=== PATIENT | female | born 1935 | race Caucasian/White ===

== ENCOUNTER 2017-03-31 20:13 | Emergency (ER) | payer MEDICARE, OTHER ==
--- NOTE | 2017-03-31 21:23 | ERNOTE ---
Abdominal HPI - General Chief Complaint: Abdominal Pain Time Seen by Provider: 03/31/17 21:13 Source: patient, family Exam Limitations: no limitations - Immun/Allergies/Home Medications Immunizatons: IMMUNIZATION HX Immunizations Up to Date No Immunizations Comment 2007 History of Influenza Vaccine No Hx Pneumococcal Vaccination Yes Allergies/Adverse Reactions: Allergies prednisone Adverse Reaction (Intermediate, Verified 05/14/16 17:05) fast HR, "feels like heart is going to jump out of skin" Sulfa (Sulfonamide Antibiotics) [Sulfa(Sulfonamide Antibiotics)] Adverse Reaction (Mild, Verified 05/14/16 17:05) RASH Home Medications: HOME MEDICATIONS Atorvastatin Calcium 10 mg PO HS 05/24/12 [Last Taken 11/26/15] Beta-Carotene(A) W-C , E/Min [Ocuvite] 1 tab PO DAILY 05/24/12 [Last Taken 11/26] Metoprolol Tartrate 25 mg PO BID 05/24/12 [Last Taken 11/27/15] Omeprazole [Prilosec Generic] 20 mg PO BID 05/24/12 [Last Taken 11/27/15] Acetaminophen [Tylenol] 1,000 mg PO Q6H PRN 05/21/15 [Last Taken Unknown] Blood Sugar Diagnostic, Drum [Accu-Chek Compact] 1 each MC DAILY 05/21/15 [Last Taken 11/27/15] Cholecalciferol (Vitamin D3) [Vitamin D] 1,000 unit PO DAILY 05/21/15 [Last Taken 11/27/15] Furosemide [Lasix] 20 mg PO 2XW 05/21/15 [Last Taken 11/24/15] Glimepiride [Amaryl] 8 mg PO DAILY@0700 05/21/15 [Last Taken 11/27/15] Losartan Potassium [Cozaar] 50 mg PO DAILY 05/21/15 [Last Taken 11/27/15] Potassium Chloride [Klor-Con 10] 10 meq PO 2XW 05/21/15 [Last Taken 11/24/15] sitaGLIPtin PHOSPHATE [Januvia] 25 mg PO DAILY 05/21/15 [Last Taken 11/27/15] traMADol HCL [Ultram] 50 mg PO Q6H PRN 05/21/15 [Last Taken Unknown] traZODone HCL [Desyrel] 100 mg PO HS PRN 05/21/15 [Last Taken 11/26/15] Azelastine/Fluticasone [Dymista Nasal [place]] 1 spray NS BID 10/29/15 [Last Taken 11/27/15] Cyanocobalamin [Vitamin B-12] 1,000 mcg PO DAILY 10/29/15 [Last Taken 11/27/15] HYDROcodone/ACETAMINOPHEN [Lortab 5-325 mg Tablet] 1 each PO Q6H PRN 10/29/15 [ Last Taken Unknown] Propylene Glycol/Peg 400 [Systane 0.3-0.4% Eye Drops] 1 drop OP BID 10/29/15 [ Last Taken 11/27/15] clonazePAM [Klonopin] 0.5 mg PO DAILY PRN 10/29/15 [Last Taken Unknown] Estrogens, Conjugated [Premarin] 0.5 gm VG 2XW 11/27/15 [Last Taken Unknown] Levofloxacin [Levaquin] 500 mg PO Q48H #5 tablet 04/01/17 [Last Taken Unknown] - History of Present Illness Narrative: Pt states she had abdominal pain that started in the RLQ and moved to the RUQ then across the upper abdomen. Timing: getting worse Quality: moderate, cramping Activities at Onset: none Modifying Factors - (Worsens): Present: movement Review of Systems - Review of Systems Constitutional: Absent: recent illness EYE: Absent: no symptoms reported ENT: Absent: no symptoms reported Respiratory: Absent: shortness of breath Cardiology: Absent: chest pain Gastrointestinal/Abdominal: Present: See HPI, diarrhea, abdominal pain. Absent : nausea, vomiting Genitourinary: Present: no symptoms reported Musculoskeletal: Present: no symptoms reported Skin: Present: no symptoms reported Neurological: Present: no symptoms reported Endocrine: Present: no symptoms reported Hematologic/Lymphatic: Present: no symptoms reported Psych: Present: no symptoms reported - Patient's Past Medical History Patient History - Medical: Arthritis, Cataracts, Diabetes Type 2, Depression, GERD, Osteoarthritis, Renal Disease, Other Patient History - Cardiac/Respiratory: Hypertension, Hyperlipidemia Patient History - Cancer: No Hx of Cancer Patient History - Surgical Procedures: Cataracts, Cholecystectomy, Colonoscopy, Hysterectomy, Other Patient History - Other: None - Family History Father Family History - Medical: , Other Family History - Cardiac/Respiratory: No pertinent hx Brother Family History - Medical:  Family History - Cardiac/Respiratory: No pertinent hx Mother Family History - Medical: , Alzheimer's Disease - Social History Living Situations: alone Abuse History: No History of abuse Psych History: No pertinent hx Smoking Status: Never smoker Have you smoked in the past 12 months: No Do you dip or chew tobacco: No Alcohol Use: none Drug Use: none - Immunizations Immunizations Up to Date: No Hx Pneumococcal Vaccination: Yes History of Influenza Vaccine: No Physical Exam - Physical Exam General Appearance: Present: wd/wn, alert, no apparent distress Head Exam: Present: normal inspection, no evidence of injury Neck: Present: normal inspection, nontender Respiratory: Present: no respiratory distress, normal breath sounds, lungs clear Cardiovascular/Chest: Present: regular rate, rhythm, no murmur, normal peripheral pulses Gastrointestinal/Abdominal: Present: tenderness - RUQ and RLQ, abnormal bowel sounds - hyperactive Back Exam: Present: normal inspection, normal range of motion Extremity Exam: Present: normal inspection, normal range of motion, no edema Neurological Exam: Present: alert, oriented, normal mood/affect Skin Exam: Present: normal color, warm/dry Lymphatic Exam: Present: no adenopathy ED Progress - Results and Orders Patient's Lab Results:: I have reviewed the patient's lab results. Results and Orders: Laboratory Tests 03/31/17 03/31/17 03/31/17 21:10 21:36 21:36 WBC 11.3 H Hgb 9.7 L Hct 28.0 L Plt Count 248 Sodium 135 Potassium 4.7 H Chloride 100 Carbon Dioxide 19.8 L BUN 61 H Creatinine 2.73 H D Random Glucose 203 H Calcium 8.6 Total Bilirubin 0.2 AST 14 ALT 26 Alkaline Phosphatase 138 Total Protein 7.3 Albumin 3.3 L Amylase 121 H Lipase 210 Urine Color Yellow Urine Appearance Cloudy Urine pH 6.0 Ur Specific [place] 1.015 Urine Protein 100 H Urine Glucose (UA) Negative Urine Ketones Negative Urine Blood 50 H Urine Nitrate Negative Urine Bilirubin Negative Prot Sulfosalicylic Acd 3+ H Urine Urobilinogen Normal Ur Leukocyte Esterase 500 H Urine RBC >50 H Urine WBC >50 H Urine Culture Comments Culture to follow - Vital Signs Patient's Vital Signs:: I have reviewed the patient's vital signs. Vital Signs: Vital Signs 03/31/17 20:28 Temperature 36.0 C L Pulse Rate 94 Respiratory 20 Rate Blood Pressure 141/63 O2 Sat by Pulse 96 Oximetry - Progress/Reassessment Chief Complaint: Abdominal Pain Departure - Departure Clinical Impression: Pyelonephritis Disposition: Home self-care Condition: Good Instructions: Pyelonephritis, Adult, [id number] Referrals: Melina Floyd DO [Primary Care Provider] - Prescriptions: Levofloxacin [Levaquin] 500 mg PO Q48H #5 tablet
[2017-03-31 21:34] LABS: Urine Bilirubin Negative (NEGATIVE); Urine Blood 50 /ul (NEGATIVE); Urine Ketone Negative (NEGATIVE); Urine Nitrite Negative (NEGATIVE); Urine Protein 100 mg/dL (NEGATIVE); Urine Specific Gravity 1.015 SP.GR. (1.005-1.010); Urine Urobilinogen Normal (NORMAL)
[2017-03-31 21:37] LABS: Hemoglobin 9.7 gm/dL (12.5-16.0); Mean Cell Volume 104.9 fl (78-100); Mean Corpuscular Hemoglobin 36.3 pg (27-31); Mean Corpuscular Hgb Conc 34.6 g/dl (32-36); Mean Platelet Volume 10.1 fl (6.0-9.5); Neutrophil # 5.8 K/mm3 (1.3-6.0); Neutrophil % 51.6 % (42-75.0); Platelet Count 248 K/mm3 (150-450); Red Blood Count 2.67 M/mm3 (4.2-5.4); Red Cell Distribution Width 14.6 % (11.5-14.0); White Blood Count 11.3 K/mm3 (4.0-10.5)
[2017-03-31 21:52] LABS: Urine Appearance Cloudy; Urine Color Yellow
[2017-03-31 21:53] LABS: Urine RBC >50 /hpf (0-5); Urine WBC >50 /hpf (0-5)
[2017-03-31 21:54] LABS: Albumin * 3.3 gm/dl (3.4-5.0); Anion Gap 19.9 mmol/L (6.8-13.8); BUN/Creatinine Ratio 22.3 (9.0-21.6); Bilirubin, Total 0.2 mg/dL (0.0-1.1); Ca. Corrected For Albumin 8.8 mg/dL (8.4-10.2); Calcium * 8.6 mg/dL (7.9-10.9); Carbon Dioxide 19.8 mmol/L (24-32.6); Potassium 4.7 mmol/L (3.4-4.6); Total Protein 7.3 gm/dL (6.2-8.2)
[2017-03-31] MEDS ORDERED: NORMAL SALINE 1,000 ML IV ONE (23:39)
[2017-04-01 01:14] VITALS: BP 157/86
[2017-04-01] MEDS ORDERED: LEVOFLOXACIN 500 MG TABLET PO ONE (02:25)
[2017-04-01] MEDS ORDERED: LEVOFLOXACIN 500 MG TABLET ONE (02:32)
[2017-04-01] MEDS ORDERED: LEVOFLOXACIN 250 MG TABLET ONE (02:33)
== END 2017-04-01 02:38 | disposition home or self-care (01) ==
LOC: ER 20:13
DX: N12 Tubulo-interstitial nephritis, not specified as acute or chronic (principal)

== ENCOUNTER 2017-04-11 08:45 | Inpatient (IN) | payer MEDICARE, OTHER ==
[2017-04-11 09:21] LABS: Hemoglobin A1C 8.6 % (4.00-6.0)
[2017-04-11 09:32] LABS: Anion Gap 17.4 mmol/L (6.8-13.8); Blood Urea Nitrogen 73 mg/dL (3-23); Calcium * 8.1 mg/dL (7.9-10.9); Carbon Dioxide 19.9 mmol/L (24-32.6); Chloride 101 mmol/L (97-106); Glucose * 214 mg/dL (70-110); Potassium 5.3 mmol/L (3.4-4.6); Sodium 133 mmol/L (132-142)
--- NOTE | 2017-04-11 15:22 | HP ---
Chief Complaint - Chief Complaint Date of Service: 04/11/17 Time of Service: 15:09 Chief Complaint: Worsening kidney function History of Present Illness: The patient has a 3 month diabetes follow-up visit with me next week so in preparation for this visit she had her diabetes labs including a BMP and a A1c completed earlier today. Her creatinine is significantly elevated at 3.3. Of note, the patient's baseline creatinine is around 1.5-1.7. The patient follows with lay ups assembler, Dr. Sheldon and I called him today to discuss her worsening kidney function and he agreed with admission to the hospital for further workup and evaluation. The patient denies any new issues or concerns but continues to complain of nausea and vague abdominal pain which has been going on for at least the past 3 months. The patient was recently in the emergency department where she was found to have a urinary tract infection and was treated with oral Levaquin. Overall, the patient states that she feels at her baseline. She denies any new medications other than the antibiotic (levaquin) she was prescribed through the emergency department. - Patient's Past Medical History Patient History - Medical: Arthritis, Cataracts, Diabetes Type 2, Depression, GERD, Osteoarthritis, Renal Disease, Other Patient History - Cardiac/Respiratory: Hypertension, Hyperlipidemia Patient History - Cancer: No Hx of Cancer Patient History - Surgical Procedures: Cataracts, Cholecystectomy, Colonoscopy, Hysterectomy, Other Patient History - Other: None - Family History Father Family History - Medical: , Other Family History - Cardiac/Respiratory: No pertinent hx Brother Family History - Medical:  Family History - Cardiac/Respiratory: No pertinent hx Mother Family History - Medical: , Alzheimer's Disease - Social History Living Situations: alone Abuse History: No History of abuse Psych History: No pertinent hx Have you smoked in the past 12 months: No Do you dip or chew tobacco: No Alcohol Use: none Drug Use: none - Immunizations Immunizations Up to Date: No Hx Pneumococcal Vaccination: Yes History of Influenza Vaccine: No Review Of Systems (GEN) - Review of Systems Generalized/Overall Review: Present: Fatigue - chronic EENTM: Present: No Symptoms Reported Respiratory: Present: No Symptoms Reported Cardiac: Present: Edema - chronic Abdominal: Present: Nausea, Abdominal Pain Genitourinary: Present: No Symptoms Reported Musculoskeletal: Present: Joint Pain - chronic Neurological: Present: No Symptoms Reported Skin: Present: No Symptoms Reported Endocrine: Present: No Symptoms Reported Misc: All systems neg except as marked Immunizations: IMMUNIZATION HX Immunizations Up to Date No History of Influenza Vaccine No Hx Pneumococcal Vaccination Yes Allergies/Adverse Reactions: Allergies Allergy/AdvReac Type Severity Reaction Status Date / Time prednisone AdvReac Intermediate fast HR, Verified 05/14/16 17:05 "feels like heart is going to jump out of skin" Sulfa (Sulfonamide AdvReac Mild RASH Verified 05/14/16 17:05 Antibiotics) [Sulfa(Sulfonamide Antibiotics)] Home Medications: HOME MEDICATIONS Atorvastatin Calcium 10 mg PO HS 05/24/12 [Last Taken 11/26/15] Beta-Carotene(A) W-C , E/Min [Ocuvite] 1 tab PO DAILY 05/24/12 [Last Taken 11/26] Metoprolol Tartrate 25 mg PO BID 05/24/12 [Last Taken 11/27/15] Omeprazole [Prilosec Generic] 20 mg PO BID 05/24/12 [Last Taken 11/27/15] Acetaminophen [Tylenol] 1,000 mg PO Q6H PRN 05/21/15 [Last Taken Unknown] Blood Sugar Diagnostic, Drum [Accu-Chek Compact] 1 each MC DAILY 05/21/15 [Last Taken 11/27/15] Cholecalciferol (Vitamin D3) [Vitamin D] 1,000 unit PO DAILY 05/21/15 [Last Taken 11/27/15] Furosemide [Lasix] 20 mg PO 2XW 05/21/15 [Last Taken 11/24/15] Glimepiride [Amaryl] 8 mg PO DAILY@0700 05/21/15 [Last Taken 11/27/15] Losartan Potassium [Cozaar] 50 mg PO DAILY 05/21/15 [Last Taken 11/27/15] Potassium Chloride [Klor-Con 10] 10 meq PO 2XW 05/21/15 [Last Taken 11/24/15] sitaGLIPtin PHOSPHATE [Januvia] 25 mg PO DAILY 05/21/15 [Last Taken 11/27/15] traMADol HCL [Ultram] 50 mg PO Q6H PRN 05/21/15 [Last Taken Unknown] traZODone HCL [Desyrel] 100 mg PO HS PRN 05/21/15 [Last Taken 11/26/15] Azelastine/Fluticasone [Dymista Nasal [place]] 1 spray NS BID 10/29/15 [Last Taken 11/27/15] Cyanocobalamin [Vitamin B-12] 1,000 mcg PO DAILY 10/29/15 [Last Taken 11/27/15] HYDROcodone/ACETAMINOPHEN [Lortab 5-325 mg Tablet] 1 each PO Q6H PRN 10/29/15 [ Last Taken Unknown] Propylene Glycol/Peg 400 [Systane 0.3-0.4% Eye Drops] 1 drop OP BID 10/29/15 [ Last Taken 11/27/15] clonazePAM [Klonopin] 0.5 mg PO DAILY PRN 10/29/15 [Last Taken Unknown] Estrogens, Conjugated [Premarin] 0.5 gm VG 2XW 11/27/15 [Last Taken Unknown] Levofloxacin [Levaquin] 500 mg PO Q48H #5 tablet 04/01/17 [Last Taken Unknown] Exam - Exam Vital Signs: Vital Signs - Last Taken Temp 36.0 C L 03/31/17 20:28 Pulse Resp BP 157/86 04/01/17 05:29 Pulse Ox Constitutional: Present: Alert, Oriented x3, Cooperative, Well developed, Well nourished, No distress, Elderly ENT Exam: Present: hard of hearing, moist mucous membranes Eye Exam: bilateral eye: normal inspection, EOMI Respiratory: Present: lungs clear, normal breath sounds, no respiratory distress , no accessory muscle use Cardiovascular/Chest: Present: regular rate, rhythm, edema Abdomen: Present: soft, nontender, hypoactive Extremity: Present: lower extremity edema Skin Exam: Present: other - Bilateral LE venous stasis dermatitis Neurologic: Present: alert, normal mood/affect, oriented x 3 Appearance: Present: appropriate appearance, appropriate insight, neat Eye contact: Present: cooperative, good eye contact, normal speech Thoughts: Present: normal thought pattern, no apparent hallucination Diagnostic Studies: Abnormal Lab Results 04/11/17 04/11/17 Range/Units 08:58 08:58 Potassium 5.3 H (3.4-4.6) mmol/L Carbon Dioxide 19.9 L (24-32.6) mmol/L Anion Gap 17.4 H (6.8-13.8) mmol/L BUN 73 H (3-23) mg/dL Creatinine 3.32 H D (0.4-1.4) mg/dL Est GFR (Non-Af Amer) 14 L D (60-130) mL/min BUN/Creatinine Ratio 22.0 H (9.0-21.6) Random Glucose 214 H (70-110) mg/dL Hemoglobin A1c 8.6 H (4.00-6.0) % Laboratory Results Sodium 133 mmol/L (132-142) 04/11/17 08:58 Plasma Sodium 135 mmol/L (130-142) 04/11/17 08:58 Potassium 5.3 mmol/L (3.4-4.6) H 04/11/17 08:58 Chloride 101 mmol/L (97-106) 04/11/17 08:58 Carbon Dioxide 19.9 mmol/L (24-32.6) L 04/11/17 08:58 Anion Gap 17.4 mmol/L (6.8-13.8) H 04/11/17 08:58 BUN 73 mg/dL (3-23) H 04/11/17 08:58 Creatinine 3.32 mg/dL (0.4-1.4) H D 04/11/17 08:58 Est GFR (Non-Af Amer) 14 mL/min (60-130) L D 04/11/17 08:58 BUN/Creatinine Ratio 22.0 (9.0-21.6) H 04/11/17 08:58 Random Glucose 214 mg/dL (70-110) H 04/11/17 08:58 Mean Blood Glucose 200 mg/dL 04/11/17 08:58 Hemoglobin A1c 8.6 % (4.00-6.0) H 04/11/17 08:58 Calcium 8.1 mg/dL (7.9-10.9) 04/11/17 08:58 Assessment/Plan - Narrative Narrative: IMPRESSION & PLAN: MONIQUE on CKD Stage 3 -Admit to Med-Surg, inpatient status. Patient will need to be inpatient for more than 2 midnights to allow for appropriate work-up and treatment of the patients MONIQUE. -Unknown etiology at this time. Further work-up ordered to help identify the possible cause of the patients acute renal failure. Work-up includes: -Recheck BMP -UA with culture if indicated -Microalbumin -Urine electrolytes and urine creatinine (calculate FeUN as patient is on Lasix) -Urine and serum osmolality -Bilateral renal ultrasound -Hold nephrotoxic medications including -Strict I&Os -Daily standing weight -IVF hydration with NS @ 125cc/hr CHRONIC STABLE MEDICAL CONDITIONS: Type 2 Diabetes Mellitus: Hold home medications. Monitor BG AC, HS and PRN. Medium dose correctional insulin TID with meals. Consistent carb diet. Anxiety and Depression: Continue home medications alprazolam PRN, Lexapro Hyperlipidemia: Hold home atorvastatin for now while working up MONIQUE Benign Essential Hypertension: Hold home losartan due to MONIQUE. Continue home metoprolol. Monitor BP with goal BP less than 140/90mmHg. GERD: Discontinue home omeprazole. Start famotidine 20mg daily. Insomnia: Continue home trazodone. MDS with history of Macrocytic Anemia: Follows with heme/onc, Dr. Hare. Peripheral smear on 04/24/2012 was unremarkable. BMB on 05/03/2012 showed early MDS. VTE ppx: Heparin, SCDs Code Status: Full Code per patient request - Assessment/Plan (1) MONIQUE (acute kidney injury) Problem: Acute (2) Acute renal failure (ARF) Problem: Acute (3) CKD (chronic kidney disease) stage 3, GFR 30-59 ml/min Problem: Chronic (4) Type 2 diabetes mellitus Problem: Chronic (5) Anxiety and depression Problem: Chronic (6) Hyperlipidemia Problem: Chronic (7) Benign essential hypertension Problem: Chronic (8) GERD (gastroesophageal reflux disease) Problem: Chronic (9) Insomnia Problem: Chronic (10) MDS (myelodysplastic syndrome) Problem: Chronic (11) Macrocytic anemia Problem: Chronic
[2017-04-11 15:56] LABS: Mean Corpuscular Hgb Conc 33.6 g/dl (32-36); Mean Platelet Volume 10.4 fl (6.0-9.5); Neutrophil # 7.6 K/mm3 (1.3-6.0); Neutrophil % 61.9 % (42-75.0); Platelet Count 220 K/mm3 (150-450); Red Blood Count 2.14 M/mm3 (4.2-5.4); Red Cell Distribution Width 14.6 % (11.5-14.0); White Blood Count 12.2 K/mm3 (4.0-10.5)
[2017-04-11 16:04] LABS: Hematocrit 22.9 % (37.0-47.0); Hemoglobin 7.7 gm/dL (12.5-16.0)
[2017-04-11 16:12] LABS: Urine Bilirubin Negative (NEGATIVE); Urine Blood 250 /ul (NEGATIVE); Urine Ketone Negative (NEGATIVE); Urine Nitrite Negative (NEGATIVE); Urine Protein 30 mg/dL (NEGATIVE); Urine Urobilinogen Normal (NORMAL)
[2017-04-11 16:14] LABS: ALT 19 U/L (19-67); AST 14 U/L (0-48); Albumin * 2.8 gm/dl (3.4-5.0); Alkaline Phosphatase * 119 U/L (50-170); Anion Gap 18.4 mmol/L (6.8-13.8); BUN/Creatinine Ratio 21.4 (9.0-21.6); Bilirubin, Total 0.3 mg/dL (0.0-1.1); Bilirubin,Indirect 0.2 mg/dL (0.1-0.7); Blood Urea Nitrogen 69 mg/dL (3-23); Calcium * 8.3 mg/dL (7.9-10.9); Carbon Dioxide 16.6 mmol/L (24-32.6); Chloride 105 mmol/L (97-106); Glucose * 106 mg/dL (70-110); Sodium 135 mmol/L (132-142); Total Protein 6.4 gm/dL (6.2-8.2)
[2017-04-11 16:23] LABS: Urine Amorphous Sediment Few - 1+ (NONE-FEW); Urine Appearance Clear; Urine Bacteria TRACE; Urine Color Yellow
[2017-04-11 16:36] LABS: Microalbumin 225 mcg/L; Microalbumin/Creatinine Ratio 511 mcg/mgCR (0-30); Urine Creatinine 44 mg/dL (60-200)
[2017-04-11] MEDS: INSULIN LISPRO 100 UNITS/ML VIAL SC SCH (17:28)
[2017-04-11] MEDS: HEPARIN SODIUM,PORCINE 5,000 UNITS/ML VIAL SC SCH (17:29)
[2017-04-11] MEDS: NORMAL SALINE 1,000 ML IV PRN (17:29)
[2017-04-11] MEDS ORDERED: MORPHINE SULFATE 2 MG/ML DISP.SYRIN IV PRN (17:31)
[2017-04-11] MEDS ORDERED: ONDANSETRON HCL/PF 2 MG/ML VIAL IV PRN (17:31)
[2017-04-11 19:41] LABS: Urine Bilirubin Negative (NEGATIVE); Urine Blood 250 /ul (NEGATIVE); Urine Ketone Negative (NEGATIVE); Urine Nitrite Negative (NEGATIVE); Urine Protein 100 mg/dL (NEGATIVE); Urine Urobilinogen Normal (NORMAL)
[2017-04-11 19:53] LABS: Urine Amorphous Sediment Moderate - 2+ (NONE-FEW); Urine Appearance Cloudy; Urine Bacteria 3+; Urine Color Pale Yellow
[2017-04-11] MEDS ORDERED: FLU VACC QS2017-18(6MOS UP)/PF 60 MCG/0.5 ML SYRINGE IM ONE (20:00)
[2017-04-11] MEDS: NYSTATIN 15 APPL BTL TP SCH ×2 (20:24→21:01)
[2017-04-12] MEDS: HEPARIN SODIUM,PORCINE 5,000 UNITS/ML VIAL SC SCH ×2 (03:35→15:44)
[2017-04-12 06:13] LABS: Hematocrit 33.6 % (37.0-47.0); Hemoglobin 11.5 gm/dL (12.5-16.0); Mean Cell Volume 98.2 fl (78-100); Mean Corpuscular Hemoglobin 33.6 pg (27-31); Mean Corpuscular Hgb Conc 34.2 g/dl (32-36); Mean Platelet Volume 10.2 fl (6.0-9.5); Platelet Count 202 K/mm3 (150-450); Red Blood Count 3.42 M/mm3 (4.2-5.4); Red Cell Distribution Width 16.9 % (11.5-14.0)
[2017-04-12 06:33] LABS: Anion Gap 16.4 mmol/L (6.8-13.8); BUN/Creatinine Ratio 23.2 (9.0-21.6); Calcium * 8.3 mg/dL (7.9-10.9); Carbon Dioxide 20.3 mmol/L (24-32.6); Estimated Creat Clear 13.1; Potassium 4.7 mmol/L (3.4-4.6)
[2017-04-12] MEDS: INSULIN LISPRO 100 UNITS/ML VIAL SC SCH ×3 (06:47→17:24)
[2017-04-12] MEDS: NORMAL SALINE 1,000 ML IV PRN ×2 (07:52→15:44)
[2017-04-12] MEDS: NYSTATIN 15 APPL BTL TP SCH ×2 (08:48→21:52)
[2017-04-12] MEDS: FAMOTIDINE 20 MG TABLET PO SCH (08:48)
[2017-04-12] MEDS ORDERED: ACETAMINOPHEN 500 MG TABLET PO PRN (08:56)
[2017-04-12] MEDS ORDERED: ALPRAZolam 0.5 MG TABLET PO PRN (08:56)
[2017-04-12] MEDS ORDERED: SENNOSIDES/DOCUSATE SODIUM 1 TAB TABLET PO PRN (08:56)
[2017-04-12] MEDS ORDERED: POLYVINYL ALCOHOL 150 DROP BTL OP SCH (09:06)
--- NOTE | 2017-04-12 09:51 | PN ---
Subjective - Date and Time Seen Date: 04/12/17 Time: 09:49 Subjective Narrative: Patient seen and examined at bedside this AM. No acute issues overnight. Patient admits to feeling well this AM and states that overall she feels markedly better than yesterday. Her fatigue is better and her abdominal pain is gone this AM. Objective - Review of Systems Generalized/Overall Review: Reports: Weakness - generalized, improved, Fatigue - improved EENTM: Reports: No Symptoms Reported Respiratory: Reports: No Symptoms Reported Cardiac: Reports: Edema - chronic Abdominal: Reports: No Symptoms Reported. Denies: Nausea, Vomiting, Abdominal Pain Genitourinary Symptoms: Reports: No Symptoms Reported Musculoskeletal Complaints: Reports: Joint Pain - chronic Neurological: Reports: No Symptoms Reported Skin: Reports: No Symptoms Reported Endocrine: Reports: No Symptoms Reported Misc: All systems neg except as marked - Vitals Vitals: Last Vital Signs Temp 36.8 C 04/12/17 07:08 Pulse 107 H 04/12/17 07:08 Resp 18 04/12/17 07:08 BP 140/59 04/12/17 07:08 Pulse Ox 96 04/12/17 07:08 - Abnormal Lab Findings Abnormal Lab Findings: Abnormal Lab Results 04/11/17 04/11/17 04/11/17 Range/Units 14:40 15:49 16:00 WBC 12.2 H (4.0-10.5) K/mm3 RBC 2.14 L (4.2-5.4) M/mm3 Hgb 7.7 L* D (12.5-16.0) gm/dL Hct 22.9 L* (37.0-47.0) % MCV 107.0 H (78-100) fl MCH 36.0 H (27-31) pg RDW 14.6 H (11.5-14.0) % MPV 10.4 H (6.0-9.5) fl Immature Gran % (Auto) 1.60 H (0.001-0.429) % Immature Gran # (Auto) 0.19 H (0.000-0.0310) K/mm3 Monocytes % 9.7 H (0.0-9) % Neutrophils # 7.6 H (1.3-6.0) K/mm3 Monocytes # 1.2 H (0.0-1.0) k/mm3 Potassium 5.0 H (3.4-4.6) mmol/L Chloride (97-106) mmol/L Carbon Dioxide 16.6 L (24-32.6) mmol/L Anion Gap 18.4 H (6.8-13.8) mmol/L BUN 69 H (3-23) mg/dL Creatinine 3.22 H (0.4-1.4) mg/dL Est GFR (Non-Af Amer) 15 L (60-130) mL/min BUN/Creatinine Ratio (9.0-21.6) Random Glucose (70-110) mg/dL Albumin 2.8 L (3.4-5.0) gm/dl Urine Protein 30 H (NEGATIVE) mg/dL Urine Blood 250 H (NEGATIVE) /ul Prot Sulfosalicylic Acd (0) mg/dL Ur Leukocyte Esterase 100 H (NEGATIVE) /ul Urine RBC 5-10 H (0-5) /hpf Urine WBC 5-10 H (0-5) /hpf Ur Epithelial Cells 5-10 H (0-5) /hpf Amorphous Sediment (NONE-FEW) Urine Bacteria (NONE) Ur Random Potassium (25-125) mmol/L Urine Creatinine (60-200) mg/dL Microalb/Creat Ratio (0-30) mcg/mgCR Urine Calcium (2.0-17.0) mg/dL Crossmatch 04/11/17 04/11/17 04/11/17 Range/Units 16:15 16:15 17:29 WBC (4.0-10.5) K/mm3 RBC (4.2-5.4) M/mm3 Hgb (12.5-16.0) gm/dL Hct (37.0-47.0) % MCV (78-100) fl MCH (27-31) pg RDW (11.5-14.0) % MPV (6.0-9.5) fl Immature Gran % (Auto) (0.001-0.429) % Immature Gran # (Auto) (0.000-0.0310) K/mm3 Monocytes % (0.0-9) % Neutrophils # (1.3-6.0) K/mm3 Monocytes # (0.0-1.0) k/mm3 Potassium (3.4-4.6) mmol/L Chloride (97-106) mmol/L Carbon Dioxide (24-32.6) mmol/L Anion Gap (6.8-13.8) mmol/L BUN (3-23) mg/dL Creatinine (0.4-1.4) mg/dL Est GFR (Non-Af Amer) (60-130) mL/min BUN/Creatinine Ratio (9.0-21.6) Random Glucose (70-110) mg/dL Albumin (3.4-5.0) gm/dl Urine Protein 100 H (NEGATIVE) mg/dL Urine Blood 250 H (NEGATIVE) /ul Prot Sulfosalicylic Acd 4+ H (0) mg/dL Ur Leukocyte Esterase 75 H (NEGATIVE) /ul Urine RBC 5-10 H (0-5) /hpf Urine WBC 10-25 H (0-5) /hpf Ur Epithelial Cells (0-5) /hpf Amorphous Sediment Moderate - 2+ H (NONE-FEW) Urine Bacteria 3+ H (NONE) Ur Random Potassium 24.7 L (25-125) mmol/L Urine Creatinine 44 L (60-200) mg/dL Microalb/Creat Ratio 511 H (0-30) mcg/mgCR Urine Calcium 1.6 L (2.0-17.0) mg/dL Crossmatch 04/11/17 04/12/17 04/12/17 Range/Units 19:01 06:12 06:12 WBC 12.0 H (4.0-10.5) K/mm3 RBC 3.42 L (4.2-5.4) M/mm3 Hgb 11.5 L (12.5-16.0) gm/dL Hct 33.6 L (37.0-47.0) % MCV (78-100) fl MCH 33.6 H (27-31) pg RDW 16.9 H (11.5-14.0) % MPV 10.2 H (6.0-9.5) fl Immature Gran % (Auto) (0.001-0.429) % Immature Gran # (Auto) (0.000-0.0310) K/mm3 Monocytes % (0.0-9) % Neutrophils # (1.3-6.0) K/mm3 Monocytes # (0.0-1.0) k/mm3 Potassium 4.7 H (3.4-4.6) mmol/L Chloride 109 H (97-106) mmol/L Carbon Dioxide 20.3 L (24-32.6) mmol/L Anion Gap 16.4 H (6.8-13.8) mmol/L BUN 57 H (3-23) mg/dL Creatinine 2.46 H D (0.4-1.4) mg/dL Est GFR (Non-Af Amer) 20 L D (60-130) mL/min BUN/Creatinine Ratio 23.2 H (9.0-21.6) Random Glucose 122 H (70-110) mg/dL Albumin (3.4-5.0) gm/dl Urine Protein (NEGATIVE) mg/dL Urine Blood (NEGATIVE) /ul Prot Sulfosalicylic Acd (0) mg/dL Ur Leukocyte Esterase (NEGATIVE) /ul Urine RBC (0-5) /hpf Urine WBC (0-5) /hpf Ur Epithelial Cells (0-5) /hpf Amorphous Sediment (NONE-FEW) Urine Bacteria (NONE) Ur Random Potassium (25-125) mmol/L Urine Creatinine (60-200) mg/dL Microalb/Creat Ratio (0-30) mcg/mgCR Urine Calcium (2.0-17.0) mg/dL Crossmatch See Detail - Exam Constitutional: Present: Alert, Oriented x3, Cooperative, Well developed, Well nourished, No distress, Elderly ENT Exam: Present: hard of hearing, moist mucous membranes Respiratory: Present: lungs clear, normal breath sounds, no respiratory distress , no accessory muscle use Cardiovascular/Chest: Present: regular rate, rhythm, systolic murmur, edema Abdomen: Present: soft, nontender, hypoactive Extremity: Present: lower extremity edema, other - venous stasis dermatitis skin changes to bilateral LEs Skin Exam: Present: other - venous stasis dermatitis skin changes to bilateral LEs Neurologic: Present: alert, normal mood/affect, oriented x 3 Appearance: Present: appropriate appearance, appropriate insight, neat, no memory impairment Eye contact: Present: cooperative, good eye contact, normal speech Thoughts: Present: normal thought pattern, no apparent hallucination Assessment/Plan Plan Narrative: IMPRESSION & PLAN: MONIQUE on CKD Stage 3 -Admit to Med-Surg, inpatient status. Patient will need to be inpatient for more than 2 midnights to allow for appropriate work-up and treatment of the patients MONIQUE. -Unknown etiology at this time but likely pre-renal given the improvement in kidney function this AM following IVF hydration. Further work-up ordered to help identify the possible cause of the patients acute renal failure. Work-up includes: -Urine culture pending. Hold off on antibiotics at this time. -Microalbumin -Urine electrolytes and urine creatinine (calculate FeUN as patient is on Lasix) -Urine and serum osmolality -Bilateral renal ultrasound on 04/11/2017 showed no focal renal mass or hydronephrosis, relatively echogenic appearance of renal parenchyma suggestive of renal parenchymal disease. -Hold nephrotoxic medications -Strict I&Os -Daily standing weight -Continue IVF hydration with NS @ 125cc/hr Hyperkalemia - Improving -Secondary to above -Continue to monitor for now. Repeat BMP in AM. Systolic Murmur -Likely a flow murmur related to anemia however murmur persists this AM despite hemoglobin level improved so I have ordered a 2D echocardiogram for further evaluation MDS with history of Macrocytic Anemia -No signs of active bleeding. Patient transfused 2 Units of PRBCs on admission. -Patient follows with heme/onc, Dr. Hare. Peripheral smear on 04/24/2012 was unremarkable. BMB on 05/03/2012 showed early MDS. Given the patient's worsening kidney function and worsening anemia, one could consider further outpatient work-up with SPEP and UPEP for evaluation of possible multiple myeloma and/or repeat BMB. Patient is scheduled for routine follow-up with Dr. Hare in mid April 2017. CHRONIC STABLE MEDICAL CONDITIONS: Type 2 Diabetes Mellitus: Hold home medications. Monitor BG AC, HS and PRN. Medium dose correctional insulin TID with meals. Consistent carb diet. Anxiety and Depression: Continue home medications alprazolam PRN, Lexapro Hyperlipidemia: Hold home atorvastatin for now while working up MONIQUE Benign Essential Hypertension: Hold home losartan due to MONIQUE. Continue home metoprolol. Monitor BP with goal BP less than 140/90mmHg. GERD: Discontinue home omeprazole. Start famotidine 20mg daily. Insomnia: Continue home trazodone. VTE ppx: Heparin, SCDs Code Status: DNR Disposition: Kidney function improved this AM. Continue IVF hydration over the next 24 hours and reassess in AM. Possible discharge home tomorrow AM or within the next 1-2 days pending clinical course. - Problems/Diagnosis (1) MONIQUE (acute kidney injury) Problem: Acute (2) Acute renal failure (ARF) Problem: Acute (3) CKD (chronic kidney disease) stage 3, GFR 30-59 ml/min Problem: Chronic (4) Type 2 diabetes mellitus Problem: Chronic (5) Anxiety and depression Problem: Chronic (6) Hyperlipidemia Problem: Chronic (7) Benign essential hypertension Problem: Chronic (8) GERD (gastroesophageal reflux disease) Problem: Chronic (9) Insomnia Problem: Chronic (10) MDS (myelodysplastic syndrome) Problem: Chronic (11) Macrocytic anemia Problem: Chronic (12) Systolic murmur Problem: Acute (13) Anemia in CKD (chronic kidney disease) Problem: Chronic
[2017-04-12] MEDS: FLUTICASONE PROPIONATE 120 SPRAY INHALER NS SCH ×2 (09:54→21:51)
[2017-04-12] MEDS: ESCITALOPRAM OXALATE 10 MG TAB PO SCH (09:54)
[2017-04-12] MEDS: METOPROLOL TARTRATE 25 MG TABLET PO SCH ×2 (09:54→21:52)
[2017-04-12] MEDS: OMEGA-3 FATTY ACIDS 1 CAP CAPSULE PO SCH (09:54)
[2017-04-12] MEDS: CYANOCOBALAMIN 1,000 MCG TABLET PO SCH (09:55)
[2017-04-12] MEDS: POLYVINYL ALCOHOL 150 DROP BTL OP SCH (21:54)
[2017-04-13] MEDS: NORMAL SALINE 1,000 ML IV PRN (04:30)
[2017-04-13] MEDS: HEPARIN SODIUM,PORCINE 5,000 UNITS/ML VIAL SC SCH (04:56)
[2017-04-13 06:10] LABS: Hematocrit 30.3 % (37.0-47.0); Hemoglobin 10.3 gm/dL (12.5-16.0); Mean Cell Volume 98.4 fl (78-100); Mean Corpuscular Hemoglobin 33.4 pg (27-31); Mean Platelet Volume 10.4 fl (6.0-9.5); Neutrophil # 7.3 K/mm3 (1.3-6.0); Neutrophil % 59.7 % (42-75.0); Platelet Count 199 K/mm3 (150-450); Red Blood Count 3.08 M/mm3 (4.2-5.4); Red Cell Distribution Width 17.2 % (11.5-14.0); White Blood Count 12.3 K/mm3 (4.0-10.5)
[2017-04-13 06:19] LABS: Anion Gap 13.2 mmol/L (6.8-13.8); BUN/Creatinine Ratio 24.2 (9.0-21.6); Calcium * 8.1 mg/dL (7.9-10.9); Carbon Dioxide 20.2 mmol/L (24-32.6); Estimated Creat Clear 18.1; Potassium 4.4 mmol/L (3.4-4.6)
[2017-04-13] MEDS: INSULIN LISPRO 100 UNITS/ML VIAL SC SCH ×2 (07:25→12:05)
[2017-04-13] MEDS: FLUTICASONE PROPIONATE 120 SPRAY INHALER NS SCH (08:19)
[2017-04-13] MEDS: POLYVINYL ALCOHOL 150 DROP BTL OP SCH (08:19)
[2017-04-13] MEDS: NYSTATIN 15 APPL BTL TP SCH (08:20)
[2017-04-13] MEDS: ESCITALOPRAM OXALATE 10 MG TAB PO SCH (08:20)
[2017-04-13] MEDS: FAMOTIDINE 20 MG TABLET PO SCH (08:20)
[2017-04-13] MEDS: CYANOCOBALAMIN 1,000 MCG TABLET PO SCH (08:20)
[2017-04-13] MEDS: METOPROLOL TARTRATE 25 MG TABLET PO SCH (08:20)
[2017-04-13] MEDS: OMEGA-3 FATTY ACIDS 1 CAP CAPSULE PO SCH (08:20)
--- NOTE | 2017-04-13 10:10 | DS ---
(1) MONIQUE (acute kidney injury) Problem: Acute (2) Acute renal failure (ARF) Problem: Acute (3) CKD (chronic kidney disease) stage 3, GFR 30-59 ml/min Problem: Chronic (4) Type 2 diabetes mellitus Problem: Chronic (5) Anxiety and depression Problem: Chronic (6) Hyperlipidemia Problem: Chronic (7) Benign essential hypertension Problem: Chronic (8) GERD (gastroesophageal reflux disease) Problem: Chronic (9) Insomnia Problem: Chronic (10) MDS (myelodysplastic syndrome) Problem: Chronic (11) Macrocytic anemia Problem: Chronic (12) Systolic murmur Problem: Acute (13) Anemia in CKD (chronic kidney disease) Problem: Chronic Description of Stay: ADMISSION DATE: 04/11/2017 DISCHARGE DATE: 04/13/2017 ADMISSION HPI: The patient has a 3 month diabetes follow-up visit with me next week so in preparation for this visit she had her diabetes labs including a BMP and a A1c completed earlier today. Her creatinine is significantly elevated at 3.3. Of note, the patient's baseline creatinine is around 1.5-1.7. The patient follows with brake operator, Dr. Sheldon and I called him today to discuss her worsening kidney function and he agreed with admission to the hospital for further workup and evaluation. The patient denies any new issues or concerns but continues to complain of nausea and vague abdominal pain which has been going on for at least the past 3 months. The patient was recently in the emergency department where she was found to have a urinary tract infection and was treated with oral Levaquin. Overall, the patient states that she feels at her baseline. She denies any new medications other than the antibiotic (levaquin) she was prescribed through the emergency department. PROBLEM BASED HOSPITAL COURSE: MONIQUE on CKD Stage 3 -MONIQUE likely pre-renal given the improvement in kidney function following IVF hydration and transfusion of blood. -Urine culture no growth. Patient was NOT treated with antibiotics during her admission. -Bilateral renal ultrasound on 04/11/2017 showed no focal renal mass or hydronephrosis, relatively echogenic appearance of renal parenchyma suggestive of renal parenchymal disease. -Hold nephrotoxic medications -Strict I&Os -Daily standing weight Hyperkalemia - Resolved prior to discharge -Secondary to above Systolic Murmur -Likely a flow murmur related to anemia. 2D echo completed with results outlined below under radiology reports. MDS with history of Macrocytic Anemia -No signs of active bleeding. Patient transfused 2 Units of PRBCs on admission. -Patient follows with heme/onc, Dr. Hare. Peripheral smear on 04/24/2012 was unremarkable. BMB on 05/03/2012 showed early MDS. Given the patient's worsening kidney function and worsening anemia, one could consider further outpatient work-up with SPEP and UPEP for evaluation of possible multiple myeloma and/or repeat BMB. Patient is scheduled for routine follow-up with Dr. Hare in mid April 2017. CHRONIC STABLE MEDICAL CONDITIONS: Type 2 Diabetes Mellitus: Hold home medications. Monitor BG AC, HS and PRN. Medium dose correctional insulin TID with meals. Consistent carb diet. Anxiety and Depression: Continue home medications alprazolam PRN, Lexapro Hyperlipidemia: Hold home atorvastatin for now while working up MONIQUE Benign Essential Hypertension: Hold home losartan due to MONIQUE. Continue home metoprolol. Monitor BP with goal BP less than 140/90mmHg. GERD: Discontinue home omeprazole. Start famotidine 20mg daily. Insomnia: Continue home trazodone. VTE ppx: Heparin, SCDs Code Status: DNR FOLLOW-UP APPOINTMENTS: -Dr. Floyd on 04/14/2017 at 9:00 AM NEW OR CHANGED MEDICATIONS: -Famotidine 20 mg PO daily DISCONTINUED MEDICATIONS: -Omeprazole RADIOLOGY REPORTS: Bilateral renal ultrasound on 04/11/2017 showed: No focal renal mass or hydronephrosis. Relatively echogenic appearance of renal parenchyma suggestive renal parenchymal disease. Abdominal x-ray flat without rate on 04/11/2017 showed: Nonspecific, nonobstructive bowel gas pattern. Transthoracic 2-D echocardiogram on 04/12/2017: Left ventricle: Normal size. Moderate concentric left ventricular hypertrophy. Hyperdynamic. Ejection fraction of 76%. Wall motion is normal. Right ventricle: Not well visualized. Atria: Left atrium is mildly dilated. Right atrium is not well visualized. Mitral valve: Findings consistent with pulmonary wedge pressures greater than 20 mmHg. Findings consistent with diastolic dysfunction. No evidence of mitral valve prolapse. No mitral valve stenosis. Trace mitral regurgitation. Tricuspid valve: No stenosis. Right ventricular systolic pressure is elevated at 47 mmHg. Pulmonary hypertension. Aortic valve: Opens well. No hemodynamically significant valvular stenosis. No regurgitation. Pulmonic valve: No stenosis. Trace regurgitation. Pericardium/pleural: No pericardial effusion. Procedures Performed: none Discharge Disposition: [place] self care Disposition: [place] self-[facility] Condition: Stable Discharge Activity: Activity as tolerated Discharge Diet: Consistent carbs, Low salt, Low fat/chol Referrals: Melina Floyd DO [Primary Care Provider] - Problem Oriented Discharge Instructions to Patient/Family: Acute Kidney Injury Additional Patient Instructions (free text): Please make a TCM appointment at discharge, if applicable. Thank you! Alla @ [facility] 260. -Follow-up with Dr. Floyd on 04/14/2017 @ 9:00AM Prescriptions (Any new or edited meds): Famotidine 20 mg PO DAILY #30 tablet Complete Home Medications List: Complete Home Medication List: ALPRAZolam [Xanax] 0.5 mg PO TID PRN 04/11/17 Acetaminophen [Tylenol] 1,000 mg PO Q6H PRN 04/11/17 Atorvastatin Calcium [Lipitor] 10 mg PO HS 04/11/17 Azelastine/Fluticasone [Dymista Nasal Bryant] 1 spray NS BID 04/11/17 Ca/D3/Mag#11/Zinc/Bond Broker/Ab/Bor [Caltrate 600+D Plus Tablet] 1 each PO DAILY Calcium Citrate/Vitamin D3 [Calcium Citrate - Vit D Tablet] 1 each PO DAILY Cholecalciferol [Vitamin D] 1,000 unit PO DAILY 04/11/17 Cyanocobalamin [Vitamin B-12] 2,000 mcg PO DAILY 04/11/17 Escitalopram Oxalate [Lexapro] 10 mg PO DAILY 04/11/17 Fluticasone Propionate [Flonase] 1 spray NS BID 04/11/17 Furosemide [Lasix] 40 mg PO DAILY 04/11/17 Glimepiride 8 mg PO DAILY 04/11/17 Losartan Potassium [Cozaar] 50 mg PO DAILY 04/11/17 Metoprolol Tartrate [Lopressor] 25 mg PO BID 04/11/17 Sewell-3 Fatty Acids [Sewell-3] 1,000 mg PO DAILY 04/11/17 Potassium Chloride [Klor-Con Sprinkle] 10 meq PO 2XW 04/11/17 Propylene Glycol/Peg 400 [Systane 0.3-0.4% Eye Drops] 1 drop OP BID 04/11/17 Sennosides/Docusate Sodium [Senna-S Tablet] 1 each PO TID PRN 04/11/17 Vit C/Vit E AC/Lut/Copper/Zinc [Preservision Lutein Softgel] 1 each PO DAILY sitaGLIPtin PHOSPHATE [Januvia] 100 mg PO DAILY 04/11/17 traZODone HCL [Trazodone HCl] 100 mg PO HS 04/11/17 Famotidine 20 mg PO DAILY #30 tablet 04/13/17
[2017-04-13 11:01] VITALS: BP 146/65
--- NOTE | 2017-04-13 11:13 | ECHO ---
This report is available in the EMR
== END 2017-04-13 14:53 | disposition home or self-care (01) | DRG 684 ==
LOC: LAB 08:45 → MS 14:10
PROVIDERS: ADMIT Internal Medicine; ATTEND Internal Medicine
PROC: B246ZZZ Ultrasonography of Right and Left Heart (ICD-10-PCS; principal; 2017-04-12)
PROC: 30263N1 (ICD-10-PCS; 2017-04-12)
DX: N17.9 Acute kidney failure, unspecified (principal); E87.5 Hyperkalemia; E11.9 Type 2 diabetes mellitus without complications; I12.9 Hypertensive chronic kidney disease with stage 1 through stage 4 chronic kidney disease, or unspecified chronic kidney disease; E11.22 Type 2 diabetes mellitus with diabetic chronic kidney disease; N18.3 Chronic kidney disease, stage 3 (moderate); E78.5 Hyperlipidemia, unspecified; R01.1 Cardiac murmur, unspecified; D46.9 Myelodysplastic syndrome, unspecified; D63.1 Anemia in chronic kidney disease; Z23 Encounter for immunization
CPT/HCPCS: 36415; 74020; 76770; 80048; 80076; 81001; 82043; 82310; 82436; 82570; 83036; 83930; 83935; 84133; 84300; 84540; 85025; 85027; 86850; 86900; 87086; 90686; 93306; G0008; P9016

== ENCOUNTER 2017-05-01 19:33 | Inpatient (IN) | payer MEDICARE, OTHER ==
[2017-05-01] MEDS ORDERED: fentaNYL CITRATE/PF 50 MCG/ML AMPUL IM ONE ×2 (20:15→22:52)
--- NOTE | 2017-05-01 20:17 | ERNOTE ---
Back Pain ER HPI Date of Service: 05/01/17 Presenting Symptoms: hx chronic back pain Time Seen by Provider: 05/01/17 19:59 Source: patient Exam Limitations: no limitations Immunizations: IMMUNIZATION HX Immunizations Up to Date No History of Influenza Vaccine No Hx Pneumococcal Vaccination Yes Allergies/Adverse Reactions: Allergies prednisone Adverse Reaction (Intermediate, Verified 04/11/17 15:15) fast HR, "feels like heart is going to jump out of skin" Sulfa (Sulfonamide Antibiotics) [Sulfa(Sulfonamide Antibiotics)] Adverse Reaction (Mild, Verified 04/11/17 15:15) RASH Home Medications: HOME MEDICATIONS Atorvastatin Calcium [Lipitor] 10 mg PO HS 04/11/17 [Last Taken Unknown] Calcium Citrate/Vitamin D3 [Calcium Citrate - Vit D Tablet] 1 each PO DAILY [Last Taken Unknown] Escitalopram Oxalate [Lexapro] 10 mg PO DAILY 04/11/17 [Last Taken Unknown] Glimepiride 8 mg PO DAILY 04/11/17 [Last Taken Unknown] Losartan Potassium [Cozaar] 50 mg PO DAILY 04/11/17 [Last Taken Unknown] Metoprolol Tartrate [Lopressor] 25 mg PO BID 04/11/17 [Last Taken Unknown] Potassium Chloride [Klor-Con Sprinkle] 10 meq PO DAILY 04/11/17 [Last Taken Unknown] Propylene Glycol/Peg 400 [Systane 0.3-0.4% Eye Drops] 1 drop OP BID 04/11/17 [ Last Taken Unknown] Vit C/Vit E AC/Lut/Copper/Zinc [Preservision Lutein Softgel] 1 each PO DAILY [Last Taken Unknown] sitaGLIPtin PHOSPHATE [Januvia] 100 mg PO DAILY 04/11/17 [Last Taken Unknown] traZODone HCL [Trazodone HCl] 100 mg PO HS 04/11/17 [Last Taken Unknown] Famotidine 20 mg PO DAILY #30 tablet 04/13/17 [Last Taken Unknown] Narrative: 81 year old that experienced dysequilibrium for about four hours. The feelings of dysequilbirium have resolved. There is a history of vertigo, wherein when she has turned her head it would aggravate the symptoms. On this occasion there were no aggravating or relieving factors. Denies any headaches, fevers, chills, N/V/D, changes in vision. Complaints of lower back pain that is non radiating and is unlike other back pain that she has had for several years. Took Tylenol earlier for the back pain, one of her routing medication for chronic pain, has not decreased the back pain. No complaints of new lower extremities weakness or numbness/tingling. Date (Duration): 05/01/17 Time (Timing): 20:13 Timing: Reports: constant Quality/Severity: Reports: moderate, aching Location of pain: Reports: lower back. Denies: radiating to rt thigh/leg, radiating to lf thigh/leg Activities at Onset: Reports: rest Recent Injury?: Reports: no Modifying Factors - (Worsens): Reports: other - movement Associated Symptoms: Denies: fever/chills, constipation/incontinence, nausea/ vomiting, problems urinating, numbess/weakness in legs Review of Systems - Review of Systems Constitutional: Present: no symptoms reported EYE: Present: no symptoms reported ENT: Present: no symptoms reported Respiratory: Present: no symptoms reported Cardiology: Present: no symptoms reported Gastrointestinal/Abdominal: Present: no symptoms reported Genitourinary: Present: no symptoms reported Musculoskeletal: Present: See HPI Skin: Present: no symptoms reported Neurological: Present: no symptoms reported Endocrine: Present: no symptoms reported Hematologic/Lymphatic: Present: no symptoms reported - Patient's Past Medical History Patient History - Medical: Arthritis, Cataracts, Diabetes Type 2, Depression, GERD, Osteoarthritis, Renal Disease, Other Patient History - Cardiac/Respiratory: Hypertension, Hyperlipidemia Patient History - Cancer: No Hx of Cancer Patient History - Surgical Procedures: Cataracts, Cholecystectomy, Colonoscopy, Hysterectomy, Other Patient History - Other: None - Family History Father Family History - Medical: , Other Family History - Cardiac/Respiratory: No pertinent hx Family History - Cancer: No pertinent family hx Brother Family History - Medical:  Family History - Cardiac/Respiratory: No pertinent hx Family History - Cancer: History Unknown Mother Family History - Medical: , Alzheimer's Disease Family History - Cardiac/Respiratory: History Unknown Family History - Cancer: History Unknown - Social History Living Situations: other Abuse History: No History of abuse Psych History: No pertinent hx - Immunizations Immunizations Up to Date: No Hx Pneumococcal Vaccination: Yes History of Influenza Vaccine: No Physical Exam - Physical Exam General Appearance: Present: no apparent distress Head Exam: Present: normal inspection Eye Exam: Normal inspection: bilateral Ears, Nose, Throat: Present: normal ENT inspection Neck: Present: normal inspection Respiratory: Present: no respiratory distress Cardiovascular/Chest: Present: regular rate, rhythm Gastrointestinal/Abdominal: Present: nondistended Back Exam: Present: vertebral tenderness - at the L4-S1 area Extremity Exam: Present: normal except - - redness bilaterally at the both legs - chronic Neurological Exam: Present: alert, oriented, normal mood/affect, 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 Vital Signs: Vital Signs 05/01/17 19:37 Temperature 36.5 C Pulse Rate 80 Respiratory 12 Rate Blood Pressure 190/97 O2 Sat by Pulse 97 Oximetry - EKG EKG read: Interp. by me EKG Comments: Sinus tachycardia. Rate 120 and normal axis. - X-Ray X-Ray #1 X-Ray: lumbosacral - DJD; no lesions; A Interpretation: Interp. by me X-Ray #2 X-Ray: abdomen Interpretation: Interp. by me X-ray Comments: Normal gas pattern. - Progress/Reassessment Chief Complaint: Back Pain Progress:: Improved Progress Note-Subjective: 05/01/17 21:43 Given Metoprolol due to hypertension and tachycardia; but the blood pressure continued to increase. The patient remained asymptomatic when the blood pressure was found to have increased. Given Cardiazem 10 mg IV for hypertension and Rocephin 1 gram IV for UTI. Fentanyl 25 ug IM for pain. 05/01/17 21:46 Likely to be in early sepsis secondary to UTI. Discussed with Ana who will admit the patient. 05/01/17 21:47 Departure Clinical Impression: UTI (urinary tract infection), Sepsis, Uncontrolled hypertension - Departure Disposition: [facility] Condition: Fair
[2017-05-01 20:24] LABS: Hematocrit 31.7 % (37.0-47.0); Hemoglobin 10.8 gm/dL (12.5-16.0); Mean Cell Volume 100.3 fl (78-100); Mean Corpuscular Hemoglobin 34.2 pg (27-31); Mean Corpuscular Hgb Conc 34.1 g/dl (32-36); Mean Platelet Volume 10.5 fl (6.0-9.5); Neutrophil # 9.2 K/mm3 (1.3-6.0); Neutrophil % 59.7 % (42-75.0); Platelet Count 260 K/mm3 (150-450); Red Blood Count 3.16 M/mm3 (4.2-5.4); Red Cell Distribution Width 16.4 % (11.5-14.0); White Blood Count 15.4 K/mm3 (4.0-10.5)
[2017-05-01 20:26] LABS: Urine Bilirubin Negative (NEGATIVE); Urine Ketone Negative (NEGATIVE); Urine Nitrite Negative (NEGATIVE); Urine Protein Negative (NEGATIVE); Urine Urobilinogen Normal (NORMAL)
[2017-05-01] MEDS ORDERED: METOPROLOL TARTRATE 25 MG TABLET PO ONE (20:29)
[2017-05-01] MEDS ORDERED: fentaNYL CITRATE/PF 50 MCG/ML AMPUL ONE (20:30)
[2017-05-01] MEDS ORDERED: METOPROLOL TARTRATE 25 MG TABLET ONE (20:32)
[2017-05-01 20:35] LABS: Urine Appearance Slightly Cloudy; Urine Bacteria 2+; Urine Blood 5 /ul (NEGATIVE); Urine Color Pale Yellow; Urine RBC None Seen /hpf (0-5); Urine WBC >50 /hpf (0-5)
[2017-05-01 20:42] LABS: ALT 27 U/L (19-67); AST 14 U/L (0-48); Albumin * 3.3 gm/dl (3.4-5.0); Alkaline Phosphatase * 143 U/L (50-170); Anion Gap 12.5 mmol/L (6.8-13.8); BUN/Creatinine Ratio 11.8 (9.0-21.6); Bilirubin, Total 0.4 mg/dL (0.0-1.1); Blood Urea Nitrogen 28 mg/dL (3-23); Ca. Corrected For Albumin 9.3 mg/dL (8.4-10.2); Calcium * 9.1 mg/dL (7.9-10.9); Chloride 102 mmol/L (97-106); Glucose * 214 mg/dL (70-110); Lipase 155 U/L (73-393); Potassium 4.5 mmol/L (3.4-4.6); Sodium 137 mmol/L (132-142); Total Protein 7.2 gm/dL (6.2-8.2); Troponin I Less than 0.017 ng/ml (0.00-0.10)
[2017-05-01] MEDS ORDERED: DILTIAZEM HCL 5 MG/ML VIAL IV ONE ×2 (21:33→21:35)
[2017-05-01] MEDS ORDERED: NORMAL SALINE 1,000 ML IV PRN (21:34)
--- NOTE | 2017-05-02 00:34 | HP ---
<Melina Floyd - Last Filed: 05/02/17 10:17> Immunizations: IMMUNIZATION HX Immunizations Up to Date No History of Influenza Vaccine No Hx Pneumococcal Vaccination Yes Allergies/Adverse Reactions: Allergies Allergy/AdvReac Type Severity Reaction Status Date / Time prednisone AdvReac Intermediate fast HR, Verified 04/11/17 15:15 "feels like heart is going to jump out of skin" Sulfa (Sulfonamide AdvReac Mild RASH Verified 04/11/17 15:15 Antibiotics) [Sulfa(Sulfonamide Antibiotics)] Home Medications: HOME MEDICATIONS Atorvastatin Calcium [Lipitor] 10 mg PO HS 04/11/17 [Last Taken Unknown] Calcium Citrate/Vitamin D3 [Calcium Citrate - Vit D Tablet] 1 each PO DAILY [Last Taken Unknown] Escitalopram Oxalate [Lexapro] 10 mg PO DAILY 04/11/17 [Last Taken Unknown] Glimepiride 8 mg PO DAILY 04/11/17 [Last Taken Unknown] Losartan Potassium [Cozaar] 50 mg PO DAILY 04/11/17 [Last Taken Unknown] Metoprolol Tartrate [Lopressor] 25 mg PO BID 04/11/17 [Last Taken Unknown] Potassium Chloride [Klor-Con Sprinkle] 10 meq PO DAILY 04/11/17 [Last Taken Unknown] Propylene Glycol/Peg 400 [Systane 0.3-0.4% Eye Drops] 1 drop OP BID 04/11/17 [ Last Taken Unknown] Vit C/Vit E AC/Lut/Copper/Zinc [Preservision Lutein Softgel] 1 each PO DAILY [Last Taken Unknown] sitaGLIPtin PHOSPHATE [Januvia] 100 mg PO DAILY 04/11/17 [Last Taken Unknown] traZODone HCL [Trazodone HCl] 100 mg PO HS 04/11/17 [Last Taken Unknown] Famotidine 20 mg PO DAILY #30 tablet 04/13/17 [Last Taken Unknown] Exam - Exam Vital Signs: Vital Signs - Last Taken Temp 36.4 C L 05/02/17 06:40 Pulse 110 H 05/02/17 06:40 Resp 18 05/02/17 06:40 BP 172/93 05/02/17 06:40 Pulse Ox 96 05/02/17 06:40 Diagnostic Studies: Abnormal Lab Results 05/02/17 05/02/17 Range/Units 05:40 05:40 WBC 14.9 H (4.0-10.5) K/mm3 RBC 3.29 L (4.2-5.4) M/mm3 Hgb 11.2 L (12.5-16.0) gm/dL Hct 33.1 L (37.0-47.0) % MCV 100.6 H (78-100) fl MCH 34.0 H (27-31) pg RDW 16.3 H (11.5-14.0) % MPV 10.9 H (6.0-9.5) fl Immature Gran % (Auto) 1.00 H (0.001-0.429) % Immature Gran # (Auto) 0.15 H (0.000-0.0310) K/mm3 Neutrophils # 9.7 H (1.3-6.0) K/mm3 Lymphocytes # 3.6 H (1.5-3.5) k/mm3 Monocytes # 1.3 H (0.0-1.0) k/mm3 Potassium 4.8 H (3.4-4.6) mmol/L BUN 25 H (3-23) mg/dL Creatinine 1.83 H D (0.4-1.4) mg/dL Est GFR (Non-Af Amer) 28 L D (60-130) mL/min Random Glucose 248 H (70-110) mg/dL Albumin 2.9 L (3.4-5.0) gm/dl Laboratory Results WBC 14.9 K/mm3 (4.0-10.5) H 05/02/17 05:40 RBC 3.29 M/mm3 (4.2-5.4) L 05/02/17 05:40 Hgb 11.2 gm/dL (12.5-16.0) L 05/02/17 05:40 Hct 33.1 % (37.0-47.0) L 05/02/17 05:40 MCV 100.6 fl (78-100) H 05/02/17 05:40 MCH 34.0 pg (27-31) H 05/02/17 05:40 MCHC 33.8 g/dl (32-36) 05/02/17 05:40 RDW 16.3 % (11.5-14.0) H 05/02/17 05:40 Plt Count 274 K/mm3 (150-450) 05/02/17 05:40 MPV 10.9 fl (6.0-9.5) H 05/02/17 05:40 Immature Gran % (Auto) 1.00 % (0.001-0.429) H 05/02/17 05:40 Immature Gran # (Auto) 0.15 K/mm3 (0.000-0.0310) H 05/02/17 05:40 Neutrophils % 65.3 % (42-75.0) 05/02/17 05:40 Lymphocytes % 24.1 % (20-51) 05/02/17 05:40 Monocytes % 8.5 % (0.0-9) 05/02/17 05:40 Eosinophils % 0.6 % (0.0-3.0) 05/02/17 05:40 Basophils % 0.5 % (0.0-1.0) 05/02/17 05:40 Nucleated RBC % 0.0 k/mm3 (0-1) 05/02/17 05:40 Neutrophils # 9.7 K/mm3 (1.3-6.0) H 05/02/17 05:40 Lymphocytes # 3.6 k/mm3 (1.5-3.5) H 05/02/17 05:40 Monocytes # 1.3 k/mm3 (0.0-1.0) H 05/02/17 05:40 Eosinophils # 0.1 k/mm3 (0.0-0.7) 05/02/17 05:40 Absolute Basophils 0.1 k/mm3 (0.0-0.1) 05/02/17 05:40 Sodium 139 mmol/L (132-142) 05/02/17 05:40 Plasma Sodium 141 mmol/L (130-142) 05/02/17 05:40 Potassium 4.8 mmol/L (3.4-4.6) H 05/02/17 05:40 Chloride 104 mmol/L (97-106) 05/02/17 05:40 Carbon Dioxide 27.4 mmol/L (24-32.6) 05/02/17 05:40 Anion Gap 12.4 mmol/L (6.8-13.8) 05/02/17 05:40 BUN 25 mg/dL (3-23) H 05/02/17 05:40 Creatinine 1.83 mg/dL (0.4-1.4) H D 05/02/17 05:40 Est GFR (Non-Af Amer) 28 mL/min (60-130) L D 05/02/17 05:40 BUN/Creatinine Ratio 13.7 (9.0-21.6) 05/02/17 05:40 Random Glucose 248 mg/dL (70-110) H 05/02/17 05:40 Lactic Acid, Venous 1.7 mmol/L (0.4-1.9) 05/01/17 20:20 Calcium 8.4 mg/dL (7.9-10.9) 05/02/17 05:40 Calcium Adj for Albumin 9.0 mg/dL (8.4-10.2) 05/02/17 05:40 Total Bilirubin 0.5 mg/dL (0.0-1.1) 05/02/17 05:40 AST 15 U/L (0-48) 05/02/17 05:40 ALT 27 U/L (19-67) 05/02/17 05:40 Alkaline Phosphatase 121 U/L (50-170) 05/02/17 05:40 Troponin I Less than 0.017 ng/ml (0.00-0.10) 05/01/17 20:20 Total Protein 6.7 gm/dL (6.2-8.2) 05/02/17 05:40 Albumin 2.9 gm/dl (3.4-5.0) L 05/02/17 05:40 Lipase 155 U/L (73-393) 05/01/17 20:20 TSH 2.655 uIU/mL (0.358-3.74) 05/02/17 05:40 Urine Color Pale yellow 05/01/17 20:20 Urine Appearance Slightly cloudy 05/01/17 20:20 Urine pH 6.0 pH (5.0-7.0) 05/01/17 20:20 Ur Specific [place] 1.010 SP.GR. (1.005-1.010) 05/01/17 20:20 Urine Protein Negative mg/dL (NEGATIVE) 05/01/17 20:20 Urine Glucose (UA) Negative mg/dL (NEGATIVE) 10/15/17 20:20 Urine Ketones Negative mg/dL (NEGATIVE) 05/01/17 20:20 Urine Blood 5 /ul (NEGATIVE) H 05/01/17 20:20 Urine Nitrate Negative (NEGATIVE) 05/01/17 20:20 Urine Bilirubin Negative mg/dl (NEGATIVE) 05/01/17 20:20 Urine Urobilinogen Normal EU/dl (NORMAL) 05/01/17 20:20 Ur Leukocyte Esterase 100 /ul (NEGATIVE) H 05/01/17 20:20 Urine RBC None seen /hpf (0-5) 05/01/17 20:20 Urine WBC >50 /hpf (0-5) H 05/01/17 20:20 Ur Epithelial Cells 0-5 /hpf (0-5) 05/01/17 20:20 Urine Bacteria 2+ (NONE) H 05/01/17 20:20 Urine Culture Comments Culture to follow 05/01/17 20:20 Assessment/Plan - Narrative Narrative: IMPRESSION & PLAN: MONIQUE on CKD Stage 3 -Admit to Med-Surg, inpatient status. Patient will need to be inpatient for more than 2 midnights to allow for appropriate work-up and treatment of the patients MONIQUE. -Unknown etiology at this time but likely pre-renal given the improvement in kidney function following IVF hydration. -Bilateral renal ultrasound on 04/11/2017 showed no focal renal mass or hydronephrosis, relatively echogenic appearance of renal parenchyma suggestive of renal parenchymal disease. -Strict I&Os -Daily standing weight -Continue IVF hydration with NS @ 125cc/hr Bladder Abnormality -CT scan completed in the ED on admission shows "significant urinary bladder wall thickening and surrounding inflammatory changes suggesting severe cystitis. -Patient would benefit from Urology consultation for cystoscopy. Unfortunately, we do not have Urology services at [facility] until Tuesday, 2016. Call placed to [facility] to discuss possible transfer. -Continue IV Rocephin for now Hydronephrosis, Hydroureter -CT scan completed in the ED on admission shows "associated bilateral hydronephrosis and hydroureter." This is new since her renal ultrasound on 04/11 which did not show any evidence of hydronephrosis. -Possibly related to bladder abnormality. Again, patient would benefit from urology consultation. Possible UTI -Continue IV Rocephin for now -Nitrate negative. Patient may be colonized. Await final urine culture results and adjust antibiotics as necessary. -I do not agree with the admitting diagnosis of sepsis and I do not believe the patient is truly septic. Hypertensive Urgency -Restart home medications and monitor for improvement in BP Pulmonary Nodules -Plan is for patient to get a CT scan as an outpatient Hyperkalemia - Mild -Secondary to above -Continue to monitor for now. Repeat BMP in AM. -Hold home potassium MDS with history of Macrocytic Anemia -No signs of active bleeding. Patient transfused 2 Units of PRBCs on admission. -Patient follows with heme/onc, Dr. Hare. Peripheral smear on 04/24/2012 was unremarkable. BMB on 05/03/2012 showed early MDS. Given the patient's worsening kidney function and worsening anemia, one could consider further outpatient work-up with SPEP and UPEP for evaluation of possible multiple myeloma and/or repeat BMB. Patient is scheduled for routine follow-up with Dr. Hare in mid April 2017. CHRONIC STABLE MEDICAL CONDITIONS: Type 2 Diabetes Mellitus: Hold home medications. Monitor BG AC, HS and PRN. Medium dose correctional insulin TID with meals. Consistent carb diet. Anxiety and Depression: Continue home medications alprazolam PRN, Lexapro Hyperlipidemia: Hold home atorvastatin for now while working up MONIQUE Benign Essential Hypertension: Restart home antihypertensive medications including metoprolol and losartan. Monitor BP with goal BP less than 140/ 90mmHg. GERD: Continue home famotidine 20mg daily. Insomnia: Continue home trazodone. VTE ppx: Heparin, SCDs Code Status: DNR Disposition: Awaiting to hear back from [facility] for possible transfer. - Assessment/Plan (1) Hydronephrosis Problem: Acute (2) Hydroureter Problem: Acute (3) Hyperkalemia Problem: Acute (4) Hypertensive urgency Problem: Acute (5) Lesion of bladder Problem: Acute (6) UTI (urinary tract infection) Problem: Suspected (7) Pulmonary nodule Problem: Chronic (8) MONIQUE (acute kidney injury) Problem: Acute (9) Venous insufficiency (chronic) (peripheral) Problem: Chronic (10) Anemia in CKD (chronic kidney disease) Problem: Chronic (11) Anxiety and depression Problem: Chronic (12) Benign essential hypertension Problem: Chronic (13) CKD (chronic kidney disease) stage 3, GFR 30-59 ml/min Problem: Chronic (14) GERD (gastroesophageal reflux disease) Problem: Chronic (15) Hyperlipidemia Problem: Chronic (16) Insomnia Problem: Chronic (17) MDS (myelodysplastic syndrome) Problem: Chronic (18) Macrocytic anemia Problem: Chronic (19) Type 2 diabetes mellitus Problem: Chronic <Lamar Gonsales - Last Filed: 05/02/17 19:13> Chief Complaint - Chief Complaint Date of Service: 05/02/17 Time of Service: 00:30 Chief Complaint: Dizziness, lower back pain History of Present Illness: 81 years old WF adm to the hospital with reports of dizziness and weakness. pt stated while at home she felt dizzy walking from her mailbox. PMH significant for vertigo, hypertension, diabetes II, CKD stage III and UTI. 04/11/17 pt was adm for worsening kidney function. Prior to adm she was treated in the ER for UTI 03/31/17. pt a poor historian and additional information obtained from previous records and ER notes.In ER Bun/Cre--->28/2.38 levels better than previous visit. uncontrolled hypertension SBP 200/98 had metoprolol 25mg and then cardizem 10mg given in ER. An additional dose metoprolol 25mg x1 now. From the nurses pt was complaining of abdominal pain, back pain and her urine was blood tint. pt however didn't provide that information. 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 Patient History - Cancer: No Hx of Cancer Patient History - Surgical Procedures: Cataracts, Cholecystectomy, Colonoscopy, Hysterectomy, Other Patient History - Other: None - Family History Father Family History - Medical: , Other Family History - Cardiac/Respiratory: No pertinent hx Family History - Cancer: No pertinent family hx Brother Family History - Medical:  Family History - Cardiac/Respiratory: No pertinent hx Family History - Cancer: History Unknown Mother Family History - Medical: , Alzheimer's Disease Family History - Cardiac/Respiratory: History Unknown Family History - Cancer: History Unknown - Social History Living Situations: other Abuse History: No History of abuse Psych History: No pertinent hx - Immunizations Immunizations Up to Date: No Hx Pneumococcal Vaccination: Yes History of Influenza Vaccine: No Review Of Systems (GEN) - Review of Systems Generalized/Overall Review: Present: Weakness EENTM: Present: No Symptoms Reported Respiratory: Present: No Symptoms Reported Cardiac: Present: No Symptoms Reported Abdominal: Present: No Symptoms Reported Genitourinary: Present: Urgency, Incontinent Musculoskeletal: Present: Back Pain Neurological: Present: No Symptoms Reported Skin: Present: Lumps, Other - peripheral edema Endocrine: Present: No Symptoms Reported Misc: All systems neg except as marked Exam - Exam Vital Signs: Vital Signs - Last Taken Temp 36.8 C 05/01/17 22:35 Pulse 114 H 05/01/17 23:55 Resp 18 05/01/17 23:55 BP 186/94 05/01/17 23:55 Pulse Ox 94 05/01/17 23:55 Constitutional: Present: Alert, Oriented x3, Cooperative, No distress ENT Exam: Present: hard of hearing Eye Exam: bilateral eye: normal inspection Neck: Present: full range of motion Back Exam: Present: normal inspection Breasts: Present: Exam deferred Respiratory: Present: chest non-tender, lungs clear, normal breath sounds Cardiovascular/Chest: Present: normal peripheral pulses, tachycardia, edema Peripheral Pulses: dorsalis-pedis (R): 2+, dorsalis-pedis (L): 2+ Abdomen: Present: Normal bowel sounds, soft, nontender, nondistended /Rectal: Present: Exam deferred Extremity: Present: lower extremity edema, pedal edema, slow capillary refill, swelling, other - peripheral edema Skin Exam: Present: normal color, warm/dry Neurologic: Present: oriented x 3 Appearance: Present: appropriate appearance, appropriate insight Eye contact: Present: cooperative, good eye contact Thoughts: Present: normal thought pattern Diagnostic Studies: Laboratory Results WBC 15.4 K/mm3 (4.0-10.5) H 05/01/17 20:20 RBC 3.16 M/mm3 (4.2-5.4) L 05/01/17 20:20 Hgb 10.8 gm/dL (12.5-16.0) L 05/01/17 20:20 Hct 31.7 % (37.0-47.0) L 05/01/17 20:20 MCV 100.3 fl (78-100) H 05/01/17 20:20 MCH 34.2 pg (27-31) H 05/01/17 20:20 MCHC 34.1 g/dl (32-36) 05/01/17 20:20 RDW 16.4 % (11.5-14.0) H 05/01/17 20:20 Plt Count 260 K/mm3 (150-450) 05/01/17 20:20 MPV 10.5 fl (6.0-9.5) H 05/01/17 20:20 Immature Gran % (Auto) 1.10 % (0.001-0.429) H 05/01/17 20:20 Immature Gran # (Auto) 0.17 K/mm3 (0.000-0.0310) H 05/01/17 20:20 Neutrophils % 59.7 % (42-75.0) 05/01/17 20:20 Lymphocytes % 27.5 % (20-51) 05/01/17 20:20 Monocytes % 8.9 % (0.0-9) 05/01/17 20:20 Eosinophils % 2.3 % (0.0-3.0) 05/01/17 20:20 Basophils % 0.5 % (0.0-1.0) 05/01/17 20:20 Nucleated RBC % 0.0 k/mm3 (0-1) 05/01/17 20:20 Neutrophils # 9.2 K/mm3 (1.3-6.0) H 05/01/17 20:20 Lymphocytes # 4.2 k/mm3 (1.5-3.5) H 05/01/17 20:20 Monocytes # 1.4 k/mm3 (0.0-1.0) H 05/01/17 20:20 Eosinophils # 0.4 k/mm3 (0.0-0.7) 05/01/17 20:20 Absolute Basophils 0.1 k/mm3 (0.0-0.1) 05/01/17 20:20 Sodium 137 mmol/L (132-142) 05/01/17 20:20 Plasma Sodium 139 mmol/L (130-142) 05/01/17 20:20 Potassium 4.5 mmol/L (3.4-4.6) 05/01/17 20:20 Chloride 102 mmol/L (97-106) 05/01/17 20:20 Carbon Dioxide 27.0 mmol/L (24-32.6) 05/01/17 20:20 Anion Gap 12.5 mmol/L (6.8-13.8) 05/01/17 20:20 BUN 28 mg/dL (3-23) H 05/01/17 20:20 Creatinine 2.38 mg/dL (0.4-1.4) H D 05/01/17 20:20 Est GFR (Non-Af Amer) 21 mL/min (60-130) L D 05/01/17 20:20 BUN/Creatinine Ratio 11.8 (9.0-21.6) 05/01/17 20:20 Random Glucose 214 mg/dL (70-110) H 05/01/17 20:20 Lactic Acid, Venous 1.7 mmol/L (0.4-1.9) 05/01/17 20:20 Calcium 9.1 mg/dL (7.9-10.9) 05/01/17 20:20 Calcium Adj for Albumin 9.3 mg/dL (8.4-10.2) 05/01/17 20:20 Total Bilirubin 0.4 mg/dL (0.0-1.1) 05/01/17 20:20 AST 14 U/L (0-48) 05/01/17 20:20 ALT 27 U/L (19-67) 05/01/17 20:20 Alkaline Phosphatase 143 U/L (50-170) 05/01/17 20:20 Troponin I Less than 0.017 ng/ml (0.00-0.10) 05/01/17 20:20 Total Protein 7.2 gm/dL (6.2-8.2) 05/01/17 20:20 Albumin 3.3 gm/dl (3.4-5.0) L 05/01/17 20:20 Lipase 155 U/L (73-393) 05/01/17 20:20 TSH 4.586 uIU/mL (0.358-3.74) H 05/01/17 20:20 Urine Color Pale yellow 05/01/17 20:20 Urine Appearance Slightly cloudy 05/01/17 20:20 Urine pH 6.0 pH (5.0-7.0) 05/01/17 20:20 Ur Specific [place] 1.010 SP.GR. (1.005-1.010) 05/01/17 20:20 Urine Protein Negative mg/dL (NEGATIVE) 05/01/17 20:20 Urine Glucose (UA) Negative mg/dL (NEGATIVE) 05/01/17 20:20 Urine Ketones Negative mg/dL (NEGATIVE) 05/01/17 20:20 Urine Blood 5 /ul (NEGATIVE) H 05/01/17 20:20 Urine Nitrate Negative (NEGATIVE) 05/01/17 20:20 Urine Bilirubin Negative mg/dl (NEGATIVE) 05/01/17 20:20 Urine Urobilinogen Normal EU/dl (NORMAL) 05/01/17 20:20 Ur Leukocyte Esterase 100 /ul (NEGATIVE) H 05/01/17 20:20 Urine RBC None seen /hpf (0-5) 05/01/17 20:20 Urine WBC >50 /hpf (0-5) H 05/01/17 20:20 Ur Epithelial Cells 0-5 /hpf (0-5) 05/01/17 20:20 Urine Bacteria 2+ (NONE) H 05/01/17 20:20 Urine Culture Comments Culture to follow 05/01/17 20:20 05/02/17 CT ABD/ pel: There are numerous bilateral pulmonary nodules worrisome for me metastatic disease. 04/11/17 Bilateral renal ultrasound: No focal renal mass or hydronephrosis. Relatively echogenic appearance of renal parenchyma suggestive renal parenchymal disease. Assessment/Plan - Narrative Narrative: Sepsis secondary to UTI seen on urinalysis Kyler dewitt in ER - Assessment/Plan (1) Sepsis Problem: Acute (2) UTI (urinary tract infection) Problem: Suspected (3) Uncontrolled hypertension Problem: Acute (4) MONIQUE (acute kidney injury) Problem: Acute (5) Pulmonary nodule Problem: Chronic (6) GERD (gastroesophageal reflux disease) Problem: Chronic (7) Hyperlipidemia Problem: Chronic (8) Insomnia Problem: Chronic (9) MDS (myelodysplastic syndrome) Problem: Chronic (10) Macrocytic anemia Problem: Chronic
[2017-05-02] MEDS: NORMAL SALINE 1,000 ML IV PRN ×3 (03:01→19:09)
[2017-05-02] MEDS: METOPROLOL TARTRATE 25 MG TABLET PO SCH ×5 (03:01→22:38)
[2017-05-02 06:07] LABS: Hematocrit 33.1 % (37.0-47.0); Hemoglobin 11.2 gm/dL (12.5-16.0); Mean Cell Volume 100.6 fl (78-100); Mean Corpuscular Hgb Conc 33.8 g/dl (32-36); Mean Platelet Volume 10.9 fl (6.0-9.5); Neutrophil # 9.7 K/mm3 (1.3-6.0); Neutrophil % 65.3 % (42-75.0); Platelet Count 274 K/mm3 (150-450); Red Blood Count 3.29 M/mm3 (4.2-5.4); Red Cell Distribution Width 16.3 % (11.5-14.0); White Blood Count 14.9 K/mm3 (4.0-10.5)
[2017-05-02 06:35] LABS: Albumin * 2.9 gm/dl (3.4-5.0); Anion Gap 12.4 mmol/L (6.8-13.8); BUN/Creatinine Ratio 13.7 (9.0-21.6); Bilirubin, Total 0.5 mg/dL (0.0-1.1); Calcium * 8.4 mg/dL (7.9-10.9); Carbon Dioxide 27.4 mmol/L (24-32.6); Potassium 4.8 mmol/L (3.4-4.6); TSH * 2.655 uIU/mL (0.358-3.74); Total Protein 6.7 gm/dL (6.2-8.2)
[2017-05-02] MEDS: CALCIUM CARBONATE/VITAMIN D3 1 TAB TABLET PO SCH (10:25)
[2017-05-02] MEDS: POLYVINYL ALCOHOL 150 DROP BTL OP SCH ×2 (10:25→21:54)
[2017-05-02] MEDS: LOSARTAN POTASSIUM 50 MG TABLET PO SCH (10:26)
[2017-05-02] MEDS: ESCITALOPRAM OXALATE 10 MG TAB PO SCH (10:27)
[2017-05-02] MEDS: HEPARIN SODIUM,PORCINE 5,000 UNITS/ML VIAL SC SCH (10:27)
[2017-05-02] MEDS: FAMOTIDINE 20 MG TABLET PO SCH (10:37)
[2017-05-02] MEDS: BETA-CAROTENE(A) W-C , E/MIN 1 TAB TABLET PO SCH (10:37)
[2017-05-02] MEDS: INSULIN LISPRO 100 UNITS/ML VIAL SC SCH ×2 (11:06→17:30)
[2017-05-02] MEDS: traZODone HCL 50 MG TABLET PO SCH (21:56)
[2017-05-02] MEDS: ROSUVASTATIN CALCIUM 10 MG TABLET PO SCH (21:56)
[2017-05-02] MEDS: ACETAMINOPHEN 325 MG TABLET PO PRN (22:03)
[2017-05-03] MEDS: HEPARIN SODIUM,PORCINE 5,000 UNITS/ML VIAL SC SCH ×3 (02:40→21:07)
[2017-05-03] MEDS: NORMAL SALINE 1,000 ML IV PRN ×2 (04:04→11:52)
[2017-05-03] MEDS: INSULIN LISPRO 100 UNITS/ML VIAL SC SCH ×3 (07:53→16:58)
[2017-05-03 09:29] LABS: Hematocrit 31.9 % (37.0-47.0); Hemoglobin 10.6 gm/dL (12.5-16.0); Mean Cell Volume 102.6 fl (78-100); Mean Corpuscular Hemoglobin 34.1 pg (27-31); Mean Corpuscular Hgb Conc 33.2 g/dl (32-36); Mean Platelet Volume 10.9 fl (6.0-9.5); Neutrophil # 7.4 K/mm3 (1.3-6.0); Neutrophil % 64.5 % (42-75.0); Platelet Count 227 K/mm3 (150-450); Red Blood Count 3.11 M/mm3 (4.2-5.4); Red Cell Distribution Width 16.6 % (11.5-14.0); White Blood Count 11.5 K/mm3 (4.0-10.5)
[2017-05-03] MEDS: BETA-CAROTENE(A) W-C , E/MIN 1 TAB TABLET PO SCH (09:32)
[2017-05-03] MEDS: CALCIUM CARBONATE/VITAMIN D3 1 TAB TABLET PO SCH (09:32)
[2017-05-03] MEDS: FAMOTIDINE 20 MG TABLET PO SCH (09:32)
[2017-05-03] MEDS: ESCITALOPRAM OXALATE 10 MG TAB PO SCH (09:32)
[2017-05-03] MEDS: LOSARTAN POTASSIUM 50 MG TABLET PO SCH (09:32)
[2017-05-03] MEDS: METOPROLOL TARTRATE 25 MG TABLET PO SCH ×2 (09:33→20:31)
[2017-05-03] MEDS: POLYVINYL ALCOHOL 150 DROP BTL OP SCH ×2 (09:33→20:29)
[2017-05-03 09:41] LABS: Anion Gap 13.8 mmol/L (6.8-13.8); BUN/Creatinine Ratio 14.5 (9.0-21.6); Calcium * 8.1 mg/dL (7.9-10.9); Carbon Dioxide 26.3 mmol/L (24-32.6); Estimated Creat Clear 23.4; Potassium 4.1 mmol/L (3.4-4.6)
[2017-05-03] MEDS: LIDOCAINE 1 PATCH ADH..PATCH TP SCH (10:19)
[2017-05-03] MEDS: INSULIN DETEMIR 100 UNITS/ML VIAL SC SCH (13:26)
[2017-05-03] MEDS: ACETAMINOPHEN 325 MG TABLET PO PRN (19:23)
[2017-05-03] MEDS: hydrALAZINE HCL 20 MG/ML VIAL IV PRN (19:25)
[2017-05-03] MEDS: ROSUVASTATIN CALCIUM 10 MG TABLET PO SCH (20:30)
[2017-05-03] MEDS: traZODone HCL 50 MG TABLET PO SCH (20:30)
[2017-05-04] MEDS: INSULIN DETEMIR 100 UNITS/ML VIAL SC SCH ×2 (01:07→12:16)
[2017-05-04] MEDS: hydrALAZINE HCL 20 MG/ML VIAL IV PRN ×2 (06:55→19:04)
[2017-05-04] MEDS: INSULIN LISPRO 100 UNITS/ML VIAL SC SCH ×3 (06:57→16:49)
[2017-05-04] MEDS: NORMAL SALINE 1,000 ML IV PRN (07:44)
--- NOTE | 2017-05-04 08:18 | PN ---
Subjective - Date and Time Seen Date: 05/03/17 Time: 09:15 Subjective Narrative: Patient seen and examined at bedside. No acute issues overnight. Patient states that she is feeling much better and that if it weren't for her chronic back pain , she would feel like running a marathon. Objective - Review of Systems Generalized/Overall Review: Reports: No Symptoms Reported EENTM: Reports: No Symptoms Reported Respiratory: Reports: No Symptoms Reported Cardiac: Reports: No Symptoms Reported Abdominal: Reports: No Symptoms Reported Genitourinary Symptoms: Reports: No Symptoms Reported Musculoskeletal Complaints: Reports: Back Pain Neurological: Reports: No Symptoms Reported Skin: Reports: No Symptoms Reported Endocrine: Reports: No Symptoms Reported Misc: All systems neg except as marked - Vitals Vitals: Last Vital Signs Temp 36.8 C 05/04/17 07:44 Pulse 116 H 05/04/17 07:44 Resp 18 05/04/17 07:44 BP 173/93 05/04/17 07:44 Pulse Ox 97 05/04/17 07:44 - Abnormal Lab Findings Abnormal Lab Findings: Abnormal Lab Results 05/03/17 05/03/17 Range/Units 09:25 09:25 WBC 11.5 H D (4.0-10.5) K/mm3 RBC 3.11 L (4.2-5.4) M/mm3 Hgb 10.6 L (12.5-16.0) gm/dL Hct 31.9 L (37.0-47.0) % MCV 102.6 H (78-100) fl MCH 34.1 H (27-31) pg RDW 16.6 H (11.5-14.0) % MPV 10.9 H (6.0-9.5) fl Immature Gran % (Auto) 1.00 H (0.001-0.429) % Immature Gran # (Auto) 0.12 H (0.000-0.0310) K/mm3 Neutrophils # 7.4 H (1.3-6.0) K/mm3 Plasma Sodium 144 H (130-142) mmol/L Est GFR (Non-Af Amer) 39 L D (60-130) mL/min Random Glucose 322 H (70-110) mg/dL - Exam Constitutional: Present: Alert, Oriented x3, Cooperative, Well developed, Well nourished, No distress, Elderly, Obese ENT Exam: Present: hard of hearing, moist mucous membranes Respiratory: Present: lungs clear, normal breath sounds, no respiratory distress , no accessory muscle use Cardiovascular/Chest: Present: regular rate, rhythm, edema Abdomen: Present: soft, nontender, nondistended, no rebound tenderness Extremity: Present: lower extremity edema, other - chronic venous stasis dermatitis skin changes Skin Exam: Present: warm/dry, other - chronic venous stasis skin changes to bilateral lower extremities Neurologic: Present: alert, normal mood/affect, oriented x 3 Appearance: Present: appropriate appearance, appropriate insight, neat Eye contact: Present: cooperative, good eye contact, normal speech Thoughts: Present: normal thought pattern, no apparent hallucination Assessment/Plan Plan Narrative: IMPRESSION & PLAN: MONIQUE on CKD Stage 3 - Improved -Admit to Med-Surg, inpatient status. Patient will need to be inpatient for more than 2 midnights to allow for appropriate work-up and treatment of the patients MONIQUE. -Unknown etiology at this time but likely pre-renal given the improvement in kidney function following IVF hydration. -Bilateral renal ultrasound on 04/11/2017 showed no focal renal mass or hydronephrosis, relatively echogenic appearance of renal parenchyma suggestive of renal parenchymal disease. -Strict I&Os -Daily standing weight -Continue IVF hydration with NS @ 125cc/hr Bladder Abnormality -CT scan completed in the ED on admission shows "significant urinary bladder wall thickening and surrounding inflammatory changes suggesting severe cystitis. -Patient would benefit from Urology consultation for cystoscopy. Case discussed with Urologist, Dr. Hemphill who reviewed the patient's case and the plan is for a cystoscopy on Tuesday05/06/2017. -Continue IV Rocephin Hydronephrosis, Hydroureter -CT scan completed in the ED on admission shows "associated bilateral hydronephrosis and hydroureter." This is new since her renal ultrasound on 04/11 which did not show any evidence of hydronephrosis. -Possibly related to bladder abnormality. Patient scheduled for OR with Dr. Hemphill on 05/06/2017. Possible UTI -Continue IV Rocephin for now -Nitrate negative. Patient may be colonized. Await final urine C&S results. -Of note, patient was originally admitted with the diagnosis of sepsis. I do not agree with the admitting diagnosis of sepsis and I do not believe the patient is truly septic. Hypertensive Urgency -Restart home medications and monitor for improvement in BP Right Flank Hematoma -Secondary to a fall a few weeks ago where patient hit her right side on the ledge of her bathroom -Continue to monitor but no signs of active bleeding or enlarging hematoma Pulmonary Nodules -Plan is for patient to get a CT scan as an outpatient Hyperkalemia - Mild -Secondary to above -Continue to monitor for now. Repeat BMP in AM. -Hold home potassium MDS with history of Macrocytic Anemia -No signs of active bleeding. Patient transfused 2 Units of PRBCs on admission. -Patient follows with heme/onc, Dr. Hare. Peripheral smear on 04/24/2012 was unremarkable. BMB on 05/03/2012 showed early MDS. Given the patient's worsening kidney function and worsening anemia, one could consider further outpatient work-up with SPEP and UPEP for evaluation of possible multiple myeloma and/or repeat BMB. Patient is scheduled for routine follow-up with Dr. Hare in mid April 2017. CHRONIC STABLE MEDICAL CONDITIONS: Type 2 Diabetes Mellitus: Hold home medications. Monitor BG AC, HS and PRN. Medium dose correctional insulin TID with meals. Consistent carb diet. Anxiety and Depression: Continue home medications alprazolam PRN, Lexapro Hyperlipidemia: Hold home atorvastatin for now while working up MONIQUE Benign Essential Hypertension: Restart home antihypertensive medications including metoprolol and losartan. Monitor BP with goal BP less than 140/ 90mmHg. GERD: Continue home famotidine 20mg daily. Insomnia: Continue home trazodone. VTE ppx: Heparin, SCDs Code Status: DNR Disposition: Plan is for patient to remain inpatient and be discharged 05/06/2017, just prior to her urologic procedure with Dr. Hemphill and the she will return home following this procedure. - Problems/Diagnosis (1) Hydronephrosis Problem: Acute (2) Hydroureter Problem: Acute (3) Hyperkalemia Problem: Acute (4) Hypertensive urgency Problem: Acute (5) Lesion of bladder Problem: Acute (6) UTI (urinary tract infection) Problem: Suspected (7) Pulmonary nodule Problem: Chronic (8) MONIQUE (acute kidney injury) Problem: Acute (9) Venous insufficiency (chronic) (peripheral) Problem: Chronic (10) Anemia in CKD (chronic kidney disease) Problem: Chronic (11) Anxiety and depression Problem: Chronic (12) Benign essential hypertension Problem: Chronic (13) CKD (chronic kidney disease) stage 3, GFR 30-59 ml/min Problem: Chronic (14) GERD (gastroesophageal reflux disease) Problem: Chronic (15) Hyperlipidemia Problem: Chronic (16) Insomnia Problem: Chronic (17) MDS (myelodysplastic syndrome) Problem: Chronic (18) Macrocytic anemia Problem: Chronic (19) Type 2 diabetes mellitus Problem: Chronic
--- NOTE | 2017-05-04 08:19 | PN ---
Subjective - Date and Time Seen Date: 05/04/17 Time: 08:18 Subjective Narrative: Patient seen and examined at bedside. No acute issues overnight. Patient continues to have back pain but she feels it may be a bit better with the lidocaine patches. She denies any new issues or concerns this AM. Objective - Review of Systems Generalized/Overall Review: Reports: No Symptoms Reported EENTM: Reports: No Symptoms Reported Respiratory: Reports: No Symptoms Reported Cardiac: Reports: No Symptoms Reported Abdominal: Reports: No Symptoms Reported Genitourinary Symptoms: Reports: No Symptoms Reported Musculoskeletal Complaints: Reports: Back Pain Neurological: Reports: No Symptoms Reported Skin: Reports: No Symptoms Reported Endocrine: Reports: No Symptoms Reported Misc: All systems neg except as marked - Vitals Vitals: Last Vital Signs Temp 36.8 C 05/04/17 07:44 Pulse 116 H 05/04/17 07:44 Resp 18 05/04/17 07:44 BP 173/93 05/04/17 07:44 Pulse Ox 97 05/04/17 07:44 - Abnormal Lab Findings Abnormal Lab Findings: Abnormal Lab Results 05/03/17 05/03/17 Range/Units 09:25 09:25 WBC 11.5 H D (4.0-10.5) K/mm3 RBC 3.11 L (4.2-5.4) M/mm3 Hgb 10.6 L (12.5-16.0) gm/dL Hct 31.9 L (37.0-47.0) % MCV 102.6 H (78-100) fl MCH 34.1 H (27-31) pg RDW 16.6 H (11.5-14.0) % MPV 10.9 H (6.0-9.5) fl Immature Gran % (Auto) 1.00 H (0.001-0.429) % Immature Gran # (Auto) 0.12 H (0.000-0.0310) K/mm3 Neutrophils # 7.4 H (1.3-6.0) K/mm3 Plasma Sodium 144 H (130-142) mmol/L Est GFR (Non-Af Amer) 39 L D (60-130) mL/min Random Glucose 322 H (70-110) mg/dL - Exam Constitutional: Present: Alert, Oriented x3, Cooperative, Well developed, Well nourished, No distress, Elderly, Obese ENT Exam: Present: hard of hearing, moist mucous membranes Respiratory: Present: lungs clear, normal breath sounds, no respiratory distress , no accessory muscle use Cardiovascular/Chest: Present: regular rate, rhythm, edema Abdomen: Present: soft, nontender, nondistended Extremity: Present: lower extremity edema Skin Exam: Present: other - chronic venous stasis skin changes to bilateral lower extremities Neurologic: Present: alert, normal mood/affect, oriented x 3 Appearance: Present: appropriate appearance, appropriate insight, neat Eye contact: Present: cooperative, good eye contact, normal speech Thoughts: Present: normal thought pattern, no apparent hallucination Assessment/Plan Plan Narrative: IMPRESSION & PLAN: MONIQUE on CKD Stage 3 - Improved -Admit to Med-Surg, inpatient status. Patient will need to be inpatient for more than 2 midnights to allow for appropriate work-up and treatment of the patients MONIQUE. -Unknown etiology at this time but likely pre-renal given the improvement in kidney function following IVF hydration. -Bilateral renal ultrasound on 04/11/2017 showed no focal renal mass or hydronephrosis, relatively echogenic appearance of renal parenchyma suggestive of renal parenchymal disease. -Strict I&Os -Daily standing weight -Decrease IVF hydration to NS @ 30cc/hr -Recheck BMP in AM Bladder Abnormality -CT scan completed in the ED on admission shows "significant urinary bladder wall thickening and surrounding inflammatory changes suggesting severe cystitis. -Patient would benefit from Urology consultation for cystoscopy. Case discussed with Urologist, Dr. Hemphill who reviewed the patient's case and the plan is for a cystoscopy on Tuesday05/06/2017. -Continue IV Rocephin Hydronephrosis, Hydroureter -CT scan completed in the ED on admission shows "associated bilateral hydronephrosis and hydroureter." This is new since her renal ultrasound on 04/11 which did not show any evidence of hydronephrosis. -Possibly related to bladder abnormality. Patient scheduled for OR with Dr. Hemphill on 05/06/2017. Possible UTI -Continue IV Rocephin -Nitrate negative. Patient may be colonized. -Final urine culture result growing strep agalactiae group B. Although not specifically tested against Rocephin, group B strep is usually sensitive to Rocephin so no change in antibiotics at this time. -Of note, patient was originally admitted with the diagnosis of sepsis. I do not agree with the admitting diagnosis of sepsis and I do not believe the patient is truly septic. Hypertensive Urgency -Restart home lasix 40mg daily -Increase home losartan dose. Give 100mg X 1 today and then starting 2016 give 50mg BID. -Start HCTZ 25mg PO daily -Continue home metoprolol tartrate 25mg PO BID -Continue to monitor BP and adjust anti-hypertensive regimen as necessary. Goal BP is less than 140/90mmHg. -Monitor BMP closely, specifically creatinine, due to changes in medications. Check BMP in AM. Right Flank Hematoma -Secondary to a fall a few weeks ago where patient hit her right side on the ledge of her bathroom -Continue to monitor but no signs of active bleeding or enlarging hematoma -Continue lidocaine patch Pulmonary Nodules -Plan is for patient to get a CT scan as an outpatient Hyperkalemia - Resolved -Secondary to above -Continue to monitor for now. Repeat BMP in AM. -Hold home potassium MDS with history of Macrocytic Anemia -No signs of active bleeding. Patient transfused 2 Units of PRBCs on admission. -Patient follows with heme/onc, Dr. Hare. Peripheral smear on 04/24/2012 was unremarkable. BMB on 05/03/2012 showed early MDS. Given the patient's worsening kidney function and worsening anemia, one could consider further outpatient work-up with SPEP and UPEP for evaluation of possible multiple myeloma and/or repeat BMB. Patient is scheduled for routine follow-up with Dr. Hare in mid April 2017. CHRONIC STABLE MEDICAL CONDITIONS: Type 2 Diabetes Mellitus: Hold home medications. Monitor BG AC, HS and PRN. Levemir 8 Units Q12H. Medium dose correctional insulin TID with meals. Consistent carb diet. Anxiety and Depression: Continue home medications alprazolam PRN, Lexapro Hyperlipidemia: Continue home statin Benign Essential Hypertension: Continue to monitor BP with goal BP less than 140 /90mmHg. GERD: Continue home famotidine 20mg daily. Insomnia: Continue home trazodone. VTE ppx: Heparin, SCDs Code Status: DNR Disposition: Plan is for the patient to remain inpatient and be discharged 05/06/2017, just prior to her urologic procedure with Dr. Hemphill and the she will return home following this procedure. - Problems/Diagnosis (1) Hydronephrosis Problem: Acute (2) Hydroureter Problem: Acute (3) Hyperkalemia Problem: Acute (4) Hypertensive urgency Problem: Acute (5) Lesion of bladder Problem: Acute (6) UTI (urinary tract infection) Problem: Suspected (7) Pulmonary nodule Problem: Chronic (8) MONIQUE (acute kidney injury) Problem: Acute (9) Venous insufficiency (chronic) (peripheral) Problem: Chronic (10) Anemia in CKD (chronic kidney disease) Problem: Chronic (11) Anxiety and depression Problem: Chronic (12) Benign essential hypertension Problem: Chronic (13) CKD (chronic kidney disease) stage 3, GFR 30-59 ml/min Problem: Chronic (14) GERD (gastroesophageal reflux disease) Problem: Chronic (15) Hyperlipidemia Problem: Chronic (16) Insomnia Problem: Chronic (17) MDS (myelodysplastic syndrome) Problem: Chronic (18) Macrocytic anemia Problem: Chronic (19) Type 2 diabetes mellitus Problem: Chronic
[2017-05-04] MEDS ORDERED: LOSARTAN POTASSIUM 50 MG TABLET PO SCH (08:27)
[2017-05-04] MEDS: HYDROCHLOROTHIAZIDE 25 MG TABLET PO SCH ×2 (09:58→10:04)
[2017-05-04] MEDS: CALCIUM CARBONATE/VITAMIN D3 1 TAB TABLET PO SCH (10:03)
[2017-05-04] MEDS: METOPROLOL TARTRATE 25 MG TABLET PO SCH ×2 (10:03→21:08)
[2017-05-04] MEDS: LIDOCAINE 1 PATCH ADH..PATCH TP SCH (10:03)
[2017-05-04] MEDS: BETA-CAROTENE(A) W-C , E/MIN 1 TAB TABLET PO SCH (10:03)
[2017-05-04] MEDS: ESCITALOPRAM OXALATE 10 MG TAB PO SCH (10:05)
[2017-05-04] MEDS: FAMOTIDINE 20 MG TABLET PO SCH (10:05)
[2017-05-04] MEDS: POLYVINYL ALCOHOL 150 DROP BTL OP SCH ×2 (10:05→21:07)
[2017-05-04] MEDS: HEPARIN SODIUM,PORCINE 5,000 UNITS/ML VIAL SC SCH ×2 (10:06→21:08)
[2017-05-04] MEDS: FUROSEMIDE 40 MG TABLET PO SCH (14:40)
[2017-05-04] MEDS: ACETAMINOPHEN 325 MG TABLET PO PRN (21:06)
[2017-05-04] MEDS: ROSUVASTATIN CALCIUM 10 MG TABLET PO SCH (21:07)
[2017-05-04] MEDS: traZODone HCL 50 MG TABLET PO SCH (21:08)
[2017-05-05] MEDS: INSULIN DETEMIR 100 UNITS/ML VIAL SC SCH ×2 (01:45→12:34)
[2017-05-05 06:09] LABS: Hematocrit 27.7 % (37.0-47.0); Hemoglobin 9.6 gm/dL (12.5-16.0); Mean Cell Volume 99.3 fl (78-100); Mean Corpuscular Hemoglobin 34.4 pg (27-31); Mean Corpuscular Hgb Conc 34.7 g/dl (32-36); Platelet Count 212 K/mm3 (150-450); Red Blood Count 2.79 M/mm3 (4.2-5.4); Red Cell Distribution Width 16.5 % (11.5-14.0); White Blood Count 14.6 K/mm3 (4.0-10.5)
[2017-05-05 06:16] LABS: Anion Gap 10.2 mmol/L (6.8-13.8); BUN/Creatinine Ratio 14.4 (9.0-21.6); Calcium * 8.3 mg/dL (7.9-10.9); Estimated Creat Clear 23.2; Potassium 3.2 mmol/L (3.4-4.6)
[2017-05-05] MEDS: INSULIN LISPRO 100 UNITS/ML VIAL SC SCH ×3 (06:39→16:49)
[2017-05-05] MEDS: CALCIUM CARBONATE/VITAMIN D3 1 TAB TABLET PO SCH (08:44)
[2017-05-05] MEDS: BETA-CAROTENE(A) W-C , E/MIN 1 TAB TABLET PO SCH (08:44)
[2017-05-05] MEDS: ESCITALOPRAM OXALATE 10 MG TAB PO SCH (08:45)
[2017-05-05] MEDS: FAMOTIDINE 20 MG TABLET PO SCH (08:46)
[2017-05-05] MEDS: POLYVINYL ALCOHOL 150 DROP BTL OP SCH ×2 (08:47→21:32)
[2017-05-05] MEDS: LOSARTAN POTASSIUM 50 MG TABLET PO SCH ×2 (08:48→21:32)
[2017-05-05] MEDS: FUROSEMIDE 40 MG TABLET PO SCH (08:56)
[2017-05-05] MEDS: METOPROLOL TARTRATE 25 MG TABLET PO SCH ×2 (09:01→21:38)
[2017-05-05] MEDS: LIDOCAINE 1 PATCH ADH..PATCH TP SCH (09:02)
[2017-05-05] MEDS: HEPARIN SODIUM,PORCINE 5,000 UNITS/ML VIAL SC SCH ×2 (09:05→21:39)
[2017-05-05] MEDS: POTASSIUM CHLORIDE 10 MEQ TABLET.SA PO SCH (10:09)
[2017-05-05] MEDS: hydrALAZINE HCL 20 MG/ML VIAL IV PRN (10:35)
--- NOTE | 2017-05-05 11:05 | PN ---
Subjective - Date and Time Seen Date: 05/05/17 Time: 09:00 Subjective Narrative: Patient seen and examined at bedside. No acute issues overnight. Patient continues to have back pain but she feels it may be a bit better with the lidocaine patches. She denies any new issues or concerns this AM. Objective - Review of Systems Generalized/Overall Review: Reports: Weakness - generalized, Fatigue EENTM: Reports: No Symptoms Reported Respiratory: Reports: No Symptoms Reported Cardiac: Reports: Edema - chronic Abdominal: Reports: No Symptoms Reported Genitourinary Symptoms: Reports: No Symptoms Reported Musculoskeletal Complaints: Reports: Back Pain Neurological: Reports: No Symptoms Reported Skin: Reports: No Symptoms Reported Endocrine: Reports: No Symptoms Reported Misc: All systems neg except as marked - Vitals Vitals: Last Vital Signs Temp 36.8 C 05/05/17 10:36 Pulse 106 H 05/05/17 10:36 Resp 18 05/05/17 10:36 BP 179/85 05/05/17 10:36 Pulse Ox 94 05/05/17 10:36 - Abnormal Lab Findings Abnormal Lab Findings: Abnormal Lab Results 05/05/17 05/05/17 Range/Units 05:40 05:40 WBC 14.6 H D (4.0-10.5) K/mm3 RBC 2.79 L (4.2-5.4) M/mm3 Hgb 9.6 L (12.5-16.0) gm/dL Hct 27.7 L (37.0-47.0) % MCH 34.4 H (27-31) pg RDW 16.5 H (11.5-14.0) % MPV 11.0 H (6.0-9.5) fl Potassium 3.2 L D (3.4-4.6) mmol/L Est GFR (Non-Af Amer) 39 L (60-130) mL/min Random Glucose 178 H D (70-110) mg/dL - Exam Constitutional: Present: Alert, Oriented x3, Cooperative, Well developed, Well nourished, No distress, Elderly, Obese ENT Exam: Present: hard of hearing, moist mucous membranes Respiratory: Present: lungs clear, normal breath sounds, no respiratory distress , no accessory muscle use Cardiovascular/Chest: Present: regular rate, rhythm, edema Abdomen: Present: soft, nontender, nondistended Extremity: Present: pedal edema Skin Exam: Present: warm/dry Neurologic: Present: alert, normal mood/affect, oriented x 3 Appearance: Present: appropriate appearance, appropriate insight, neat Eye contact: Present: cooperative, good eye contact, normal speech Thoughts: Present: normal thought pattern, no apparent hallucination Assessment/Plan Plan Narrative: IMPRESSION & PLAN: MONIQUE on CKD Stage 3 - Improved -Admit to Med-Surg, inpatient status. Patient will need to be inpatient for more than 2 midnights to allow for appropriate work-up and treatment of the patients MONIQUE. -Unknown etiology at this time but likely pre-renal given the improvement in kidney function following IVF hydration. -Bilateral renal ultrasound on 04/11/2017 showed no focal renal mass or hydronephrosis, relatively echogenic appearance of renal parenchyma suggestive of renal parenchymal disease. -Strict I&Os -Daily standing weight -Decrease IVF hydration to NS @ 30cc/hr -Recheck BMP in AM Bladder Abnormality -CT scan completed in the ED on admission shows "significant urinary bladder wall thickening and surrounding inflammatory changes suggesting severe cystitis. -Patient would benefit from Urology consultation for cystoscopy. Case discussed with Urologist, Dr. Hemphill who reviewed the patient's case and the plan is for a cystoscopy on Tuesday05/06/2017. -Continue IV Rocephin Hydronephrosis, Hydroureter -CT scan completed in the ED on admission shows "associated bilateral hydronephrosis and hydroureter." This is new since her renal ultrasound on 04/11 which did not show any evidence of hydronephrosis. -Possibly related to bladder abnormality. Patient scheduled for OR with Dr. Hemphill on 05/06/2017. Possible UTI -Continue IV Rocephin -Nitrate negative. Patient may be colonized. -Final urine culture result growing strep agalactiae group B. Although not specifically tested against Rocephin, group B strep is usually sensitive to Rocephin so no change in antibiotics at this time. -Of note, patient was originally admitted with the diagnosis of sepsis. I do not agree with the admitting diagnosis of sepsis and I do not believe the patient is truly septic. Hypertensive Urgency -Restart home lasix 40mg daily -Increase home losartan dose to 50mg PO BID -Start HCTZ 25mg PO daily -Continue home metoprolol tartrate 25mg PO BID -Continue to monitor BP and adjust anti-hypertensive regimen as necessary. Goal BP is less than 140/90mmHg. -Monitor BMP closely, specifically creatinine, due to changes in medications. Check BMP in AM. Right Flank Hematoma -Secondary to a fall a few weeks ago where patient hit her right side on the ledge of her bathroom -Continue to monitor but no signs of active bleeding or enlarging hematoma -Continue lidocaine patch Pulmonary Nodules -Plan is for patient to get a CT scan as an outpatient Hyperkalemia - Resolved. Now Hypokalemia -Restart home potassium -Repeat BMP in AM MDS with history of Macrocytic Anemia -No signs of active bleeding. Patient transfused 2 Units of PRBCs on admission. -Patient follows with heme/onc, Dr. Haer. Peripheral smear on 04/24/2012 was unremarkable. BMB on 05/03/2012 showed early MDS. Given the patient's worsening kidney function and worsening anemia, one could consider further outpatient work-up with SPEP and UPEP for evaluation of possible multiple myeloma and/or repeat BMB. Patient is scheduled for routine follow-up with Dr. Hare in mid April 2017. CHRONIC STABLE MEDICAL CONDITIONS: Type 2 Diabetes Mellitus: Hold home medications. Monitor BG AC, HS and PRN. Levemir 8 Units Q12H. Medium dose correctional insulin TID with meals. Consistent carb diet. Anxiety and Depression: Continue home medications alprazolam PRN, Lexapro Hyperlipidemia: Continue home statin Benign Essential Hypertension: Continue to monitor BP with goal BP less than 140 /90mmHg. GERD: Continue home famotidine 20mg daily. Insomnia: Continue home trazodone. VTE ppx: Heparin, SCDs Code Status: DNR Disposition: Plan is for the patient to remain inpatient and be discharged tomorrow, 05/06/2017, just prior to her urologic procedure with Dr. Hemphill and then she will return home following this procedure. - Problems/Diagnosis (1) Hydronephrosis Problem: Acute (2) Hydroureter Problem: Acute (3) Hyperkalemia Problem: Acute (4) Hypertensive urgency Problem: Acute (5) Lesion of bladder Problem: Acute (6) UTI (urinary tract infection) Problem: Suspected (7) Pulmonary nodule Problem: Chronic (8) MONIQUE (acute kidney injury) Problem: Acute (9) Venous insufficiency (chronic) (peripheral) Problem: Chronic (10) Anemia in CKD (chronic kidney disease) Problem: Chronic (11) Anxiety and depression Problem: Chronic (12) Benign essential hypertension Problem: Chronic (13) CKD (chronic kidney disease) stage 3, GFR 30-59 ml/min Problem: Chronic (14) GERD (gastroesophageal reflux disease) Problem: Chronic (15) Hyperlipidemia Problem: Chronic (16) Insomnia Problem: Chronic (17) MDS (myelodysplastic syndrome) Problem: Chronic (18) Macrocytic anemia Problem: Chronic (19) Type 2 diabetes mellitus Problem: Chronic
[2017-05-05] MEDS: HYDROCHLOROTHIAZIDE 25 MG TABLET PO SCH (11:12)
[2017-05-05] MEDS: NORMAL SALINE 1,000 ML IV PRN (13:33)
[2017-05-05] MEDS ORDERED: METOPROLOL TARTRATE 1 MG/ML AMPUL IV PRN (14:08)
[2017-05-05] MEDS: traZODone HCL 50 MG TABLET PO SCH (21:32)
[2017-05-05] MEDS: ROSUVASTATIN CALCIUM 10 MG TABLET PO SCH (21:33)
[2017-05-06] MEDS: INSULIN DETEMIR 100 UNITS/ML VIAL SC SCH (00:55)
[2017-05-06 06:10] LABS: Hematocrit 29.2 % (37.0-47.0); Hemoglobin 10.1 gm/dL (12.5-16.0); Mean Cell Volume 98.6 fl (78-100); Mean Corpuscular Hemoglobin 34.1 pg (27-31); Mean Corpuscular Hgb Conc 34.6 g/dl (32-36); Mean Platelet Volume 10.8 fl (6.0-9.5); Platelet Count 225 K/mm3 (150-450); Red Blood Count 2.96 M/mm3 (4.2-5.4); Red Cell Distribution Width 16.6 % (11.5-14.0); White Blood Count 15.6 K/mm3 (4.0-10.5)
[2017-05-06 06:15] LABS: BUN/Creatinine Ratio 16.2 (9.0-21.6); Calcium * 8.2 mg/dL (7.9-10.9); Carbon Dioxide 27.5 mmol/L (24-32.6); Estimated Creat Clear 21.8; Potassium 3.5 mmol/L (3.4-4.6)
[2017-05-06] MEDS: INSULIN LISPRO 100 UNITS/ML VIAL SC SCH (07:08)
[2017-05-06] MEDS: POLYVINYL ALCOHOL 150 DROP BTL OP SCH (07:10)
[2017-05-06] MEDS: LOSARTAN POTASSIUM 50 MG TABLET PO SCH (07:10)
[2017-05-06] MEDS: METOPROLOL TARTRATE 25 MG TABLET PO SCH (07:12)
[2017-05-06] MEDS: POTASSIUM CHLORIDE 10 MEQ TABLET.SA PO SCH (07:13)
[2017-05-06] MEDS: FUROSEMIDE 40 MG TABLET PO SCH (07:13)
[2017-05-06 07:14] VITALS: BP 176/88
--- NOTE | 2017-05-06 09:23 | DS ---
(1) Hydronephrosis Problem: Acute (2) Hydroureter Problem: Acute (3) Hyperkalemia Problem: Acute (4) Hypertensive urgency Problem: Acute (5) Lesion of bladder Problem: Acute (6) UTI (urinary tract infection) Problem: Suspected (7) Pulmonary nodule Problem: Chronic (8) MONIQUE (acute kidney injury) Problem: Acute (9) Venous insufficiency (chronic) (peripheral) Problem: Chronic (10) Anemia in CKD (chronic kidney disease) Problem: Chronic (11) Anxiety and depression Problem: Chronic (12) Benign essential hypertension Problem: Chronic (13) CKD (chronic kidney disease) stage 3, GFR 30-59 ml/min Problem: Chronic (14) GERD (gastroesophageal reflux disease) Problem: Chronic (15) Hyperlipidemia Problem: Chronic (16) Insomnia Problem: Chronic (17) MDS (myelodysplastic syndrome) Problem: Chronic (18) Macrocytic anemia Problem: Chronic (19) Type 2 diabetes mellitus Problem: Chronic Description of Stay: ADMISSION DATE: 05/02/2017 DISCHARGE DATE: 05/06/2017 ADMISSION HPI by KIMO Gomez: 81 years old WF adm to the hospital with reports of dizziness and weakness. pt stated while at home she felt dizzy walking from her mailbox. PMH significant for vertigo, hypertension, diabetes II, CKD stage III and UTI. 04/11/17 pt was adm for worsening kidney function. Prior to adm she was treated in the ER for UTI 03/31/17. pt a poor historian and additional information obtained from previous records and ER notes.In ER Bun/Cre--->28/2.38 levels better than previous visit. uncontrolled hypertension SBP 200/98 had metoprolol 25mg and then cardizem 10mg given in ER. An additional dose metoprolol 25mg x1 now. From the nurses pt was complaining of abdominal pain, back pain and her urine was blood tint. pt however didn't provide that information. PROBLEM BASED HOSPITAL COURSE: MONIQUE on CKD Stage 3 - Improved -Patient admitted to Med-Surg, inpatient status. -Most likely pre-renal given the improvement in kidney function following IVF hydration. Obstructive uropathy also likely contributing. -Bilateral renal ultrasound on 04/11/2017 showed no focal renal mass or hydronephrosis, relatively echogenic appearance of renal parenchyma suggestive of renal parenchymal disease. Bladder Abnormality -CT scan completed in the ED on admission shows "significant urinary bladder wall thickening and surrounding inflammatory changes suggesting severe cystitis. -Patient would benefit from Urology consultation for cystoscopy. Case discussed with Urologist, Dr. Hemphill who reviewed the patient's case and the plan is for a cystoscopy on Tuesday05/06/2017. The patient was discharged just prior to her procedure. -Patient treated with IV Rocephin throughout her entire stay. Further antibiotics after her procedure will be per Dr. Hemphill. Hydronephrosis, Hydroureter -CT scan completed in the ED on admission shows "associated bilateral hydronephrosis and hydroureter." This is new since her renal ultrasound on 04/11 which did not show any evidence of hydronephrosis. -Possibly related to bladder abnormality. Patient scheduled for OR with Dr. Hemphill on 05/06/2017. Possible UTI -Patient treated with IV Rocephin throughout her entire admission -Nitrate negative. Patient may be colonized. -Final urine culture result growing strep agalactiae group B. Although not specifically tested against Rocephin, group B strep is usually sensitive to Rocephin so no change in antibiotics at this time. -Of note, patient was originally admitted with the diagnosis of sepsis. I do not agree with the admitting diagnosis of sepsis and I do not believe the patient is truly septic. Hypertensive Urgency - Improved -Lasix 20mg PO daily -Home losartan dose increased to 50mg PO BID on 05/04/2017 -HCTZ 25mg PO daily started on 05/04/2017 -Continue home metoprolol tartrate 25mg PO BID -Continue to monitor BP and adjust anti-hypertensive regimen as necessary. Goal BP is less than 140/90mmHg. -Monitor BMP closely, specifically creatinine, due to changes in medications. Check BMP on 05/09/2017. Right Flank Hematoma -Secondary to a fall a few weeks ago where the patient hit her right side on the ledge of her bathroom -Continue to monitor but no signs of active bleeding or enlarging hematoma -Continue lidocaine patch Pulmonary Nodules -Plan is for patient to get a CT scan as an outpatient MDS with history of Macrocytic Anemia -No signs of active bleeding. Patient transfused 2 Units of PRBCs on admission. -Patient follows with heme/onc, Dr. Hare. Peripheral smear on 04/24/2012 was unremarkable. BMB on 05/03/2012 showed early MDS. Given the patient's worsening kidney function and worsening anemia, one could consider further outpatient work-up with SPEP and UPEP for evaluation of possible multiple myeloma and/or repeat BMB. Patient is scheduled for routine follow-up with Dr. Hare in mid April 2017. CHRONIC STABLE MEDICAL CONDITIONS: Type 2 Diabetes Mellitus: Due to the patient's marked fluctuations in her kidney function, I feel that it is likely too risky to keep the patient on oral medications. The patient will follow-up with me in clinic next week and I will have my RN go through insulin teaching. After teaching, I will have the patient start Levemir Q12H and Novolog SSI TID with meals. Anxiety and Depression: Continue home medications alprazolam PRN, Lexapro Hyperlipidemia: Continue home statin Benign Essential Hypertension: Continue to monitor BP with goal BP less than 140 /90mmHg. GERD: Continue home famotidine 20mg daily. Insomnia: Continue home trazodone. VTE ppx: Heparin, SCDs Code Status: DNR Disposition: Patient discharged in stable condition to ambulatory surgery for her urologic procedure with Dr. Hemphill. [facility] set up for the patient after discharge. FOLLOW-UP APPOINTMENTS: -PCP, Dr. Floyd, on 05/10/2017 @ 2:00PM -[facility] to draw BMP on 05/09/2017 NEW OR CHANGED MEDICATIONS: -Lasix 20mg PO daily -HCTZ 25mg PO daily -Levemir 10 Units subQ Q12H -Novolog medium dose correction insulin subQ TID with meals BG <150: 0 Units BG 150-199: 2 Units BG 200-249: 4 Units BG 250-299: 6 Units BG 300-349: 8 Units BG =350: 10 Units -Lidocaine 5% patch Q12H on then Q12H off PRN pain -Losartan 50mg PO BID DISCONTINUED MEDICATIONS: -Januvia -Glimepiride RADIOLOGY REPORTS: Abdominal KUB on 05/01/2017 showed: Metallic foreign bodies in the pelvis are unchanged. Mild stools within the realm of normal variability. There are surgical clips in the right upper quadrant. There are degenerative changes in the lumbar spine. Bowel gas pattern evaluation is otherwise limited without upright or decubitus view. Two-view lumbar spine x-ray on 05/01/2017 showed: There is osteophyte formation most pronounced L1-L2. There are facet arthritic changes L4-L5 and L5-S1. Alignment appears within normal limits. No fractures identified. IMPRESSION: Lumbar spondylosis progressed in the interval (comparison from 03/16/2006). No acute osseous pathology identified. CT of the abdomen and pelvis without IV and without oral contrast on 05/01/2017 showed: There is right-sided hydronephrosis and hydroureter. There is very mild left-sided hydronephrosis and hydroureter as well. There is perirenal fat straining bilaterally. There is marked thickening of the urinary bladder wall with surrounding inflammatory change compatible with severe nonspecific cystitis. This appears to be the source of bilateral obstruction. No kidney stones identified. There is a large right flank hematoma. There is no hemoperitoneum. Evaluation of the remainder of the abdomen and pelvis is otherwise limited by the noncontrast protocol. There is a hiatal hernia. There are vascular calcifications. There are pulmonary nodules. This is worrisome for potential pulmonary metastatic disease. I recommend follow-up chest CT with contrast and an nonemergent fashion. Given these nodules in the bladder wall thickening a component of bladder malignancy must be considered clinically. Patient status post hysterectomy. IMPRESSION: 1. Significant urinary bladder wall thickening and surrounding inflammatory changes suggesting severe cystitis. Associated bilateral hydronephrosis and hydroureter. Recommend urology consultation. 2. Multiple pulmonary nodules. Recommend nonemergent chest CT with contrast for further evaluation. 3. Right flank hematoma. The coordination of care and discharge process provided by me on the day of discharge for [place] was at least 35 minutes. This time consisted of direct patient care which included counseling, coordinating and discussing the patients multiple medical conditions as well as time spent coordinating and ensuring that the patient had an appropriate discharge plan in place. Procedures Performed: none Discharge Disposition: Home self care Disposition: Home self-care Condition: Stable Discharge Activity: Activity as tolerated Discharge Diet: Resume usual diet Problem Oriented Discharge Instructions to Patient/Family: Urinary Tract Infection, Adult, [id number], Hypertension, [id number] Additional Patient Instructions (free text): Please make TCM appointment at discharge, if applicable. Thank you! Alla @ ext:[id number]. -Follow-up with PCP, Dr. Floyd, on 05/10/2017 @ 2:00PM -Follow-up with Dr. Hemphill per his recommendations -Check BMP on 05/09/2017 [facility] esuebio Reis call and fax them discharge orders. Prescriptions (Any new or edited meds): Acetaminophen [Tylenol] 1,000 mg PO Q6H PRN #1 tablet PRN Reason: Pain ALPRAZolam [Xanax] 0.5 mg PO TID PRN #1 tab PRN Reason: Anxiety Azelastine/Fluticasone [Dymista Nasal Union] 1 spray NS BID #1 spray.pump Cholecalciferol (Vitamin D3) [Vitamin D3] 1,000 unit PO DAILY #1 tab.chew Cyanocobalamin (Vitamin B-12) [Vitamin B12] 2 tab PO DAILY #1 tablet Furosemide [Lasix] 20 mg PO DAILY #30 tablet Hydrochlorothiazide [Hydrodiuril] 25 mg PO DAILY #30 tablet Insulin Aspart [Novolog Flexpen] See Protocol SQ AC #5 insuln.pen Insulin Detemir [Levemir Flextouch] 10 unit SQ Q12H #5 insuln.pen Krill/Om-3/Dha/Epa/Phospho/Ast [Megared Pendleton-3 Krill Oil Sfgl] 1 each PO DAILY #1 capsule Lidocaine [Lidoderm 5%] 1 patch TP DAILY PRN #30 adh..patch PRN Reason: Pain Losartan Potassium [Cozaar] 50 mg PO BID #60 tablet Sennosides/Docusate Sodium [Senna-S Tablet] 1 - 2 tab PO TID #1 tablet Complete Home Medications List: Complete Home Medication List: Atorvastatin Calcium [Lipitor] 10 mg PO HS 04/11/17 Calcium Citrate/Vitamin D3 [Calcium Citrate - Vit D Tablet] 1 each PO DAILY Escitalopram Oxalate [Lexapro] 10 mg PO DAILY 04/11/17 Metoprolol Tartrate [Lopressor] 25 mg PO BID 04/11/17 Potassium Chloride [Klor-Con Sprinkle] 10 meq PO DAILY 04/11/17 Propylene Glycol/Peg 400 [Systane 0.3-0.4% Eye Drops] 1 drop OP BID 04/11/17 Vit C/Vit E AC/Lut/Copper/Zinc [Preservision Lutein Softgel] 1 each PO DAILY traZODone HCL [Trazodone HCl] 100 mg PO HS 04/11/17 Famotidine 20 mg PO DAILY #30 tablet 04/13/17 ALPRAZolam [Xanax] 0.5 mg PO TID PRN #1 tab 05/06/17 Acetaminophen [Tylenol] 1,000 mg PO Q6H PRN #1 tablet 05/06/17 Azelastine/Fluticasone [Dymista Nasal Union] 1 spray NS BID #1 spray.pump Cholecalciferol (Vitamin D3) [Vitamin D3] 1,000 unit PO DAILY #1 tab.chew Cyanocobalamin (Vitamin B-12) [Vitamin B12] 2 tab PO DAILY #1 tablet 05/06/17 Furosemide [Lasix] 20 mg PO DAILY #30 tablet 05/06/17 Hydrochlorothiazide [Hydrodiuril] 25 mg PO DAILY #30 tablet 05/06/17 Insulin Aspart [Novolog Flexpen] See Protocol SQ AC #5 insuln.pen 05/06/17 Insulin Detemir [Levemir Flextouch] 10 unit SQ Q12H #5 insuln.pen 05/06/17 Krill/Om-3/Dha/Epa/Phospho/Ast [Megared Pendleton-3 Krill Oil Sfgl] 1 each PO DAILY #1 capsule 05/06/17 Lidocaine [Lidoderm 5%] 1 patch TP DAILY PRN #30 adh..patch 05/06/17 Losartan Potassium [Cozaar] 50 mg PO BID #60 tablet 05/06/17 Sennosides/Docusate Sodium [Senna-S Tablet] 1 - 2 tab PO TID #1 tablet 05/06/17 Amb Orders for Discharge: Basic Metabolic Panel Time Frame: 05/09/17, Facility: [facility], Location: Home Health Care
== END 2017-05-06 10:50 | DRG 690 ==
LOC: ER 19:33 → MS 22:18
PROVIDERS: ADMIT Nurse Practitioner; ATTEND Internal Medicine
DX: N13.6 Pyonephrosis (principal); B95.1 Streptococcus, group B, as the cause of diseases classified elsewhere; E87.5 Hyperkalemia; I16.0 Hypertensive urgency; I12.9 Hypertensive chronic kidney disease with stage 1 through stage 4 chronic kidney disease, or unspecified chronic kidney disease; E11.22 Type 2 diabetes mellitus with diabetic chronic kidney disease; N18.3 Chronic kidney disease, stage 3 (moderate); N17.9 Acute kidney failure, unspecified; K21.9 Gastro-esophageal reflux disease without esophagitis; E78.5 Hyperlipidemia, unspecified; E11.9 Type 2 diabetes mellitus without complications; F41.8 Other specified anxiety disorders; D63.1 Anemia in chronic kidney disease; R91.1 Solitary pulmonary nodule; Z79.84 Long term (current) use of oral hypoglycemic drugs

== ENCOUNTER 2017-05-06 12:14 | Day surgery (SDC) | payer MEDICARE, OTHER ==
[~2017-05-06 12:14] MED LIST: LEVOFLOXACIN/D5W 500 MG/100 ML BAG IV PRN; RINGER'S SOLUTION,LACTATED 1,000 ML IV ONE; ceFAZolin SODIUM 2 GM in DEXTROSE 5 % IN WATER 50 ML IV PRN
[2017-05-06] MEDS ORDERED: MICONAZOLE NITRATE 30 APPL TUBE TP SCH (14:00)
[2017-05-06 15:35] VITALS: BP 146/82
== END 2017-05-06 12:15 | disposition home or self-care (01) ==
LOC: AMB 12:14
PROVIDERS: ATTEND Urology
PROC: 0WHR8YZ Insertion of Other Device into Genitourinary Tract, Via Natural or Artificial Opening Endoscopic (ICD-10-PCS; 2017-05-06)
PROC: 0TBC8ZX Excision of Bladder Neck, Via Natural or Artificial Opening Endoscopic, Diagnostic (ICD-10-PCS; principal; 2017-05-06 12:00)
DX: N13.1 Hydronephrosis with ureteral stricture, not elsewhere classified (principal); N32.89 Other specified disorders of bladder; I12.9 Hypertensive chronic kidney disease with stage 1 through stage 4 chronic kidney disease, or unspecified chronic kidney disease; N18.3 Chronic kidney disease, stage 3 (moderate); E11.22 Type 2 diabetes mellitus with diabetic chronic kidney disease; E78.5 Hyperlipidemia, unspecified; K21.9 Gastro-esophageal reflux disease without esophagitis; D63.1 Anemia in chronic kidney disease; Z68.33 Body mass index [BMI] 33.0-33.9, adult

== ENCOUNTER 2017-05-20 10:59 | Day surgery (SDC) | payer MEDICARE, OTHER ==
[~2017-05-20 10:59] MED LIST changes: +CIPROFLOXACIN HCL 500 MG TABLET PO PRN; -LEVOFLOXACIN/D5W 500 MG/100 ML BAG IV PRN; -RINGER'S SOLUTION,LACTATED 1,000 ML IV ONE; -ceFAZolin SODIUM 2 GM in DEXTROSE 5 % IN WATER 50 ML IV PRN
[2017-05-20] MEDS ORDERED: LIDOCAINE HCL 10 APPL CARTRIDGE TP ONE (12:05)
[2017-05-20 12:32] VITALS: BP 154/73
== END 2017-05-20 11:00 | disposition home or self-care (01) ==
LOC: AMB 10:59
PROVIDERS: ATTEND Urology
PROC: 0TP98DZ Removal of Intraluminal Device from Ureter, Via Natural or Artificial Opening Endoscopic (ICD-10-PCS; principal; 2017-05-20 12:00)
DX: Z46.6 Encounter for fitting and adjustment of urinary device (principal); N30.90 Cystitis, unspecified without hematuria; N13.30 Unspecified hydronephrosis; I12.9 Hypertensive chronic kidney disease with stage 1 through stage 4 chronic kidney disease, or unspecified chronic kidney disease; E11.22 Type 2 diabetes mellitus with diabetic chronic kidney disease; N18.3 Chronic kidney disease, stage 3 (moderate); D63.1 Anemia in chronic kidney disease; K21.9 Gastro-esophageal reflux disease without esophagitis; N25.81 Secondary hyperparathyroidism of renal origin; E78.5 Hyperlipidemia, unspecified; F03.90 Unspecified dementia, unspecified severity, without behavioral disturbance, psychotic disturbance, mood disturbance, and anxiety; Z68.32 Body mass index [BMI] 32.0-32.9, adult

== ENCOUNTER 2017-08-16 06:51 | Day surgery (SDC) | payer MEDICARE, MEDICAID ==
[~2017-08-16 06:51] MED LIST changes: -CIPROFLOXACIN HCL 500 MG TABLET PO PRN; +RINGER'S SOLUTION,LACTATED 1,000 ML IV PRN; +ceFAZolin SODIUM 1 GM VIAL IV PRN
[2017-08-16] MEDS ORDERED: RINGER'S SOLUTION,LACTATED 1,000 ML IV ONE (07:35)
[2017-08-16] MEDS ORDERED: BUPIVACAINE HCL 50 ML VIAL IJ ONE (08:31)
--- NOTE | 2017-08-16 09:01 | OR ---
Operative Report - Dictated Report Narrative: Date: 08/16/2017 Physician: Yuri Johnson M.D. Ironworker: Keyon Dozier PA-C Preoperative diagnosis: Right cubital tunnel syndrome Postoperative diagnosis: Right cubital tunnel syndrome Procedure: Right ulnar nerve decompression at the cubital tunnel Anesthesia: General Plus local Complications: None Estimated blood loss: Minimal Tourniquet time: 16 Minutes at 250 mmHg Specimens: None Retained implants: None Drains: None Indications: Little is a 82 year-old female who has been followed in my clinic with complaints of cubital tunnel syndrome. Physical exam as well as diagnostic testing showed compression of the ulnar nerve compatible with cubital tunnel syndrome. Conservative measures have failed including but not limited to activity modification, medications, and splinting. The risks, benefits, and alternatives were discussed in clinic. The risks being bleeding, infection, nerve, tendon, blood vessel injury, persistent pain, wound competitions, weakness, palm pain, need for additional procedures, and persistent symptoms. Consent was obtained in the clinic. Procedure: After marking the correct extremity in the preoperative holding area, a timeout was performed in the operating room. IV antibiotics consisting of 1 g of Ancef were administered prior to the procedure. A well-padded tourniquet was applied to the operative upper arm. The arm was exsanguinated and the tourniquet was inflated to 250 mmHg. 0.5% Marcaine without epinephrine was infused into the projected incision site over the medial elbow. Using loupe magnification, a longitudinal incision centered over the cubital tunnel was made approximately 7 centimeters in length. Blunt dissection was carried down to the subcutaneous tissues using bipolar cautery for hemostasis. Care was taken to protect the identified underlying cutaneous nerves. The ulnar nerve was identified as it passed through the medial intermuscular septum along the distal triceps. A release of the canal in this area as the ulnar nerve passed anterior to posterior was performed in order to decompress the nerve at this site. The nerve was dissected releasing the overlying soft tissues while maintaining the vascularity of the nerve down to the area of the medial epicondyles and Gaspar' s ligament. The nerve was completely decompressed as it passed posterior to the medial condyle and was followed into the flexor carpi ulnaris. The deep fascia of the flexor carpi ulnaris muscle was released in order to decompress the nerve at this site. The first branch of the ulnar nerve was protected as well as any identified recurrent branches. The elbow was placed through range of motion and it was noted that the nerve was not unstable nor did it appear to be under tension as it passed behind the medial epicondyle. For this reason it was not felt that a transposition was necessary. Once it was felt that we had completely released the compressive structures on the ulnar nerve, the wounds were thoroughly irrigated and the tourniquet was deflated. Hemostasis was obtained using pressure and bipolar cautery. Once adequate hemostasis was in place local anesthetic was placed in the skin edges, and the subcutaneous tissue was closed with interrupted Vicryl. The skin was closed with 4-0 nylon and sterile dressings consisting of Xeroform, 4 x 4, soft roll, and a forearm Malcolm wrap was applied. All sponge, needle, blade, and instrument counts were correct prior to closing the wounds. The patient was awoken and transferred to the postanesthesia care unit in stable condition.
[2017-08-16 11:29] VITALS: BP 132/62
== END 2017-08-16 06:52 | disposition home or self-care (01) ==
LOC: AMB 06:51
PROVIDERS: ATTEND Orthopaedic Surgery
PROC: 01N40ZZ Release Ulnar Nerve, Open Approach (ICD-10-PCS; principal; 2017-08-16)
DX: G56.21 Lesion of ulnar nerve, right upper limb (principal); E11.22 Type 2 diabetes mellitus with diabetic chronic kidney disease; N18.3 Chronic kidney disease, stage 3 (moderate); I10 Essential (primary) hypertension; K21.9 Gastro-esophageal reflux disease without esophagitis; Z79.4 Long term (current) use of insulin; Z79.899 Other long term (current) drug therapy; Z88.3 Allergy status to other anti-infective agents

== ENCOUNTER 2019-08-14 08:20 | Inpatient (IN) ==
[~2019-08-14 08:20] MED LIST changes: -RINGER'S SOLUTION,LACTATED 1,000 ML IV PRN; +ROPIVACAINE HCL/PF 100 MG, EPINEPHrine 0.2 MG, KETOROLAC TROMETHAMINE 30 MG in NORMAL S... IJ PRN; +TRANEXAMIC ACID 1,000 MG in NORMAL SALINE 100 ML IV PRN; +VANCOMYCIN HCL 1 GM in DEXTROSE 5 % IN WATER 250 ML IV PRN
[2019-08-14] MEDS ORDERED: MIDAZOLAM HCL/PF 5 MG/ML VIAL ONE (08:43)
[2019-08-14] MEDS ORDERED: BUPIVACAINE HCL/EPINEPHRINE 50 ML VIAL ONE (08:44)
[2019-08-14] MEDS ORDERED: LIDOCAINE HCL 50 ML VIAL ONE (08:44)
[2019-08-14] MEDS ORDERED: PROPOFOL VIAL IV ONE (08:44)
[2019-08-14] MEDS ORDERED: ceFAZolin SODIUM 1 GM VIAL ONE (08:45)
[2019-08-14] MEDS: RINGER'S SOLUTION,LACTATED 1,000 ML IV PRN ×2 (08:50→13:00)
--- NOTE | 2019-08-14 09:08 | ANES ---
Anesthesia Pre Procedure Eval Vitals/Labs: Last Vital Signs Temp 37 C 08/14/19 08:23 Pulse 89 08/14/19 08:23 Resp 20 08/14/19 08:23 BP 140/86 08/14/19 08:23 Pulse Ox 96 08/14/19 08:23 HOME MEDICATIONS Propylene Glycol/Peg 400/Pf [Systane 0.3-0.4% Eye Drop] 1 ea OP BID PRN 01/20/18 [Last Taken 06/02/18] Estrogens, Conjugated [Premarin] 1 appl VG Q72H 01/24/18 [Last Taken 10/01/18] fluticasone propionate 50 mcg/actuation nasal spray,suspension 1 spray VLADIMIR DAILY #9.9 g 09/14/18 [Last Taken 10/01/18] pen needle,diabetic dual safty 30 gauge x 09/30" See Dose Instructions .ROUTE .MEDSUPPLY #100 ea 01/31/19 [Last Taken Unknown] cyanocobalamin (vitamin B-12) 2,500 mcg tablet 2,500 mcg PO DAILY #90 tab 02/19/19 [Last Taken Unknown] blood sugar diagnostic See Rx Instructions .ROUTE .COMPLEX #100 strip 03/06/19 [Last Taken Unknown] lancets See Rx Instructions .ROUTE .COMPLEX #100 each 06/18/19 [Last Taken Unknown] escitalopram oxalate 20 mg tablet 20 mg PO DAILY #30 tab 06/20/19 [Last Taken Unknown] losartan 50 mg tablet 50 mg PO DAILY #30 tab 06/20/19 [Last Taken Unknown] trazodone 100 mg tablet 100 mg PO HS #30 tab 07/03/19 [Last Taken Unknown] Atorvastatin Calcium [Lipitor] 1 tab PO HS 08/14/19 [Last Taken Unknown] Calcium Carbonate/Vitamin D3 [Calcium 600-Vit D3 400 Tablet] 1 tab PO DAILY 08/14/19 [Last Taken Unknown] Cholecalciferol [Vitamin D] 1 tab PO DAILY 08/14/19 [Last Taken Unknown] Insulin Detemir [Levemir Flextouch] 25 units SQ DAILY 08/14/19 [Last Taken Unknown] Metoprolol Tartrate [Lopressor] 1 tab PO BID 08/14/19 [Last Taken Unknown] Mv-Mins No.22/Lut/Om3/Dha/Epa [Tozal Softgel] 1 tab PO TID 08/14/19 [Last Taken Unknown] Omeprazole 1 cap PO DAILY 08/14/19 [Last Taken Unknown] Allergies/Adverse Reactions: Allergies Allergy/AdvReac Type Severity Reaction Status Date / Time Sulfa (Sulfonamide Allergy Mild RASH Verified 08/14/19 08:41 Antibiotics) [Sulfa(Sulfonamide Antibiotics)] prednisone AdvReac Intermediate fast HR, Verified 08/14/19 08:41 "feels like heart is going to jump out of skin" - Planned Procedure Planned Procedure: Left Arthroplasty Total Knee Medication List Reviewed:: Yes Allergies Verified: Yes Medical History (Last Reviewed 08/14/19 @ 09:07 by Crow Geiger CRNA) Osteoarthritis of knees, bilateral (Acute) Onset Date: Unknown Knee pain, left (Acute) Onset Date: Unknown GERD (gastroesophageal reflux disease) (Chronic) Type II diabetes mellitus (Chronic) Dysphagia (Chronic) Anxiety and depression (Chronic) Benign essential hypertension (Chronic) Hyperlipidemia (Chronic) GERD (gastroesophageal reflux disease) (Chronic) Fibrocystic breast disease (Chronic) Hypertension (Chronic) Diabetes mellitus, type 2 (Chronic) Depression (Chronic) Chronic pain syndrome (Chronic) Chronic kidney disease, stage 3 (Chronic) Arthritis (Chronic) No history of alcohol use No history of regular tobacco use No illicit drug use Stasis dermatitis Onset Date: ~01/2019 Lung nodule Osteoarthritis Surgical History (Last Reviewed 08/14/19 @ 09:07 by Crow Geiger CRNA) S/P knee replacement (Resolved) Onset Date: 01/24/18 Dr Calloway presents for 3-month postoperative follow-up status post right total knee replacement. She is doing very well at this point. She has minimal pain and continues to improve with regards to range of motion, strengthening, and overall mobility. She states that she still does not quite trust the knee secondary to some weakness. She is currently using a roller walker out in the community but uses a cane at home. Status post right knee replacement Onset Date: 01/2018 History of YAG laser capsulotomy of lens of right eye Onset Date: ~2003 History of arthroscopy of right knee Onset Date: 05/26/15 [place] History of cataract Onset Date: ~2001 removal, right eye 2001 History of cholecystectomy Onset Date: ~2001 History of colonoscopy Onset Date: 03/12/101999 Kannenberg-normal. 03/12/10 Bagan-normal. History of cystoscopy Onset Date: ~05/19/181998, 04/2017 Lesia-Cystoscopy with bladder irrigation, urethral dilation, bilateral retrograde pyelograms, and bilateral ureteral stent insertions History of esophagogastroduodenoscopy (EGD) Onset Date: 10/02/18 Bagan-02/29/08 w/dilation-gastritis, hiatal hernia. 03/12/10 mild gastritis, hiatal hernia, reflux. 10/02/18-w/dilation. Clotest negative, mild chronic and reactive gastropathy/chemical gastritis. History of hernia repair Onset Date: ~1989 bilateral inguinal hernia History of temporal artery biopsy Onset Date: 11/06/07 Mrrwl-[id number] History of total abdominal hysterectomy and bilateral salpingo-oophorectomy Onset Date: ~1989 History of varicose vein stripping Onset Date: ~2001 left leg S/P cubital tunnel release Onset Date: 08/16/17 Breder-right Family History (Last Reviewed 08/14/19 @ 09:07 by Crow Geiger CRNA) Brother , age 18-unsure of cause No problems noted. Mother , age 97-Alzheimers Alzheimers disease Father , age 37-ruptured appendix Ruptured appendix Brother Colon cancer dx age 50's Sister Alzheimers disease - Family Anesthesia History Family History:: no untoward family reactions to anesthesia, no familial bleeding tendencies, no family history of clotting disorders, no family history of premature - Airway/Neck/Teeth Within Normal Limits:: Yes Mallampatti Score: 2 Thyromental (T-M) distance: > 6 cm Mandibulo Hyoid distance: > 3 cm - Respiratory Respiratory Physical: lungs clear Smoking Status: Never smoker Sleep Apnea currently treated: No Sleep Apnea by current assessment: No - Cardiovascular Cardiac History: hypertension, hyperlipidemia Tolerate Activity: Poor Heart Sounds: S1 & S2, Regular - Anesthesia Assessment and Plan ASA Class: PS, III Anesthesia Type Plan: Block - Adductor canal for post op pain relief, Spinal
[2019-08-14] MEDS ORDERED: ONDANSETRON HCL/PF 2 MG/ML VIAL IV PRN (10:30)
[2019-08-14] MEDS ORDERED: ACETAMINOPHEN 500 MG TABLET PO PRN (10:30)
[2019-08-14] MEDS ORDERED: MORPHINE SULFATE 2 MG/ML DISP.SYRIN IV PRN (10:30)
[2019-08-14] MEDS ORDERED: oxyCODONE HCL/ACETAMINOPHEN 1 TAB TABLET PO PRN (10:30)
[2019-08-14] MEDS ORDERED: MAG HYDROX/ALUMINUM HYD/SIMETH 30 ML UDC PO PRN (10:30)
[2019-08-14] MEDS ORDERED: MAGNESIUM HYDROXIDE 30 ML UDC PO PRN (10:30)
[2019-08-14] MEDS ORDERED: VANCOMYCIN HCL 1 GM VIAL ONE (10:57)
--- NOTE | 2019-08-14 13:11 | OR ---
Operative Report - Dictated Report Narrative: Date: 08/14/2019 Preoperative diagnosis: Left knee degenerative joint disease. Postoperative diagnosis: Left knee degenerative joint disease. Procedure: Left total knee arthroplasty. Surgeon: Yuri Johnson M.D. Sugar Cane Planting Equipment Operator: Keyon Dozier PA-C provided a set of essential, skilled, educated hands that assisted in positioning, transfer, retraction, manipulation, irrigation, closure of wounds, and placement of dressings all of which could not be provided by the available surgical crew. Anesthesia: Spinal with regional block and local periarticular joint injection. Complications: None Specimens: Bone for disposal. Estimated blood loss: Minimal. Tourniquet time: 76 minutes at 300 millimeters of mercury. Retained implants: Depuy Attune size 3 standard lugged cemented posterior stabilized femoral component. Size 2 rotating cemented tibial platform. 3 by 8 millimeter posterior stabilized cross-linked tibial insert. 29 millimeter medialized patella button. Indications: Little is a 84-year-old female who has been followed in my clinic for period of time with significant complaints of left knee pain consistent with arthritic changes. She has failed conservative measures including but not limited to activity modification, passage of time, medications, and other conservative measures. Patient wished to proceed with surgical treatment. The risks, benefits, and alternatives were discussed in clinic. The risks of , blood clots, bleeding, infection, nerve/tendon blood vessel/ injury, malposition of components, intraoperative fracture, postoperative limited range of motion, persistent pain, failure of components, and need for additional procedures. Patient wished to proceed consent was obtained after answering all questions. Procedure: After marking the correct extremity on the floor, the patient was taken to the operating room. A timeout was performed. IV antibiotics consisting of 1 g of vancomycin were administered prior to the procedure. A regional followed by spinal anesthetic was induced by anesthesia. on the operative table with all bony prominences well-padded. Muller catheter was placed and a bump was placed under the operative side buttock. SCDs and KARINE hose were utilized on the nonoperative leg. A well-padded tourniquet was applied to the operative thigh. The operative leg was then pre-scrubbed with alcohol prepped and draped in a standard sterile fashion. After exsanguinating the extremity with an Esmarch bandage, the tourniquet was inflated. After marking out the anterior knee for standard incision centered over the patella, the skin was incised and dissected down to the joint retinaculum. The joint retinaculum was marked out as well as the horizontal axis of the patella, and a standard medial parapatellar arthrotomy was then made. The most proximal aspect of the quadriceps tendon and the patella tendon insertion were protected from release. A partial synovectomy was performed as well as a resection of the infrapatellar fat pad. The distal femoral fat pad proximal to the trochlea was also resected using cautery. The soft tissues were elevated off the medial aspect of the proximal tibia using a Atkinson elevator ensuring that we did not transect the medial collateral ligament. Upon initial evaluation range of motion was approximately 0 degrees to 120 degrees of flexion. There were signs of advanced arthrosis in the medial and patellofemoral joint spaces. There were large marginal osteophytes which were removed with a rongeur. The knee was hyperflexed and the patella was tucked laterally. Protecting the surrounding soft tissues with Homans, an entry drill was placed down the femoral canal using Whitesides line for guidance into the entry point. The intramedullary femoral alignment grisel was utilized in order to cut the distal femur in 5 of valgus resecting 10 millimeters of bone. Next the distal femur was sized to a size 3. An anterior referencing guide was utilized to place the distal femoral cutting block in 3 of external rotation. This was pinned into place. The rotation was confirmed both visually and based on anatomic landmarks. The 4 in 1 cutting jig of the appropriate size was utilized in order to make all bony cuts. Retractors were utilized in order to protect surrounding soft tissues. This cut did not result in any excessive notching. We then cut the box centered over the distal femur. This allowed for resection of the anterior and posterior cruciate ligaments. I then turned my attention to the preparation of the tibia. Using an extra medullary tibial alignment grisel, 3 millimeters of bone was resected off the medial articular surface. This was made perpendicular to the mechanical axis of the joint with the alignment grisel centered over the ankle mortise. The alignment grisel was parallel to the mechanical axis, centered over the medial one third of the tibial tubercle, paralleling the anterior surface of the tibia. We then turned our attention to the remaining meniscus and soft tissues. These were removed while protecting the surrounding ligaments and soft tissues. The marginal osteophytes off the anterior, posterior, medial, lateral aspects of the femur and tibia were removed. The tibia was sized out to a size 2. Next the tibia was drilled and punched in an externally rotated position as confirmed with a drop grisel. Next the trial femur and a series of tibial inserts were utilized in order to allow for full extension and maximal flexion. It was found that a 8 millimeter insert gave the best range of motion and stability at multiple flexion points as well as at full extension there was less than 2 mm of gapping both medially and laterally. There is minimal anterior translation with the knee at 90 of flexion and no signs of being able to dislocate the knee. The patella was then prepared. The initial thickness was 19 millimeters. This was reamed down to 12 millimeters parallel to the anterior surface of the patella. It was sized out to a size 29 mm medialized patella button. This was then drilled and trialed. Without any medial restraint the patella tracked appropriately and did not sublux or dislocate. At this point, it was felt these were the appropriate sized implants and all trials were removed. The standard periarticular joint injection consisting of ropivacaine, Toradol, and epinephrine were injected into the periarticular joint tissues. The bony surfaces were thoroughly irrigated with a pulsatile-suction saline irrigation device. A bone plug from the prior resected anterior chamfer cut was placed into the drill hole at the distal femur. The bony surfaces were then dried in preparation for placement of the implants. The cement was vacuum mixed per the litigation support analyst's instructions. The cement was placed on the dry bony surfaces and posterior aspect of the implants. The implants were impacted into place, removing all extruded cement. At this point anesthesia administered tranexamic acid per protocol intravenously. The knee was placed in extension with axial loading with the trial insert while the cement cured. A dilute 0.35% betadyne-saline solution was used to irrigate the knee and allowed to sit in the knee while the cement cured. Once the cement cured, all remaining extruded cement was removed. The knee was placed through a range of motion with the trial insert to ensure appropriate range of motion and stability. Final range of motion was approximately 0 to 125 degrees. The knee was again thoroughly irrigated with pulsatile saline lavage. The final polyethylene insert was then impacted into place ensuring no retained soft tissues. The remaining periart icular joint injection was injected. The knee was then packed with lap sponges which were soaked with dilute betadyne solution and the tourniquet was let down. Pressure was held for approximately 2 minutes and then hemostasis was obtained using electrocautery to coagulate any bleeding vessels. The knee was then placed over a triangle and the arthrotomy was closed with interrupted #1 Vicryl after thoroughly irrigating the joint. The deep and subcutaneous tissues were closed with interrupted oh and 3-0 Vicryl respectively. Skin was closed with a running subcutaneous 3-0 Monocryl and Prineo dressing. 4 x 4's, ABD, Sof-Rol, and a full leg Malcolm wrap were applied. All sponge, needle, blade, and instrument counts were correct prior to closing the wounds. Postoperative condition: The patient was awoken and transferred to the postanesthesia care unit in stable condition. Plan is to be admitted to the inpatient medical/surgical floor postoperatively for 24 hours of IV antibiotics, physical therapy, occupational therapy, and medical co-management. Patient will be weightbearing as tolerated with range of motion as tolerated. DVT prophylaxis will be with SCDs, KARINE hose, and pharmacological anticoagulation. Anticipated hospital stay is approximately 2-4 days.
--- NOTE | 2019-08-14 13:37 | ANES ---
Post Anesthesia Discharge - Transfer of Care Transfer of Care handoff given to nurse: Yes - Discharge from PACU Discharge from PACU when meets criteria: Yes - Comfortable in PACU.
--- NOTE | 2019-08-14 13:38 | ANES ---
Anesthesia Procedure Note Procedure Note: ANESTHESIA PROCEDURE NOTE Date of Procedure: [08/14/2019 Time of procedure: 10:40 AM. Performed by: KIMO Zimmer CRNA, MSN Truck Shop Mechanic: Lynsey Kumar RN. Preprocedure diagnosis: Post left knee arthroplasty pain. Post procedure diagnosis: Same. Procedure: Left adductor Canal Block. Indications: Post left total knee arthroplasty pain relief. Findings: See below. Details of the procedure: The patient was brought to OR #4 and placed in supine position. The patient's left femoral area to the knee was prepped with chlorhexidine and using ultrasound guidance the left femoral artery and nerve was identified and then followed to the level of the adductor canal. Lidocaine 1% was infiltrated to the skin of the intended injection site. Under ultrasound guidance the saphenous nerve was approached with visualization of a 2 inch shielded block needle. Once saphenous nerve was identified with proximity to the needle tip, the saphenous nerve was surrounded with 20 mL bupivacaine 0.5% with 1-200,000 epinephrine. Please see radiology/ultrasound report for details and retained images of the procedure. EBL: 0 Fluids: N/A. Specimen: N/A. Post procedure condition: The patient tolerated the procedure well. No complications were noted. Thank you for this consultation. Crow Geiger CRNA, ARNP, MSN
[2019-08-14] MEDS: NORMAL SALINE 1,000 ML IV PRN (14:23)
[2019-08-14] MEDS: NYSTATIN 15 APPL BTL TP SCH ×2 (15:02→20:42)
--- NOTE | 2019-08-14 15:45 | ANES ---
Post Anesthesia Assessment - Vital Signs Vitals: Last Vital Signs Temp 36.5 C 08/14/19 14:13 Pulse 100 08/14/19 15:28 Resp 14 08/14/19 14:58 BP 121/63 08/14/19 15:28 Pulse Ox 96 08/14/19 15:28 Airway Patency: Normal - Mental Status Level Of Consciousness: Awake, Alert, Appropriate - Pain Level Pain Score: 0 - N/V Assessment Nausea/Vomiting Presence: None Dehydration:: No
--- NOTE | 2019-08-14 15:53 | CONS ---
[facility] - General Date of Service: 08/14/19 Narrative: This consultation is for post-op management of her multiple medical problems after her knee replacement. She has a PMHx of type II diabetes, stage III chronic renal disease, HTN, venous insufficiency, chronic anemia, diastolic dysfunction with mild pulmonary hypertension. She is seen a few hours after surgery, and denies current complaints. Nursing reports mild skin irritation in her groin and abdominal folds. Source: patient Exam Limitations: no limitations - History of Present Illness Allergies/Adverse Reactions: Allergies Sulfa (Sulfonamide Antibiotics) [Sulfa(Sulfonamide Antibiotics)] Allergy (Mild, Verified 08/14/19 08:41) RASH prednisone Adverse Reaction (Intermediate, Verified 08/14/19 08:41) fast HR, "feels like heart is going to jump out of skin" Home Medications: Home Medications Medication Instructions Recorded Last Taken Propylene Glycol/Peg 400/Pf 1 ea OP BID PRN 01/20/18 06/02/18 [Systane 0.3-0.4% Eye Drop] Estrogens, Conjugated [Premarin] 1 appl VG Q72H 01/24/18 10/01/18 fluticasone propionate 50 1 spray VLADIMIR DAILY #9.9 g 09/14/18 10/01/18 mcg/actuation nasal spray,suspension pen needle,diabetic dual safty 30 See Dose Instructions .ROUTE 01/31/19 Unknown gauge x 09/30" .MEDSUPPLY #100 ea cyanocobalamin (vitamin B-12) 2,500 mcg PO DAILY #90 tab 02/19/19 Unknown 2,500 mcg tablet blood sugar diagnostic See Rx Instructions .ROUTE 03/06/19 Unknown .COMPLEX #100 strip lancets See Rx Instructions .ROUTE 06/18/19 Unknown .COMPLEX #100 each escitalopram oxalate 20 mg tablet 20 mg PO DAILY #30 tab 06/20/19 Unknown losartan 50 mg tablet 50 mg PO DAILY #30 tab 06/20/19 Unknown trazodone 100 mg tablet 100 mg PO HS #30 tab 07/03/19 Unknown Atorvastatin Calcium [Lipitor] 1 tab PO HS 08/14/19 Unknown Calcium Carbonate/Vitamin D3 1 tab PO DAILY 08/14/19 Unknown [Calcium 600-Vit D3 400 Tablet] Cholecalciferol [Vitamin D] 1 tab PO DAILY 08/14/19 Unknown Insulin Detemir [Levemir Flextouch] 25 units SQ DAILY 08/14/19 Unknown Metoprolol Tartrate [Lopressor] 1 tab PO BID 08/14/19 Unknown Mv-Mins No.22/Lut/Om3/Dha/Epa 1 tab PO TID 08/14/19 Unknown [Tozal Softgel] Omeprazole 1 cap PO DAILY 08/14/19 Unknown Procedures Application of other wound dressing (04/02/09) Arthrocentesis (02/17/11) Biopsy of blood vessel (11/06/07) CLOSED ENDOSCOPIC BIOPSY OF LARGE INTESTINE (03/12/10) Closed [percutaneous] [needle] biopsy of breast (02/09/12) Colonoscopy (01/12/06) Dilation of esophagus (02/29/08) Discission of secondary membrane [after cataract] (11/19/03) ESOPHAGOGASTRODUODENOSCOPY [EGD] W/CLOSED BIOPSY (03/12/10) Excision of Right Knee Joint, Percutaneous Endoscopic Approach (05/26/15) INSERT INDWELLING CATH (03/06/10) Insertion of intraocular lens prosthesis at time of cataract extraction, one- stage (10/10/01) Laparoscopic cholecystectomy (03/13/02) Ligation and stripping of varicose veins, lower limb veins (03/13/02) Local excision of lesion of breast (10/23/01) Other diagnostic procedures on breast (02/09/12) Other repair of urinary stress incontinence (04/22/03) Percutaneous cystostomy (04/22/03) Phacoemulsification and aspiration of cataract (10/10/01) Retrograde pyelogram (11/19/04) Ureteral catheterization (11/19/04) X-ray, other and unspecified (02/09/12) Medications - Medications Current Medications: Current Medications Cefazolin Sodium (Ancef) 1 gm IV PRN PRN; Protocol PRN Reason: Perioperative Stop: 08/14/19 23:00 Last Admin: 08/14/19 10:35 Dose: 1 gm Documented by: Vancomycin HCl 1 gm/ Dextrose/ (Water) 250 mls @ 140 mls/hr IV PRN PRN; Protocol PRN Reason: PERIOPERATIVE Stop: 08/14/19 23:00 Last Infusion: 08/14/19 10:40 Dose: Infused Documented by: Ropivacaine 100 mg/Epinephrine HCl 0.2 mg/Ketorolac Tromethamine 30 mg/Sodium Chloride 111.2 mls @ 0.01 mls/hr IJ PRN PRN PRN Reason: JOINT INJECTION Stop: 08/14/19 23:59 Last Admin: 08/14/19 11:34 Dose: 0.01 mls/hr Documented by: Tranexamic Acid 1,000 mg/ (Sodium Chloride) 110 mls @ 600 mls/hr IV PRN PRN PRN Reason: blood loss reduction Stop: 08/14/19 23:00 Last Infusion: 08/14/19 12:50 Dose: Infused Documented by: Sodium Chloride (Sodium Chloride 0.9%) 1,000 mls @ 100 mls/hr IV .Q10H PRN PRN Reason: HYDRATION Stop: 09/13/19 10:31 Last Admin: 08/14/19 14:23 Dose: 100 mls/hr Documented by: Nystatin (Mycostatin Powder) 1 appl TP BID REKHA Stop: 09/13/19 15:01 Last Admin: 08/14/19 15:02 Dose: 1 appl Documented by: Review of Systems - Review of Systems Generalized/Overall Review: Absent: Fever Respiratory: Absent: Shortness of Breath Cardiac: Absent: Chest Pain, Edema Abdominal: Absent: Vomiting, Constipation - last BM was this morning Genitourinary: Present: No Symptoms Reported Musculoskeletal: Present: Joint Pain Skin: Present: Rash - abdomen and groin folds Physical Examination - Exam Vital Signs: Vital Signs - Last Taken Temp 36.5 C 08/14/19 14:13 Pulse 100 08/14/19 15:28 Resp 14 08/14/19 14:58 BP 121/63 08/14/19 15:28 Pulse Ox 96 08/14/19 15:28 O2 Oxygen Delivery Method Room Air Constitutional: Present: Alert - yany hugger in place, Oriented x3, Cooperative, No distress, Elderly ENT Exam: Present: hard of hearing Respiratory: Present: lungs clear, normal breath sounds Cardiovascular/Chest: Present: regular rate, rhythm - borderline tachycardic. Absent: edema Extremity: Present: other - hasn't yet regained complete feeling, but feeling of feet is intact to touch Eye contact: Present: cooperative, good eye contact - Assessments/Findings (1) Osteoarthritis of knees, bilateral Diagnosis(s): She underwent left total knee arthroplasty earlier today, and will defer pain co ntrol to ortho. PT and wound care per their instructions. She will likely be going to the [facility] [place]. Problem: Acute (2) Type II diabetes mellitus Diagnosis(s): Continue her 25 U long acting insulin, and will check glucose at meals and at bedtime. She does not usually use mealtime insulin, but given the stress of surgery, her glucose may be higher than normal. Her last A1C was 7.5 two months ago. Problem: Chronic (3) CKD (chronic kidney disease) stage 3, GFR 30-59 ml/min Diagnosis(s): Will need to check daily creatinine and GFR to ensure her renal function is tolerating vancomycin. Her baseline creatinine is around 1.4, and was 1.48 on 08/03/19. Baseline GFR is around 30, and it was 38 on recent check. She's currently having appropriate urinary output. Problem: Chronic (4) Anemia in CKD (chronic kidney disease) Diagnosis(s): Her baseline hbg is around 10.3. She is borderline tachycardic on my exam. If her heart rate were to increase to 110 or greater overnight, will check H&H at that time. Problem: Chronic (5) Benign essential hypertension Diagnosis(s): BP currently well controlled, and will continue home losartan. She is prescribed bid metoprolol, and will continue this as well. Problem: Chronic (6) Anxiety and depression Diagnosis(s): Continue home lexapro. Problem: Chronic (7) Diastolic dysfunction Diagnosis(s): Will monitor for fluid overload, and DC fluids when she is able to maintain po hydration. Problem: Acute (8) Insomnia Diagnosis(s): Continue home trazodone. Problem: Chronic (9) Pulmonary hypertension Diagnosis(s): No current shortness of breath. Problem: Acute (10) GERD (gastroesophageal reflux disease) Diagnosis(s): Continue home omeprazole. Problem: Chronic (11) Venous insufficiency (chronic) (peripheral) Problem: Chronic (12) MDS (myelodysplastic syndrome) Problem: Chronic
[2019-08-14] MEDS: oxyCODONE HCL/ACETAMINOPHEN 1 TAB TABLET PO PRN ×2 (16:11→20:39)
[2019-08-14] MEDS: INSULIN LISPRO 100 UNITS/ML VIAL SC SCH ×2 (16:58→20:50)
[2019-08-14] MEDS: ceFAZolin SODIUM 1 GM in DEXTROSE 5 % IN WATER 100 ML IV SCH ×2 (16:59)
[2019-08-14] MEDS: ROSUVASTATIN CALCIUM 10 MG TABLET PO SCH (20:40)
[2019-08-14] MEDS: METOPROLOL TARTRATE 25 MG TABLET PO SCH (20:41)
[2019-08-14] MEDS: SENNOSIDES/DOCUSATE SODIUM 1 TAB TABLET PO SCH (20:42)
[2019-08-15] MEDS: ceFAZolin SODIUM 1 GM in DEXTROSE 5 % IN WATER 100 ML IV SCH ×4 (00:34→10:01)
[2019-08-15] MEDS: NORMAL SALINE 1,000 ML IV PRN (00:39)
[2019-08-15 06:36] LABS: Hematocrit 25.7 % (37.0-47.0); Hemoglobin 8.5 gm/dL (12.5-16.0); Mean Cell Volume 110.8 fl (78-100); Mean Corpuscular Hemoglobin 36.6 pg (27-31); Mean Corpuscular Hgb Conc 33.1 g/dl (32-36); Mean Platelet Volume 10.7 fl (8-12.5); Platelet Count 189 K/mm3 (150-450); Red Blood Count 2.32 M/mm3 (4.2-5.4); Red Cell Distribution Width 14.2 % (11.5-14.0); White Blood Count 10.2 K/mm3 (4.0-10.5)
[2019-08-15 06:43] LABS: BUN/Creatinine Ratio 21.2 (9.0-21.6); Carbon Dioxide 22.9 mmol/L (24-32.6); Estimated Creat Clear 18.4; Potassium 4.9 mmol/L (3.4-4.6)
[2019-08-15] MEDS: INSULIN LISPRO 100 UNITS/ML VIAL SC SCH ×4 (07:34→20:10)
[2019-08-15] MEDS: PANTOPRAZOLE SODIUM 20 MG TABLET.DR PO SCH (07:37)
--- NOTE | 2019-08-15 08:34 | PN ---
Subjective - Date and Time Seen Date: 08/15/19 Time: 08:15 Subjective Narrative: Nursing overnight was concerned about urine output. She was noted to be wheezing this morning and fluids were stopped. On my exam, she reports feeling somewhat short of breath, but not increased from her baseline. She has no new concerns. Objective - Review of Systems Generalized/Overall Review: Reports: Weakness. Denies: Fever Respiratory: Reports: Wheezing Cardiac: Denies: Chest Pain, Edema Abdominal: Denies: Nausea, Vomiting Genitourinary Symptoms: Reports: Oliguria - per nursing Musculoskeletal Complaints: Reports: Joint Pain - Vitals Vitals: Last Vital Signs Temp 36.6 C 08/15/19 04:08 Pulse 94 08/15/19 04:08 Resp 20 08/15/19 04:08 BP 130/53 08/15/19 04:08 Pulse Ox 95 08/15/19 04:08 - Abnormal Lab Findings Abnormal Lab Findings: Abnormal Lab Results 08/15/19 08/15/19 Range/Units 06:30 06:30 RBC 2.32 L (4.2-5.4) M/mm3 Hgb 8.5 L (12.5-16.0) gm/dL Hct 25.7 L (37.0-47.0) % MCV 110.8 H (78-100) fl MCH 36.6 H (27-31) pg RDW 14.2 H (11.5-14.0) % Potassium 4.9 H (3.4-4.6) mmol/L Carbon Dioxide 22.9 L (24-32.6) mmol/L BUN 35 H (3-23) mg/dL Creatinine 1.65 H (0.4-1.4) mg/dL Est GFR (Non-Af Amer) 32 L (60-130) mL/min Random Glucose 197 H (70-110) mg/dL - Exam Constitutional: Present: Alert, Oriented x3, Cooperative, No distress, Elderly Respiratory: Present: no respiratory distress, wheezing Cardiovascular/Chest: Present: regular rate, rhythm, no edema Abdomen: Present: soft, nontender Extremity: Present: other - KARIEN hose on right lower leg, left leg wrapped in EVERETT wrap Skin Exam: Present: skin rash - mild, in abdominal folds and groin, powder in place Eye contact: Present: cooperative, good eye contact Cauti Physician Documentation - Urinary Catheter Management Urethral (Muller) Date of Insertion: 08/14/19 Time of Insertion: 10:50 Assessment/Plan - Problems/Diagnosis (1) Wheezing on both sides of chest Problem: Acute Narrative: She is having audible wheezes bilaterally. Her fluids were stopped earlier this morning. She does not report increased work of breathing, and her vitals are within normal limits. She was examined shortly after ambulating from the bed to the chair, and this may have played a part in her wheeze. Given her kidney function being decreased, I am reluctant to administer Lasix unless she is reporting shortness of breath. Will have a low threshold to give 20 mg IV Lasix. Her weight has not changed from yesterday. Will start telemetry for closer cardiac monitoring. (2) Osteoarthritis of knees, bilateral Problem: Acute Narrative: Postop day 1 left total knee arthroplasty. Please see Ortho notes for their recommendations. (3) Type II diabetes mellitus Problem: Chronic Narrative: Her glucose has been higher than 200, and will continue sliding scale insulin. She was given 4 units yesterday and 3 units this morning. Continue home 25 units long-acting basal insulin. (4) CKD (chronic kidney disease) stage 3, GFR 30-59 ml/min Problem: Chronic Narrative: Today's creatinine is 1.6, and her baseline is around 1.4, so the very slight increase is not a significant change. We will need to closely monitor her renal function as she is receiving vancomycin. In the last 24 hours, total urine output is 1590 cc, which is 0.87 cc/kg/hr, which is within normal range. (5) Anemia in CKD (chronic kidney disease) Problem: Chronic Narrative: Hemoglobin today is 8.5, which is a decrease from 10.3 earlier this month. No active signs of bleeding, and will recheck in the morning. (6) Benign essential hypertension Problem: Chronic Narrative: Currently well controlled on home 25 mg losartan. (7) Anxiety and depression Problem: Chronic (8) Diastolic dysfunction Problem: Acute (9) Insomnia Problem: Chronic (10) Pulmonary hypertension Problem: Acute (11) GERD (gastroesophageal reflux disease) Problem: Chronic (12) Venous insufficiency (chronic) (peripheral) Problem: Chronic (13) MDS (myelodysplastic syndrome) Problem: Chronic
[2019-08-15] MEDS: METOPROLOL TARTRATE 25 MG TABLET PO SCH ×2 (09:56→20:09)
[2019-08-15] MEDS: CALCIUM CARBONATE/VITAMIN D3 1 TAB TABLET PO SCH (09:56)
[2019-08-15] MEDS: ESCITALOPRAM OXALATE 10 MG TAB PO SCH (09:57)
[2019-08-15] MEDS: LOSARTAN POTASSIUM 50 MG TABLET PO SCH (09:57)
[2019-08-15] MEDS: CHOLECALCIFEROL 1,000 UNIT CAPSULE PO SCH (09:57)
[2019-08-15] MEDS: CYANOCOBALAMIN 1,000 MCG TABLET PO SCH (09:58)
[2019-08-15] MEDS: NYSTATIN 15 APPL BTL TP SCH ×2 (09:58→20:09)
[2019-08-15] MEDS: INSULIN GLARGINE,HUM.REC.ANLOG 100 UNITS/ML VIAL SC SCH (09:59)
[2019-08-15] MEDS: FLUTICASONE PROPIONATE 120 SPRAY INHALER NS SCH (10:01)
[2019-08-15] MEDS: ENOXAPARIN SODIUM 40 MG/0.4 ML SYRG SC SCH (10:06)
--- NOTE | 2019-08-15 11:20 | PN ---
Subjective - Date and Time Seen Date: 08/15/19 Time: 07:45 Subjective Narrative: No acute events overnight. No significant concerns currently. Patient notes her pain is controlled at this time mild to moderate. Patient has been up to chair without significant complication. Objective - Vitals Vitals: Last Vital Signs Temp 36.6 C 08/15/19 09:19 Pulse 100 08/15/19 09:57 Resp 18 08/15/19 09:19 BP 130/60 08/15/19 09:57 Pulse Ox 94 08/15/19 09:19 - Abnormal Lab Findings Abnormal Lab Findings: Abnormal Lab Results 08/15/19 08/15/19 Range/Units 06:30 06:30 RBC 2.32 L (4.2-5.4) M/mm3 Hgb 8.5 L (12.5-16.0) gm/dL Hct 25.7 L (37.0-47.0) % MCV 110.8 H (78-100) fl MCH 36.6 H (27-31) pg RDW 14.2 H (11.5-14.0) % Potassium 4.9 H (3.4-4.6) mmol/L Carbon Dioxide 22.9 L (24-32.6) mmol/L BUN 35 H (3-23) mg/dL Creatinine 1.65 H (0.4-1.4) mg/dL Est GFR (Non-Af Amer) 32 L (60-130) mL/min Random Glucose 197 H (70-110) mg/dL - Exam Constitutional: Present: Alert, Cooperative Extremity: Present: other - LLE--> sensation intact light touch, postoperative bandages in place clean/dry/intact, sensation intact light touch, 5/5 toe flexion extension Eye contact: Present: cooperative Thoughts: Present: normal thought pattern Cauti Physician Documentation - Urinary Catheter Management Urethral (Muller) Date of Insertion: 08/14/19 Time of Insertion: 10:50 Assessment/Plan Plan Narrative: -84-year-old postop day 1 status post left total knee replacement -Weightbearing as tolerated, walker for assistive device -PT/OT progress as tolerated -P.o. pain medication PRN -P.o. diet as tolerated -Maintain surgical dressings in place -DVT prophylaxis: Lovenox, KARINE hose, SCDs in bed -Chronic medical conditions per medicine team, note they were consulted for concern of wheezing on exam as well as urine output, have spoken with the medicine physician Dr. Brown notes no significant acute concerns -Disposition: Patient will continue to monitor continue work towards weightbearing goals, continue to obtain pain control monitor p.o. diet, plan to discharge to care home facility once all goals are met and no significant acute concerns - Problems/Diagnosis (1) Status post total left knee replacement Problem: Acute
[2019-08-15] MEDS: oxyCODONE HCL/ACETAMINOPHEN 1 TAB TABLET PO PRN ×2 (13:37→19:27)
[2019-08-15] MEDS: ROSUVASTATIN CALCIUM 10 MG TABLET PO SCH (20:08)
[2019-08-15] MEDS: SENNOSIDES/DOCUSATE SODIUM 1 TAB TABLET PO SCH (20:08)
[2019-08-16] MEDS: oxyCODONE HCL/ACETAMINOPHEN 1 TAB TABLET PO PRN ×3 (05:21→19:47)
[2019-08-16 06:40] LABS: Mean Cell Volume 108.2 fl (78-100); Mean Corpuscular Hemoglobin 35.9 pg (27-31); Mean Corpuscular Hgb Conc 33.2 g/dl (32-36); Mean Platelet Volume 11.1 fl (8-12.5); Platelet Count 184 K/mm3 (150-450); Red Cell Distribution Width 13.9 % (11.5-14.0); White Blood Count 12.9 K/mm3 (4.0-10.5)
[2019-08-16 06:41] LABS: Anion Gap 13.3 mmol/L (6.8-13.8); BUN/Creatinine Ratio 20.3 (9.0-21.6); Calcium * 8.4 mg/dL (7.9-10.9); Estimated Creat Clear 20.5; Potassium 4.3 mmol/L (3.4-4.6)
[2019-08-16 07:06] LABS: Hemoglobin 7.9 gm/dL (12.5-16.0)
[2019-08-16] MEDS: PANTOPRAZOLE SODIUM 20 MG TABLET.DR PO SCH (07:06)
[2019-08-16 07:07] LABS: Hematocrit 23.8 % (37.0-47.0)
[2019-08-16] MEDS: INSULIN LISPRO 100 UNITS/ML VIAL SC SCH ×4 (07:40→21:14)
[2019-08-16] MEDS: CALCIUM CARBONATE/VITAMIN D3 1 TAB TABLET PO SCH (08:31)
[2019-08-16] MEDS: LOSARTAN POTASSIUM 50 MG TABLET PO SCH (08:32)
[2019-08-16] MEDS: METOPROLOL TARTRATE 25 MG TABLET PO SCH ×2 (08:33→21:20)
[2019-08-16] MEDS: ESCITALOPRAM OXALATE 10 MG TAB PO SCH (08:33)
[2019-08-16] MEDS: CYANOCOBALAMIN 1,000 MCG TABLET PO SCH (08:34)
[2019-08-16] MEDS: CHOLECALCIFEROL 1,000 UNIT CAPSULE PO SCH (08:34)
[2019-08-16] MEDS: ENOXAPARIN SODIUM 40 MG/0.4 ML SYRG SC SCH (08:37)
[2019-08-16] MEDS: INSULIN GLARGINE,HUM.REC.ANLOG 100 UNITS/ML VIAL SC SCH (08:38)
[2019-08-16] MEDS: NYSTATIN 15 APPL BTL TP SCH ×2 (08:39→21:16)
[2019-08-16] MEDS: FLUTICASONE PROPIONATE 120 SPRAY INHALER NS SCH (08:40)
--- NOTE | 2019-08-16 09:27 | PN ---
Subjective - Date and Time Seen Date: 08/16/19 Time: 08:00 Subjective Narrative: She feels like she wheezes when she does physical activity or if she gets upset. She is very nervous about falling. She is eating well, and denies constipation. She is working with physical therapy. Objective - Review of Systems Generalized/Overall Review: Reports: Weakness. Denies: Fever Respiratory: Reports: Wheezing. Denies: Shortness of Breath Cardiac: Denies: Chest Pain Abdominal: Denies: Vomiting, Constipation Genitourinary Symptoms: Reports: No Symptoms Reported Musculoskeletal Complaints: Reports: Joint Pain Neurological: Reports: Anxiety Skin: Reports: Rash - skin folds - Vitals Vitals: Last Vital Signs Temp 36.7 C 08/16/19 02:30 Pulse 96 08/16/19 08:33 Resp 18 08/16/19 02:30 BP 130/62 08/16/19 08:33 Pulse Ox 95 08/16/19 02:30 - Abnormal Lab Findings Abnormal Lab Findings: Abnormal Lab Results 08/16/19 08/16/19 Range/Units 06:32 06:32 WBC 12.9 H D (4.0-10.5) K/mm3 RBC 2.20 L (4.2-5.4) M/mm3 Hgb 7.9 L* (12.5-16.0) gm/dL Hct 23.8 L* (37.0-47.0) % MCV 108.2 H (78-100) fl MCH 35.9 H (27-31) pg Carbon Dioxide 23.0 L (24-32.6) mmol/L BUN 30 H (3-23) mg/dL Creatinine 1.48 H (0.4-1.4) mg/dL Est GFR (Non-Af Amer) 36 L (60-130) mL/min Random Glucose 197 H (70-110) mg/dL - Exam Constitutional: Present: Alert, Cooperative, No distress, Elderly Respiratory: Present: no respiratory distress, wheezing - posterior bases, improved from yesterday Cardiovascular/Chest: Present: regular rate, rhythm - HR 100 Abdomen: Present: soft, nontender Eye contact: Present: cooperative Cauti Physician Documentation - Urinary Catheter Management Urethral (Muller) Date of Insertion: 08/14/19 Time of Insertion: 10:50 Assessment/Plan - Problems/Diagnosis (1) Wheezing on both sides of chest Problem: Acute Narrative: She is oxygenating well, and vitals are not abnormal. She feels like she wheez es more when she is upset, which is correlated by nursing. Today's weight is pending, but she did not have change in weight thus far. Could potentially be due to her diastolic dysfunction. her wheezing resolves without intervention when she calms down. (2) Osteoarthritis of knees, bilateral Problem: Acute Narrative: She is post-op day #2 of left total knee arthroplasty. Mgt per ortho. She will be ok to DC to the [facility] when she has met PT goals. (3) Anemia in CKD (chronic kidney disease) Problem: Chronic Narrative: Her hgb this morning was 7.9, which is not significantly different from yesterday at 8.5. Her heart rate is ok, in the upper 90's, and she is oxygenating well. If she were to develop sustained tachycardia of greater than 120, or require oxygen, or if hgb decreased to less than 7.0, will transfuse PRBCs. (4) Type II diabetes mellitus Problem: Chronic Narrative: Her glucose has been higher than her normal, likely due to the stress of surgery. She had several readings greater than 200 yesterday, and was given 17 U SSI in addition to her home 25 U basal insulin. This morning's glucose was 181, and SSI not needed. (5) CKD (chronic kidney disease) stage 3, GFR 30-59 ml/min Problem: Chronic Narrative: Baseline creatinine is around 1.4. She had a very slight increase yesterday to 1.69, but today's creatinine improved to 1.48. (6) Benign essential hypertension Problem: Chronic Narrative: well controlled overnight on home losartan, bid metoprolol. (7) Anxiety and depression Problem: Chronic Narrative: Her escitalopram dose is actually higher than recommended for her age. With her fall risk, will need to avoid benzodiazepines. If her anxiety is absolutely uncontrolled, can try very low dose hydroxyzine. (8) Diastolic dysfunction Problem: Chronic (9) Insomnia Problem: Chronic (10) Pulmonary hypertension Problem: Chronic (11) GERD (gastroesophageal reflux disease) Problem: Chronic (12) Venous insufficiency (chronic) (peripheral) Problem: Chronic (13) MDS (myelodysplastic syndrome) Problem: Chronic
--- NOTE | 2019-08-16 15:48 | PN ---
Subjective - Date and Time Seen Date: 08/16/19 Time: 10:30 Subjective Narrative: Patient reports no acute events. She notes she has been up with therapy and feels she is walking better. She still has mild pain rates it 4/10 currently after walking. She notes she had nausea yesterday but that seems to have resolved at this time. Objective - Vitals Vitals: Last Vital Signs Temp 36.2 C 08/16/19 13:50 Pulse 95 08/16/19 13:50 Resp 20 08/16/19 13:50 BP 158/67 H 08/16/19 14:23 Pulse Ox 94 08/16/19 13:50 - Abnormal Lab Findings Abnormal Lab Findings: Abnormal Lab Results 08/16/19 08/16/19 Range/Units 06:32 06:32 WBC 12.9 H D (4.0-10.5) K/mm3 RBC 2.20 L (4.2-5.4) M/mm3 Hgb 7.9 L* (12.5-16.0) gm/dL Hct 23.8 L* (37.0-47.0) % MCV 108.2 H (78-100) fl MCH 35.9 H (27-31) pg Carbon Dioxide 23.0 L (24-32.6) mmol/L BUN 30 H (3-23) mg/dL Creatinine 1.48 H (0.4-1.4) mg/dL Est GFR (Non-Af Amer) 36 L (60-130) mL/min Random Glucose 197 H (70-110) mg/dL - Exam Constitutional: Present: Alert, Cooperative, No distress Extremity: Present: other - LLE--> SILT, distal pulse 2+, 5/5 plantarflexion /dorsiflexion, post-op bandages c/d/i, mild diffuse distal edema, mild diffuse ttp about knee Eye contact: Present: cooperative Thoughts: Present: normal thought pattern Cauti Physician Documentation - Urinary Catheter Management Urethral (Muller) Date of Insertion: 08/14/19 Time of Insertion: 10:50 Assessment/Plan Plan Narrative: -84-year-old postop day 2 status post left total knee replacement -Weightbearing as tolerated, walker for assistive device -PT/OT progress as tolerated -P.o. pain medication PRN -P.o. diet as tolerated -Maintain surgical dressings in place -DVT prophylaxis: PatynoxKARINE, SCDs in bed -Chronic medical conditions per medicine team -Disposition: Patient will continue to monitor continue work towards weightbearing goals and ambulatory status, continue pain control, monitor p.o. diet, plan to discharge to longterm facility once all goals are met and no significant acute concerns - Problems/Diagnosis (1) Status post total left knee replacement Problem: Acute
[2019-08-16] MEDS: ROSUVASTATIN CALCIUM 10 MG TABLET PO SCH (21:17)
[2019-08-16] MEDS: SENNOSIDES/DOCUSATE SODIUM 1 TAB TABLET PO SCH (21:34)
[2019-08-17] MEDS: oxyCODONE HCL/ACETAMINOPHEN 1 TAB TABLET PO PRN ×2 (04:49→09:09)
[2019-08-17] MEDS: PANTOPRAZOLE SODIUM 20 MG TABLET.DR PO SCH (06:39)
[2019-08-17] MEDS: INSULIN LISPRO 100 UNITS/ML VIAL SC SCH ×2 (06:40→11:27)
[2019-08-17] MEDS ORDERED: ALBUTEROL SULFATE/IPRATROPIUM 3 ML NEBU IH PRN (08:15)
[2019-08-17] MEDS: NYSTATIN 15 APPL BTL TP SCH (08:25)
[2019-08-17] MEDS: FLUTICASONE PROPIONATE 120 SPRAY INHALER NS SCH (08:25)
[2019-08-17] MEDS: CHOLECALCIFEROL 1,000 UNIT CAPSULE PO SCH (08:25)
[2019-08-17] MEDS: ESCITALOPRAM OXALATE 10 MG TAB PO SCH (08:25)
[2019-08-17] MEDS: CALCIUM CARBONATE/VITAMIN D3 1 TAB TABLET PO SCH (08:26)
[2019-08-17] MEDS: CYANOCOBALAMIN 1,000 MCG TABLET PO SCH (08:26)
[2019-08-17] MEDS: LOSARTAN POTASSIUM 50 MG TABLET PO SCH (08:26)
[2019-08-17] MEDS: METOPROLOL TARTRATE 25 MG TABLET PO SCH (08:26)
[2019-08-17] MEDS: ENOXAPARIN SODIUM 40 MG/0.4 ML SYRG SC SCH (08:32)
[2019-08-17] MEDS: INSULIN GLARGINE,HUM.REC.ANLOG 100 UNITS/ML VIAL SC SCH (08:33)
[2019-08-17 09:03] LABS: Mean Cell Volume 110.3 fl (78-100); Mean Corpuscular Hemoglobin 36.6 pg (27-31); Mean Corpuscular Hgb Conc 33.2 g/dl (32-36); Mean Platelet Volume 11.2 fl (8-12.5); Neutrophil # 8.9 K/mm3 (1.3-6.0); Neutrophil % 69.9 % (42-75.0); Platelet Count 202 K/mm3 (150-450); Red Blood Count 2.13 M/mm3 (4.2-5.4); Red Cell Distribution Width 14.2 % (11.5-14.0); White Blood Count 12.7 K/mm3 (4.0-10.5)
[2019-08-17 09:05] LABS: Hemoglobin 7.8 gm/dL (12.5-16.0)
[2019-08-17 09:14] LABS: Hematocrit 23.5 % (37.0-47.0)
[2019-08-17 09:47] LABS: Albumin * 2.5 gm/dl (3.4-5.0); BUN/Creatinine Ratio 20.6 (9.0-21.6); Bilirubin, Total 0.4 mg/dL (0.0-1.1); Ca. Corrected For Albumin 9.6 mg/dL (8.4-10.2); Calcium * 8.7 mg/dL (7.9-10.9); Carbon Dioxide 23.3 mmol/L (24-32.6); Potassium 4.3 mmol/L (3.4-4.6); Total Protein 6.9 gm/dL (6.2-8.2)
[2019-08-17] MEDS ORDERED: POLYETHYLENE GLYCOL 3350 17 GM PACKET PO SCH (10:45)
--- NOTE | 2019-08-17 10:47 | PN ---
Subjective - Date and Time Seen Date: 08/17/19 Time: 10:34 Subjective Narrative: Patient feels like she's ambulating ok with PT. She feels like she may be getting constipated. Objective - Review of Systems Generalized/Overall Review: Reports: Weakness Respiratory: Reports: Wheezing Cardiac: Denies: Chest Pain Abdominal: Reports: Constipation. Denies: Vomiting Genitourinary Symptoms: Reports: No Symptoms Reported Musculoskeletal Complaints: Reports: Joint Pain Neurological: Reports: Anxiety - Vitals Vitals: Last Vital Signs Temp 36.4 C 08/17/19 09:59 Pulse 85 08/17/19 09:59 Resp 20 08/17/19 09:59 BP 157/70 H 08/17/19 09:59 Pulse Ox 94 08/17/19 09:59 - Abnormal Lab Findings Abnormal Lab Findings: Abnormal Lab Results 08/17/19 08/17/19 08/17/19 Range/Units 08:54 08:54 09:45 WBC 12.7 H (4.0-10.5) K/mm3 RBC 2.13 L (4.2-5.4) M/mm3 Hgb 7.8 L* (12.5-16.0) gm/dL Hct 23.5 L* (37.0-47.0) % MCV 110.3 H (78-100) fl MCH 36.6 H (27-31) pg RDW 14.2 H (11.5-14.0) % Immature Gran % (Auto) 0.50 H (0.001-0.429) % Immature Gran # (Auto) 0.06 H (0.000-0.0310) K/mm3 Lymphocytes % 15.9 L (20-51) % Monocytes % 10.5 H (0.0-9) % Neutrophils # 8.9 H (1.3-6.0) K/mm3 Monocytes # 1.3 H (0.0-1.0) k/mm3 Carbon Dioxide 23.3 L (24-32.6) mmol/L Anion Gap 15.0 H (6.8-13.8) mmol/L BUN 36 H (3-23) mg/dL Creatinine 1.75 H (0.4-1.4) mg/dL Est GFR (Non-Af Amer) 30 L (60-130) mL/min Random Glucose 191 H (70-110) mg/dL ALT 13 L (19-67) U/L Albumin 2.5 L (3.4-5.0) gm/dl Crossmatch See Detail - Exam Constitutional: Present: Alert, Cooperative, Elderly Respiratory: Present: no respiratory distress, wheezing Cardiovascular/Chest: Present: regular rate, rhythm Extremity: Present: other - SCDs on bilateral lower legs Cauti Physician Documentation - Urinary Catheter Management Urethral (Muller) Date of Insertion: 08/14/19 Time of Insertion: 10:50 Assessment/Plan - Problems/Diagnosis (1) Anemia in CKD (chronic kidney disease) Problem: Chronic Narrative: Her hemoglobin did not improve from yesterday. She was 7.9 yesterday, and 7.8 this morning. With her reduced renal function, she is not recovering her hemoglobin very quickly, so will given 1 U PRBC. She is not dropping significantly, either. OK to DC to the [facility] when she has met PT goals. Creatinine baseline is around 1.4, and she is at 1.7 this morning - no significant change. (2) Wheezing on both sides of chest Problem: Chronic Narrative: Will add duonebs. She reports this is chronic, and she feels like it is related to her "nerves." Her wheezing does improve when she's relaxed. No crackles on lung sounds. (3) Osteoarthritis of knees, bilateral Problem: Acute Narrative: Today is POD #3 left total knee arthroplasty. Mgt per ortho. She will be discharging to the [facility] on DC. (4) Type II diabetes mellitus Problem: Chronic Narrative: continue 25 U basal insulin. Her SSI protocol was increased to moderate dose yesterday, as she was consistently still higher than 200. Would anticipate this will improve as she recovers from surgery. Recommend continuing glucose checks with meals when at the [facility], and can temporarily increase her basal insulin if needed. (5) CKD (chronic kidney disease) stage 3, GFR 30-59 ml/min Problem: Chronic Narrative: Creatinine and GFR are not changing significantly. She had unmeasured voids, so unable to determine her overall urine output. (6) Benign essential hypertension Problem: Chronic Narrative: Continue home meds. (7) Anxiety and depression Problem: Chronic Narrative: She is already higher than max dose for her escitalopram. She has been very upset about the pain in her knee, so now that she has had it replaced, I would anticipate her overall discomfort would improve. Can switch from escitalopram if needed, after she has recovered from her surgery. Would prefer to avoid adding another agent for anxiety, as that would increase her fall risk. (8) Diastolic dysfunction Problem: Chronic (9) Insomnia Problem: Chronic Narrative: continue tramadol. (10) Pulmonary hypertension Problem: Chronic (11) GERD (gastroesophageal reflux disease) Problem: Chronic (12) Venous insufficiency (chronic) (peripheral) Problem: Chronic (13) MDS (myelodysplastic syndrome) Problem: Chronic (14) Constipation Problem: Acute Narrative: She's been getting senna, and miralax was added today. Encourage water intake.
--- NOTE | 2019-08-17 14:46 | DS ---
(1) Status post total left knee replacement Problem: Acute (2) Anemia in CKD (chronic kidney disease) Problem: Chronic (3) Postoperative anemia due to acute blood loss Problem: Acute Date of Discharge:: 08/17/19 Hospital Course: Little is an 84-year-old female postop day 3 status post left total knee arthroplasty. Patient has had a fairly uncomplicated stay she was admitted postoperatively for monitoring of complications, pain control, PT/OT, monitoring of her chronic medical conditions. Patient has had a significant drop in her hemoglobin note she has chronic anemia however her hemoglobin dropped to 7.8 today the decision was made to transfuse 1 unit of packed red blood cells. Patient tolerated that without complication. Patient otherwise has her pain well controlled at this time with p.o. pain medication, she has met her PT/OT goals and is ready for discharge to a [facility] facility. Exam today reveals diffuse mild lower extremity edema on the left lower extremity, sensation intact light touch, distal capillary refill brisk, sensation intact light touch, 5/5 plantar flexion dorsiflexion of left ankle, postoperative bandages were taken down, revealing of her nail, there was mild bleeding just distal to her patella, small hematoma underneath pernio dressing, otherwise wound has no significant erythema or drainage. Patient will follow-up with her PCP next week for routine well check postoperatively. Monitor her anemia. Patient will follow-up with orthopedic outpatient clinic at 2 weeks postop. Patient will continue with the following recommendations: -PT/OT progress as tolerated, walker as assistive device -P.o. diet as tolerated -P.o. pain medication PRN, Percocet 5/325 mg 1-2 tabs every 4 to 6 hours PRN for pain p.o. -DVT prophylaxis: Lovenox until 10 days postop, 325 mg aspirin daily for 6 weeks, KARINE hose knee-high -Monitor pernio dressing, if any significant erythema, drainage, bleeding occurs call orthopedic outpatient clinic -Patient has had mild constipation will continue Senokot 1 tab at night PRN -Chronic medical conditions per medicine continue to be monitored with follow-up with her PCP -Disposition: Discharge to a [facility] facility to all goals are met to be discharged home Procedures Performed: see notes below List Procedures: Left total knee arthroplasty Results and Findings: Lab Pending Results 08/15/19 06:30: WBC 10.2, RBC 2.32 L, Hgb 8.5 L, Hct 25.7 L, MCV 110.8 H, MCH 36.6 H, MCHC 33.1, RDW 14.2 H, Plt Count 189, MPV 10.7 08/15/19 06:30: Sodium 135, Plasma Sodium 137, Potassium 4.9 H, Chloride 104, Carbon Dioxide 22.9 L, Anion Gap 13.0, BUN 35 H, Creatinine 1.65 H, Est GFR (Non-Af Amer) 32 L, BUN/Creatinine Ratio 21.2, Random Glucose 197 H, Calcium 8.0 08/16/19 06:32: WBC 12.9 H D, RBC 2.20 L, Hgb 7.9 L*, Hct 23.8 L*, MCV 108.2 H, MCH 35.9 H, MCHC 33.2, RDW 13.9, Plt Count 184, MPV 11.1 08/16/19 06:32: Sodium 134, Plasma Sodium 136, Potassium 4.3, Chloride 102, Carbon Dioxide 23.0 L, Anion Gap 13.3, BUN 30 H, Creatinine 1.48 H, Est GFR (N on-Af Amer) 36 L, BUN/Creatinine Ratio 20.3, Random Glucose 197 H, Calcium 8.4 08/17/19 08:54: WBC 12.7 H, RBC 2.13 L, Hgb 7.8 L*, Hct 23.5 L*, MCV 110.3 H, MCH 36.6 H, MCHC 33.2, RDW 14.2 H, Plt Count 202, MPV 11.2, Immature Gran % (Auto) 0.50 H, Immature Gran # (Auto) 0.06 H, Neutrophils % 69.9, Lymphocytes % 15.9 L, Monocytes % 10.5 H, Eosinophils % 2.7, Basophils % 0.5, Nucleated RBC % 0.0, Neutrophils # 8.9 H, Lymphocytes # 2.03, Monocytes # 1.3 H, Eosinophils # 0.3, Absolute Basophils 0.1 08/17/19 08:54: Sodium 135, Plasma Sodium 136, Potassium 4.3, Chloride 101, Carbon Dioxide 23.3 L, Anion Gap 15.0 H, BUN 36 H, Creatinine 1.75 H, Est GFR (Non-Af Amer) 30 L, BUN/Creatinine Ratio 20.6, Random Glucose 191 H, Calcium 8.7, Calcium Adj for Albumin 9.6, Total Bilirubin 0.4, AST 18, ALT 13 L, Alkaline Phosphatase 70, Total Protein 6.9, Albumin 2.5 L 08/17/19 09:45: Blood Type O Positive, Antibody Screen Negative, Crossmatch See Detail Discharge Location: [facility] Disposition: SNF Condition: Good Level of Care: SNF Discharge Activity: Activity as tolerated, Weight bearing - Walker as assistive device, note this is baseline Discharge Diet: General/regular food Detention Therapy: Physical Therapy, Occupation Therapy Referrals: Yuri Johnson MD [Staff Physician] - 08/29/19 10:30 am Problem Oriented Discharge Instructions to Patient/Family: Total Knee Replacement, Care After, [id number] Print Language (Tajik or Cambodian Available): Tajik Additional Patient Instructions (free text): Pt going to [facility] at discharge, please call and fax discharge information to them. PT and OT to evaluate and treat. Follow up in Orthopedic office with Dr. Arellano on 08/29/2019 at 10:30a.m. Prescriptions (Any new or edited meds): Enoxaparin Sodium [Lovenox] 40 mg SC Q24H #7 disp.syrin Transmission Status: Pending to [facility] oxyCODONE HCL/ACETAMINOPHEN [Percocet 5 MG/325 MG] 1 - 2 tab PO Q4H PRN #60 tab PRN Reason: Severe Pain (Pain Scale 7-10) Transmission Status: Sent to [facility] Sennosides/Docusate Sodium [Senokot-S] 1 tab PO HS #20 tab Transmission Status: Pending to [facility] Complete Home Medications List: Complete Home Medication List: Propylene Glycol/Peg 400/Pf [Systane 0.3-0.4% Eye Drop] 1 ea OP BID PRN 01/20/18 Estrogens, Conjugated [Premarin] 1 appl VG Q72H 01/24/18 fluticasone propionate 50 mcg/actuation nasal spray,suspension 1 spray VLADIMIR DAILY #9.9 g 09/14/18 pen needle,diabetic dual safty 30 gauge x 3/16" See Dose Instructions .ROUTE .MEDSUPPLY #100 ea 01/31/19 cyanocobalamin (vitamin B-12) 2,500 mcg tablet 2,500 mcg PO DAILY #90 tab 02/19/19 blood sugar diagnostic See Rx Instructions .ROUTE .COMPLEX #100 strip 03/06/19 lancets See Rx Instructions .ROUTE .COMPLEX #100 each 06/18/19 escitalopram oxalate 20 mg tablet 20 mg PO DAILY #30 tab 06/20/19 losartan 50 mg tablet 50 mg PO DAILY #30 tab 06/20/19 trazodone 100 mg tablet 100 mg PO HS #30 tab 07/03/19 Atorvastatin Calcium [Lipitor] 1 tab PO HS 08/14/19 Calcium Carbonate/Vitamin D3 [Calcium 600-Vit D3 400 Tablet] 1 tab PO DAILY 08/14/19 Cholecalciferol [Vitamin D] 1 tab PO DAILY 08/14/19 Insulin Detemir [Levemir Flextouch] 25 units SQ DAILY 08/14/19 Metoprolol Tartrate [Lopressor] 1 tab PO BID 08/14/19 Mv-Mins No.22/Lut/Om3/Dha/Epa [Tozal Softgel] 1 tab PO TID 08/14/19 Omeprazole 1 cap PO DAILY 08/14/19 Enoxaparin Sodium [Lovenox] 40 mg SC Q24H #7 disp.syrin 08/17/19 Sennosides/Docusate Sodium [Senokot-S] 1 tab PO HS #20 tab 08/17/19 oxyCODONE HCL/ACETAMINOPHEN [Percocet 5 MG/325 MG] 1 - 2 tab PO Q4H PRN #60 tab 08/17/19
[2019-08-17 15:18] VITALS: BP 152/73
== END 2019-08-17 15:15 | DRG 470 ==
LOC: MS 08:20 → EDSTATUS 10:00
PROVIDERS: ADMIT Orthopaedic Surgery; ATTEND Orthopaedic Surgery
CPT/HCPCS: 36415; 73560; 80048; 80053; 85025; 85027; 86850; 97110; 97116; 97161; 97165; 97530; 97535; P9016